=== PATIENT | male | born 1960 | race Caucasian/White ===

== ENCOUNTER 2019-03-27 15:56 | Inpatient (IN) | payer MEDICARE, MEDICAID ==
--- NOTE | 2019-03-27 16:15 | ER Document Report ---
ED NIH Stroke Scale - NIH Stroke Scale *: 1. NIH scale should be completed with appropriate accompanying assessment tools. *: 2. The NIH should reflect what the patient is capable of doing and should not be coached by the clinician. 1a. Level of Consciousness: 0=Alert;keenly responsive -: 1=Drowsy -: 2=Obtunded -: 3=Coma/unresponsive or reflex to noxious stimuli. 1a. Responses: 0 1b. Orientation Questions: a. What month is it? -: b. How old are you? -: 0=Answers both questions correctly. -: 1=Answers one question correctly or patient is intubated or has orotracheal trauma. -: 2=Answers neither question correctly. 1b. Responses: 1 - states does not know sinceprevious stroke 1c. Response to commands: a. Open and close eyes? -: b. Developmental Services Worker and release hand? -: Credit is given despite weakness. Demonstration of task is permitted. Substitute command if hands cannot be used. -: 0=Performs both tasks correctly -: 1=Performs one task correctly -: 2=Performs neither task correctly 1c. Responses: 0 2. Gaze: Establish eye contact and instruct patient to "Follow my finger" -: 0=Normal -: 1=Partial gaze palsy. Gaze is abnormal in one or both eyes, but where forced deviation or total gaze paresis is not present. -: 2=Forced deviation or total gaze paresis. 2. Responses: 0 3. Visual Hightower: Sees fingers in all four quadrants. -: 0=No visual loss. -: 1=Partial hemianopsia. -: 2=Complete hemianopsia. -: 3=Bilateral hemianopsia (including Cortical blindness) 3. Responses: 1 4. Facial Movement: Instruct patient to: -: a. Show me your teeth -: b. Raise your eyebrows -: c. Close your eyes -: d. Smile -: 0=Normal symmetrical movement -: 1=Minor paralysis (flattened nasolabial fold, asymmetry on smiling). -: 2=Partial paralysis (total or near total paralysis of lower face). -: 3=Complete paralysis of upper and lower face 4. Responses: 0 5. Motor functions (left arm): Alternate sides and extend each arm with palms down (90 degrees if sitting or 45 degrees for supine). -: 0=No drift;limb holds for full 10 seconds. -: 1=Drift; limb holds but drifts down before full 10 seconds, but does not hit bed. -: 2=Some effort against gravity; limb cannot get to or maintain position. -: 3=No effort against gravity; limb falls. -: 4=No movement. -: UN=Amputation, joint fusion, explain in comments. 5. Responses (left arm): 0 5. Motor Functions (right arm): Alternate sides and extend each arm with palms down (90 degrees if sitting or 45 degrees for supine). -: 0=No drift;limb holds for full 10 seconds. -: 1=Drift; limb holds but drifts down before full 10 seconds, but does not hit bed. -: 2=Some effort against gravity; limb cannot get to or maintain position. -: 3=No effort against gravity; limb falls. -: 4=No movement. -: UN=Amputation, joint fusion, explain in comments. 5. Responses (right arm): 0 6. Motor Functions (left leg): With patient lying supine, alternate sides and extend each leg (30 degrees always while supine). -: 0=No drift, leg holds position for full 5 seconds -: 1=Drift; leg falls before full 5 seconds but does not hit bed. -: 2=Some effort against gravity, leg falls to bed but some effort against gravity. -: 3=No effort against gravity, leg falls to bed immediately. -: 4=No movement. -: UN=Amputation, joint fusion; explain in comments. 6. Motor Functions (right leg): With patient lying supine, alternate sides and extend each leg (30 degrees always while supine). -: 0=No drift, leg holds position for full 5 seconds -: 1=Drift; leg falls before full 5 seconds but does not hit bed. -: 2=Some effort against gravity, leg falls to bed but some effort against gravity. -: 3=No effort against gravity, leg falls to bed immediately. -: 4=No movement. -: UN=Amputation, joint fusion; explain in comments. 7. Limb Ataxia: With eyes open instruct patient to: -: a. "Touch your finger to your nose". -: b. "Touch your heel to your lyons" -: 0=Absent -: 1=Present in one limb. -: 2=Present in two limbs. -: UN=Amputation or joint fusion; explain in comments. 7. Responses: 0 8. Sensory: Test sensation using pinprick or noxious stimuli. Test as many body parts as possible. -: 0=Normal;no sensory loss -: 1=Mile to moderate sensory loss (patient feels pin prick but is less sharp on affected side). -: 2=Severe or total sensory loss. 8. Responses: 0 9. Best Language: Instruct patient to: -: a. "Describe what you see in this picture." -: b. "Name the items in this picture." -: c. "Read these sentences." -: 0=No aphasia, normal -: 1=Mild to moderate aphasia. -: 2=Severe aphasia -: 3=Mute, global aphasia, no usable speech or auditory comprehension. 9. Responses: 1 10. Articulation, Dysarthia: Instruct patient to: -: "Read these words" or "Repeat these words" -: 0=Normal -: 1=Mild to moderate; patient may slur some words but can be understood without difficulty. -: 2=Severe; patients speech so slurred as to be unintelligible in the absence of dysphasia. -: UN=Intubated or other physical barrier, explain in comments. 10. Responses: 0 11. Extinction or inattention: 0=No abnormality -: 1= Visual, tactile, auditory, spatial, or personal inattention or extinction to bilateral simulation in one or the sensory modalities. -: 2=Profound leonard-inattention or leonard-inattention to more than one modality; does not recognize own hand. 11. Responses: 0 Total Score: 3
--- NOTE | 2019-03-27 16:20 | ER Document Report ---
ED Medical Screen (RME) - General Chief Complaint: S/S of Possible Stroke Stated Complaint: POSSIBLE STROKE Time Seen by Provider: 03/27/19 16:05 Primary Care Provider: MANISH POLLARD MD [Primary Care Provider] - Follow up as needed Mode of Arrival: Wheelchair Information source: Relative Notes: 58-year-old male presented in the for increased confusion more than normal. He had a stroke 6 years ago. states that when he came home with his friend he was slurring his speech and was not acting his normal self. She states that he always has tremors since his last stroke. She states the last time she saw him normal was at 815 this morning. When you asked the NIH questions he did did not know the month but answered all other questions appropriately with clear speech. states he does not know the month of the year since his last stroke. Patient does have tremors which states he has had since the last stroke but they are worse than normal. She states he looked very sick and like he was the past that when he came home she became very concerned and brought him to the emergency room. She states he does smoke 1/2 pack a day but does not drink or do any drugs. She states she he goes and helps a friend out sometimes and that is where he was when he came home. I have greeted and performed a rapid initial assessment of this patient. A comprehensive ED assessment and evaluation of the patient, analysis of test results and completion of medical decision making process will be conducted by an additional ED providers. TRAVEL OUTSIDE OF THE [place] IN LAST 30 DAYS: No - Related Data Allergies/Adverse Reactions: No Known Allergies Allergy (Unverified 01/06/13 11:46) Past Medical History - Past Medical History Cardiac Medical History: Reports: Hx Hypercholesterolemia, Hx Hypertension Denies: Hx Atrial Fibrillation, Hx Congestive Heart Failure, Hx Coronary Artery Disease, Hx Heart Attack, Hx Peripheral Vascular Disease, Hx Pulmonary Embolism, Hx Heart Murmur Pulmonary Medical History: Reports: Hx Pneumonia - as a child Denies: Hx Asthma, Hx Respiratory Failure, Hx Sleep Apnea, Hx Tuberculosis Neurological Medical History: Reports: Hx Cerebrovascular Accident - 08/30/2009. Denies: Hx Seizures Malignancy Medical History: Denies Hx Leukemia, Denies Hx Lung Cancer GI Medical History: Denies: Hx Hepatitis, Hx Hiatal Hernia, Hx Ulcer Musculoskeltal Medical History: Denies Hx Arthritis, Denies Hx Fibromyalgia, Denies Hx Multiple Sclerosis, Denies Hx Muscular Dystrophy Psychiatric Medical History: Denies: Hx Dementia Traumatic Medical History: Denies: Hx Fractures Infectious Medical History: Denies: Hx Hepatitis, Hx HIV Past Surgical History: Denies: Hx Open Heart Surgery, Hx Pacemaker Physical Exam - Vital signs Vitals: Temp Pulse Resp BP Pulse Ox 98.3 F 85 16 97/57 L 95 03/27/19 16:07 03/27/19 16:07 03/27/19 16:07 03/27/19 16:07 03/27/19 16:07 Course - Vital Signs Vital signs: Temp Pulse Resp BP Pulse Ox 98.3 F 85 16 97/57 L 95 03/27/19 16:07 03/27/19 16:07 03/27/19 16:07 03/27/19 16:07 03/27/19 16:07 Doctor's Discharge - Discharge Referrals: MANISH POLLARD MD [Primary Care Provider] - Follow up as needed
--- NOTE | 2019-03-27 16:32 | RADIOLOGY REPORT (SQ) ---
EXAM DESCRIPTION: CT HEAD WITHOUT COMPLETED DATE/TIME: 03/27/2019 4:22 pm REASON FOR STUDY: weakness previous stroke rule out stroke COMPARISON: CT brain dated 08/28/2009, MRI brain dated 08/29/2009 TECHNIQUE: Axial images acquired through the brain without intravenous contrast. Images reviewed wi th bone, brain and subdural windows. Additional sagittal and coronal reconstructions were generated. Images stored on PACS. All CT scanners at this facility use dose modulation, iterative reconstruction, and/or weight based d osing when appropriate to reduce radiation dose to as low as reasonably achievable (ALARA). [facility]: Dose Right [facility]: CareDose [facility]: Dose Right [facility]: Teradose 4D [facility]: Tugende RADIATION DOSE: CT Rad equipment meets quality standard of care and radiation dose reduction techniq ues were employed. CTDIvol: 48.6 mGy. DLP: 904 mGy-cm. mGy. LIMITATIONS: None. FINDINGS: VENTRICLES: Prominent. CEREBRUM: No masses. No hemorrhage. No midline shift. Areas of low density in the white matter mos t likely due to chronic micro-vascular ischemic change. No evidence for acute infarction. CEREBELLUM: No masses. No hemorrhage. No alteration of density. No evidence for acute infarction. There is an old infarct in the left aspect of the fer. EXTRAAXIAL SPACES: Mild age-related involutional change. No fluid collections. No masses. ORBITS AND GLOBE: No intra- or extraconal masses. Normal contour of globe without masses. CALVARIUM: No fracture. PARANASAL SINUSES: No fluid or mucosal thickening. SOFT TISSUES: No mass or hematoma. OTHER: No other significant finding. IMPRESSION: MILD CHRONIC CHANGES OF ATROPHY AND MICROVASCULAR ISCHEMIA. NO ACUTE PROCESS. EVIDENCE OF ACUTE STROKE: NO. COMMENT: Pertinent positive or negative findings of the imaging study reported as a CRITICAL EXAM karmen [employer] at16:25 on 03/27/2019. Category of Critical Exam: Code stroke. TECHNICAL DOCUMENTATION: JOB ID: [id number] Quality ID # [id number]: Final reports with documentation of one or more dose reduction techniques (e.g., Au tomated exposure control, adjustment of the mA and/or kV according to patient size, use of iterative reconstruction technique) 2010 [employer]- All Rights Reserved Reading location - IP/workstation name: [email or web address]
--- NOTE | 2019-03-27 16:54 | ER Document Report ---
ED General - General Chief Complaint: S/S of Possible Stroke Stated Complaint: POSSIBLE STROKE Time Seen by Provider: 03/27/19 16:05 Primary Care Provider: MANISH POLLARD MD [Primary Care Provider] - Follow up as needed Mode of Arrival: Wheelchair Information source: Patient Notes: HPI: 58-year-old male with past medical history as recorded including a stroke around 6 years ago with some baseline left lower extremity weakness affected more than the right leg who presents today with his sister. He lives with his sister. Supposedly the patient had an episode yesterday and today both witnessed by his friend. Patient states he was sitting and when he went to stand up he saw "different colored lights". He states he felt very lightheaded. He is not able to distinguish between presyncope and vertigo. He states he started to have some trembling in bilateral legs. No headache, neck pain, chest pain, abdominal pain, palpitations, fevers, vomiting, or diarrhea. He did have some slight confusion above baseline. This lasted around 10 minutes yesterday and again 10 minutes today. The sister states when she saw the patient he looked "very sick" when she got home. Patient's baseline mental status with some very mild confusion. He normally does not know the year but answers all questions appropriately. ROS: See HPI All other review of systems reviewed and otherwise negative Reviewed vital signs and nursing note as charted by RN. PHYSICAL EXAM: CONSTITUTIONAL: Alert and oriented and responds appropriately to questions. Well-appearing; well-nourished HEAD: Normocephalic; atraumatic EYES: PERRL; full extraocular range of motion; no nystagmus ENT: Normal nose; no rhinorrhea; moist mucous membranes; pharynx without lesions noted NECK: Supple without meningismus; non-tender; no carotid bruit; no cervical lymphadenopathy, no masses CARD: Regular rate and rhythm; no murmurs; symmetric distal pulses RESP: Normal chest excursion without splinting or tachypnea; breath sounds clear and equal bilaterally ABD/GI: Normal bowel sounds; non-distended; soft, non-tender; no palpable organomegaly or masses BACK: The back appears normal and is non-tender to palpation EXT: Normal ROM in all joints; non-tender to palpation; no edema SKIN: No acute lesions noted NEURO: CN 2-12 intact; 5/5 bilateral upper and lower extremity strength with sensation intact to light touch. NIH score is currently 0 PSYCH: The patient's mood and manner are appropriate. Grooming and personal hygiene are appropriate. TRAVEL OUTSIDE OF THE [place] IN LAST 30 DAYS: No - Related Data Allergies/Adverse Reactions: No Known Allergies Allergy (Unverified 01/06/13 11:46) Past Medical History - General Information source: Relative - Social History Smoking Status: Unknown if Ever Smoked Family History: Reviewed & Not Pertinent Patient has suicidal ideation: No Patient has homicidal ideation: No - Past Medical History Cardiac Medical History: Reports: Hx Hypercholesterolemia, Hx Hypertension Denies: Hx Atrial Fibrillation, Hx Congestive Heart Failure, Hx Coronary Artery Disease, Hx Heart Attack, Hx Peripheral Vascular Disease, Hx Pulmonary Embolism, Hx Heart Murmur Pulmonary Medical History: Reports: Hx Pneumonia - as a child Denies: Hx Asthma, Hx Respiratory Failure, Hx Sleep Apnea, Hx Tuberculosis Neurological Medical History: Reports: Hx Cerebrovascular Accident - 08/30/2009. Denies: Hx Seizures Renal/ Medical History: Denies: Hx Peritoneal Dialysis Malignancy Medical History: Denies Hx Leukemia, Denies Hx Lung Cancer GI Medical History: Denies: Hx Hepatitis, Hx Hiatal Hernia, Hx Ulcer Musculoskeletal Medical History: Denies Hx Arthritis, Denies Hx Fibromyalgia, Denies Hx Multiple Sclerosis, Denies Hx Muscular Dystrophy Psychiatric Medical History: Denies: Hx Dementia Traumatic Medical History: Denies: Hx Fractures Infectious Medical History: Denies: Hx Hepatitis, Hx HIV Past Surgical History: Denies: Hx Open Heart Surgery, Hx Pacemaker Physical Exam - Vital signs Vitals: Temp Pulse Resp BP Pulse Ox 98.3 F 85 16 97/57 L 95 03/27/19 16:07 03/27/19 16:07 03/27/19 16:07 03/27/19 16:07 03/27/19 16:07 Course - Re-evaluation Re-evalutation: Given the above history and physical, in triage the patient initially was taken back as a possible code stroke. Patient currently has no focal neurological deficits. Patient does not know the year which is baseline according to the sister at bedside since the stroke 6 years ago. Patient symptomatology appears to be bilateral to the lower extremities. I suppose this could be intracerebral, cardiac, dehydration, or electrolyte related. CT scan of the head, cardiac panel, EKG, and basic labs are pending. 08/23/19 16:51 EKG shows a HR of 67, normal axis, incomplete RBBB with inverted t waves in v2 and III. 03/27/19 17:21 CT imaging as recorded. Labs as recorded. Patient does appear to have acute renal failure. I have provided a liter of fluid. I believe patient will be admitted for gentle rehydration. Potassium as recorded. - Vital Signs Vital signs: Temp Pulse Resp BP Pulse Ox 98.3 F 85 16 97/57 L 95 03/27/19 16:07 03/27/19 16:07 03/27/19 16:07 03/27/19 16:07 03/27/19 16:07 - Laboratory Result Diagrams: 03/27/19 16:32 03/27/19 16:32 Laboratory results interpreted by me: 03/27/19 03/27/19 16:32 16:32 RBC 4.04 L Hgb 12.2 L Hct 35.6 L Potassium 3.5 L BUN 51 H Creatinine 3.61 H Est GFR ( Amer) 21 L Est GFR (MDRD) Non-Af 17 L Direct Bilirubin 0.5 H Creatine Kinase 54 L Total Protein 8.7 H Critical Care Note - Critical Care Note Total time excluding time spent on procedures (mins): 35 Discharge - Discharge Clinical Impression: Dehydration Acute renal failure Qualifiers: Acute renal failure type: unspecified Qualified Code(s): N17.9 - Acute kidney failure, unspecified Condition: Fair Disposition: ADMITTED INPATIENT Admitting Provider: Nikolas (Hospitalist) Referrals: MANISH POLLARD MD [Primary Care Provider] - Follow up as needed
[2019-03-27 16:55] LABS: ABSOLUTE BASOPHILS # (AUTO) 0.1 10^3/uL (0.0-0.2); ABSOLUTE EOSINOPHILS # (AUTO) 0.2 10^3/uL (0.0-0.6); ABSOLUTE LYMPHOCYTES (AUTO) 2.4 10^3/uL (0.5-4.7); ABSOLUTE MONOCYTES (AUTO) 0.9 10^3/uL (0.1-1.4); ABSOLUTE NEUT (AUTO) 5.7 10^3/uL (1.7-8.2); BASOPHILS % (AUTO) 0.8 % (0-2); EOSINOPHILS % (AUTO) 2.4 % (0-6); HEMATOCRIT 35.6 % (37.9-51.0); HEMOGLOBIN 12.2 g/dL (13.5-17.0); LYMPHOCYTES % (AUTO) 25.7 % (13-45); MEAN CORPUSCULAR HEMOGLOBIN 30.2 pg (27.0-33.4); MEAN CORPUSCULAR HGB CONC 34.3 g/dL (32.0-36.0); MEAN CORPUSCULAR VOLUME 88 fl (80-97); PLATELET COUNT 378 10^3/uL (150-450); RED BLOOD COUNT 4.04 10^6/uL (4.35-5.55); RED CELL DISTRIBUTION WIDTH 13.8 % (11.5-14.0); SEGMENTED NEUTROPHILS % (AUTO) 61.1 % (42-78); TOTAL CELLS COUNTED % (AUTO) 100 %; WHITE BLOOD COUNT 9.4 10^3/uL (4.0-10.5)
[2019-03-27 17:02] LABS: INTERNATIONAL RATION (INR) 1.18; PROTHROMBIN TIME 15.1 SEC (11.4-15.4)
[2019-03-27 17:03] LABS: PARTIAL THROMBOPLASTIN TIME 25.1 SEC (23.5-35.8)
[2019-03-27 17:12] LABS: ALBUMIN 4.6 g/dL (3.5-5.0); ALKALINE PHOSPHATASE 43 U/L (38-126); ANION GAP 10 (5-19); ASPARTATE AMINO TRANSFERASE 35 U/L (17-59); BILIRUBIN,DIRECT 0.5 mg/dL (0.0-0.4); BILIRUBIN,TOTAL 0.6 mg/dL (0.2-1.3); BLOOD UREA NITROGEN 51 mg/dL (7-20); CARBON DIOXIDE 25 mmol/L (22-30); CHLORIDE 106 mmol/L (98-107); CREATINE KINASE 54 U/L (55-170); GLUCOSE 93 mg/dL (75-110); POTASSIUM 3.5 mmol/L (3.6-5.0); TOTAL PROTEIN 8.7 g/dL (6.3-8.2)
[2019-03-27] MEDS ORDERED: NORMAL SALINE 1000 ML 1,000 ML IV ONE (17:20)
[2019-03-27 17:35] LABS: ALCOHOL < 10 mg/dL (NONE DETECTED)
[2019-03-27] MEDS ORDERED: MAGNESIUM HYDROXIDE SUSP 30 ML UDCUP PO PRN (18:20)
[2019-03-27] MEDS ORDERED: OXYCODONE-ACETAMINOPHEN 5-325 MG TABLET PO PRN (18:20)
[2019-03-27] MEDS ORDERED: ACETAMINOPHEN 325 MG TABLET PO PRN (18:20)
[2019-03-27] MEDS ORDERED: ONDANSETRON HCL INJ/PF 4 MG/2 ML SDV IV PRN (18:20)
[2019-03-27] MEDS ORDERED: ONDANSETRON 4 MG TAB.RAPDIS PO PRN (18:20)
[2019-03-27] MEDS ORDERED: ENOXAPARIN SODIUM INJ 40 MG/0.4 ML DISP.SYRIN SUBCUT SCH (18:45)
--- NOTE | 2019-03-27 18:48 | PDOC H&P ---
History of Present Illness Admission Date/PCP: 03/27/19 18:28 MANISH POLLARD MD 03/27/2019 admitted for confusion lightheaded ataxia and "shaky". Elevated creatinine History of Present Illness: DONALD GOMES is a 58 year old male who for the last week now has felt lightheaded and "off-balance". he has also been shaky and confused according to his sister. Patient is also felt weaker in the last week. Patient had a CVA about 6 years ago that left him with weakness in his left lower extremity. Patient is also had some dysarthria with his speech, but that seems to be worse in the last week as well according to his sister On his admission labs his BUN is elevated at 51 creatinine 3.61 Past Medical History Cardiac Medical History: Reports: Hyperlipidema, Hypertension Denies: Atrial Fibrillation, Congestive Heart Failure, Coronary Artery Di sease, Myocardial Infarction, Peripheral Vascular Disease, Pulmonary Embolism, Heart Murmur Pulmonary Medical History: Reports: Pneumonia - as a child Denies: Asthma, Respiratory Failure, Sleep Apnea, Tuberculosis Neurological Medical History: Reports: Ischemic CVA Denies: Seizures Malignancy Medical History: Denies: Leukemia, Lung Cancer GI Medical History: Denies: Hepatitis, Hiatal Hernia Musculoskeltal Medical History: Denies: Arthritis, Fibromyalgia Psychiatric Medical History: Denies: Dementia Hematology: Denies: Anemia, Hemophilia, Sickle Cell Disease Infectious Medical History: Denies: HIV Past Surgical History Past Surgical History: Denies: Pacemaker Social History Smoking Status: Unknown if Ever Smoked Hx Recreational Drug Use: Yes - Yrs ago Hx Prescription Drug Abuse: No - Advance Directive Resuscitation Status: Full Code Family History Family History: Reviewed & Not Pertinent Parental Family History Reviewed: No Children Family History Reviewed: No Sibling(s) Family History Reviewed.: No Medication/Allergy Home Medications: Aspirin [Aspirin EC] 81 mg PO DAILY 01/06/13 Dipyridamole [Persantine] 50 mg PO BID 01/06/13 Lisinopril [Prinivil 40 mg Tablet] 40 mg PO DAILY 01/06/13 Pravastatin Sodium [Pravachol] 80 mg PO QHS 01/06/13 Fenofibric Acid (Choline) [Trilipix] 135 mg PO DAILY 02/11/14 Allergies/Adverse Reactions: No Known Allergies Allergy (Unverified 01/06/13 11:46) Review of Systems Constitutional: PRESENT: weakness. ABSENT: chills, fever(s), headache(s), weight gain, weight loss Eyes: PRESENT: visual disturbances - Patient states that things have been blurred or hazy in the last week with his vision Cardiovascular: ABSENT: chest pain, dyspnea on exertion, edema, orthropnea, palpitations Respiratory: ABSENT: cough, hemoptysis Neurological: PRESENT: lack of coordination, tremor(s), weakness Psychiatric: ABSENT: anxiety, depression, homidical ideation, suicidal ideation Physical Exam Vital Signs: Temp Pulse Resp BP Pulse Ox 98.3 F 85 16 97/57 L 95 03/27/19 16:07 03/27/19 16:07 03/27/19 16:07 03/27/19 16:07 03/27/19 16:07 Intake & Output 03/26/19 03/27/19 03/28/19 06:59 06:59 06:59 Weight 71.668 kg General appearance: PRESENT: mild distress Head exam: PRESENT: atraumatic, normocephalic Eye exam: PRESENT: conjunctiva pink, EOMI, PERRLA. ABSENT: scleral icterus Neck exam: ABSENT: carotid bruit, JVD, lymphadenopathy, thyromegaly Respiratory exam: PRESENT: clear to auscultation jackie. ABSENT: rales, rhonchi, wheezes Cardiovascular exam: PRESENT: RRR. ABSENT: diastolic murmur, rubs, systolic murmur Neurological exam: PRESENT: alert, awake, oriented to person, oriented to place, oriented to time, oriented to situation, CN II-XII grossly intact - Workforce Specialist are strong bilaterally. Patient has a weakness in his left lower extremity that is old, other Results Laboratory Results: 03/27/19 16:32 03/27/19 16:32 03/27/19 03/27/19 16:32 16:32 WBC 9.4 RBC 4.04 L Hgb 12.2 L Hct 35.6 L MCV 88 MCH 30.2 MCHC 34.3 RDW 13.8 Plt Count 378 Seg Neutrophils % 61.1 Sodium 140.7 Potassium 3.5 L Chloride 106 Carbon Dioxide 25 Anion Gap 10 BUN 51 H Creatinine 3.61 H Est GFR ( Amer) 21 L Glucose 93 Calcium 10.0 Total Bilirubin 0.6 AST 35 Alkaline Phosphatase 43 Total Protein 8.7 H Albumin 4.6 03/27/19 03/27/19 16:32 16:32 Creatine Kinase 54 L CK-MB (CK-2) < 0.22 Impressions: Head CT 03/27/19 16:05 IMPRESSION: MILD CHRONIC CHANGES OF ATROPHY AND MICROVASCULAR ISCHEMIA. NO ACUTE PROCESS. EVIDENCE OF ACUTE STROKE: NO. Assessment and Plan - Diagnosis (1) CVA (cerebral vascular accident) Is this a current diagnosis for this admission?: Yes Plan: Patient has CVA 6 years ago and was actually admitted here at [place]. This left him with a residual left lower extremity weakness some speech dysarthria. According to the sister in the last day or 2 he is seemed weaker than normal and more confused. According to a coworker it is been going on about a week now She emphatically denies any drugs no marijuana no alcohol, no illegal substances. Patient does admit to smoking about 10 cigarettes/day. (2) Acute renal failure Qualifiers: Acute renal failure type: unspecified Qualified Code(s): N17.9 - Acute kidney failure, unspecified Is this a current diagnosis for this admission?: Yes Plan: Patient's BUN is 51 creatinine 3.61 GFR 17. CK is 5413 8.7 sodium 140 potassium 3.5 as far as by history I can find no previous functions although I will search the records. Patient and his sister do not admit to him having any kind of kidney disease (3) Dehydration Is this a current diagnosis for this admission?: Yes Plan: Patient electrolytes BUN and creatinine indicate dehydration acute renal injury - Time Time Spent with patient: 25-34 minutes
[2019-03-27] MEDS ORDERED: CLOPIDOGREL BISULFATE 75 MG TABLET PO SCH (19:00)
[2019-03-27] MEDS ORDERED: LISINOPRIL 10 MG TABLET PO SCH (19:15)
[2019-03-27 21:04] LABS: INTERNATIONAL RATION (INR) 1.24; PROTHROMBIN TIME 15.6 SEC (11.4-15.4)
[2019-03-27] MEDS: NORMAL SALINE 1000 ML 1,000 ML IV PRN (21:11)
[2019-03-27] MEDS: ENOXAPARIN SODIUM INJ 30 MG/0.3 ML DISP.SYRIN SUBCUT SCH (21:12)
[2019-03-27] MEDS: ASPIRIN 81 MG TABLET, ENT COATED PO SCH (22:58)
[2019-03-27] MEDS: FAMOTIDINE 20 MG TABLET PO SCH (22:59)
--- NOTE | 2019-03-27 23:56 | RADIOLOGY REPORT (SQ) ---
CLINICAL HISTORY: confusion, ataxia COMPARISON: None. TECHNIQUE: MR BRAIN WITHOUT IV CONTRAST on 03/27/2019 12:00 AM CDT FINDINGS: There are no areas of restricted diffusion. There is mild diffuse cerebral atrophy. There is no acute hemorrhage, midline shift, mass effect. There is mild diffuse cerebral atrophy. There is an old lacunar infarct in the left fer. Expected intracranial flow voids are present. The orbits, globes, paranasal sinuses and mastoid air cells are clear. IMPRESSION: No acute intracranial findings.
--- NOTE | 2019-03-28 00:05 | RADIOLOGY REPORT (SQ) ---
CLINICAL HISTORY: ataxia, confusion, previous cva COMPARISON: None. TECHNIQUE: MR BRAIN ANGIOGRAPHY WITHOUT IV CONTRAST on 03/27/2019 12:00 AM CDT This exam was performed according to our departmental dose-optimization program, which includes automated exposure control, adjustment of the mA and/or kV according to patient size and/or use of iterative reconstruction technique. MIP reconstructions were generated. Stenoses are calculated by NASCET criteria. FINDINGS: Bilateral anterior and middle cerebral arteries are diffusely patent. The vertebral basilar system is unremarkable other than diminutive in appearance of distal right vertebral artery. IMPRESSION: Diminutive appearance of right vertebral artery, incompletely assessed. Otherwise no significant vascular abnormalities CAROTID STENOSIS REFERENCE USING NASCET CRITERIA: % ICA stenosis = (1 - narrowest ICA diameter/diameter of distal cervical ICA) x 100. Mild - <50% stenosis. Moderate - 50-69% stenosis. Severe - 70-94% stenosis. Near occlusion - 95-99% stenosis. Occluded - 100% stenosis.
[2019-03-28 07:08] LABS: ABSOLUTE BASOPHILS # (AUTO) 0.1 10^3/uL (0.0-0.2); ABSOLUTE EOSINOPHILS # (AUTO) 0.3 10^3/uL (0.0-0.6); ABSOLUTE LYMPHOCYTES (AUTO) 2.4 10^3/uL (0.5-4.7); ABSOLUTE MONOCYTES (AUTO) 0.6 10^3/uL (0.1-1.4); ABSOLUTE NEUT (AUTO) 3.5 10^3/uL (1.7-8.2); BASOPHILS % (AUTO) 1.2 % (0-2); EOSINOPHILS % (AUTO) 3.8 % (0-6); HEMATOCRIT 32.9 % (37.9-51.0); HEMOGLOBIN 11.3 g/dL (13.5-17.0); LYMPHOCYTES % (AUTO) 34.7 % (13-45); MEAN CORPUSCULAR HEMOGLOBIN 30.7 pg (27.0-33.4); MEAN CORPUSCULAR HGB CONC 34.5 g/dL (32.0-36.0); MEAN CORPUSCULAR VOLUME 89 fl (80-97); MONOCYTES % (AUTO) 9.3 % (3-13); PLATELET COUNT 262 10^3/uL (150-450); RED CELL DISTRIBUTION WIDTH 13.6 % (11.5-14.0); TOTAL CELLS COUNTED % (AUTO) 100 %; WHITE BLOOD COUNT 6.8 10^3/uL (4.0-10.5)
[2019-03-28 07:36] LABS: ALKALINE PHOSPHATASE 37 U/L (38-126); ANION GAP 10 (5-19); ASPARTATE AMINO TRANSFERASE 24 U/L (17-59); BILIRUBIN,DIRECT 0.3 mg/dL (0.0-0.4); BILIRUBIN,TOTAL 0.5 mg/dL (0.2-1.3); BLOOD UREA NITROGEN 48 mg/dL (7-20); CALCIUM 9.1 mg/dL (8.4-10.2); CARBON DIOXIDE 23 mmol/L (22-30); CHLORIDE 109 mmol/L (98-107); CHOLESTEROL 118.82 mg/dL (0-200); GLUCOSE 82 mg/dL (75-110); PHOSPHORUS 4.1 mg/dL (2.5-4.5); POTASSIUM 4.3 mmol/L (3.6-5.0); TRIGLYCERIDES 118 mg/dL (<150)
[2019-03-28 07:48] LABS: DIRECT LDL 70 mg/dL (<100)
[2019-03-28] MEDS ORDERED: HYDROCHLOROTHIAZIDE 12.5 MG TABLET PO SCH (08:00)
[2019-03-28] MEDS ORDERED: AMLODIPINE BESYLATE 10 MG TABLET PO SCH (10:00)
[2019-03-28] MEDS: DOCUSATE SODIUM 100 MG CAPSULE PO SCH (10:25)
[2019-03-28] MEDS: FAMOTIDINE 20 MG TABLET PO SCH ×2 (10:25→21:00)
[2019-03-28] MEDS: ENOXAPARIN SODIUM INJ 30 MG/0.3 ML DISP.SYRIN SUBCUT SCH (10:26)
--- NOTE | 2019-03-28 11:56 | Progress Note Acknowledgement ---
Progress Note Acknowledgement Progess Note Acknowledgement: I, the undersigned member of the medical staff with appropriate privileges and with supervisory authority over [ PAC ], a dependent practice allied health professional, acknowledge that I have reviewed the progress notes entered on this patient, and in my professional judgment believe that the assessment made and/or any care evidenced was appropriate
--- NOTE | 2019-03-28 12:04 | PDOC PROGRESS REPORT ---
Subjective Progress Note for:: 03/28/19 Subjective:: 03/28/2019. He was admitted to hospital yesterday for confusion ataxia and lightheadedness. Patient's neurology work-up so far has been negative MRI of the brain negative MRI of the brain negative CT of the head scan only chronic ischemic changes no acute changes. Graph patient reports he is feeling stronger today also is alert and oriented. Possibly DC to home tomorrow if renal function continues to improve Reason For Visit: ALTERED MENTAL STATUS,ATAXIA, CVA HYPERTENSION Physical Exam Vital Signs: Temp Pulse Resp BP Pulse Ox 98.2 F 71 16 96/55 L 98 03/28/19 08:08 03/28/19 08:08 03/28/19 08:08 03/28/19 08:08 03/28/19 08:08 Intake & Output 03/27/19 03/28/19 03/29/19 06:59 06:59 06:59 Intake Total 1000 Output Total 0 Balance 1000 Weight 65.5 kg General appearance: PRESENT: no acute distress, well-developed, well-nourished Respiratory exam: PRESENT: clear to auscultation jackie. ABSENT: rales, rhonchi, wheezes Cardiovascular exam: PRESENT: RRR. ABSENT: diastolic murmur, rubs, systolic murmur Neurological exam: PRESENT: alert, awake, oriented to person, oriented to place, oriented to time, oriented to situation, CN II-XII grossly intact, other - Patient answers all questions appropriately, states he is feeling better, stronger, less confused. ABSENT: motor sensory deficit Psychiatric exam: PRESENT: appropriate affect, normal mood. ABSENT: homicidal ideation, suicidal ideation Results Laboratory Results: 03/28/19 06:30 03/28/19 06:30 03/27/19 03/27/19 03/27/19 16:32 16:32 16:32 WBC 9.4 RBC 4.04 L Hgb 12.2 L Hct 35.6 L MCV 88 MCH 30.2 MCHC 34.3 RDW 13.8 Plt Count 378 Seg Neutrophils % 61.1 Sodium 140.7 Potassium 3.5 L Chloride 106 Carbon Dioxide 25 Anion Gap 10 BUN 51 H Creatinine 3.61 H Est GFR ( Amer) 21 L Glucose 93 Calcium 10.0 Phosphorus Magnesium Total Bilirubin 0.6 AST 35 Alkaline Phosphatase 43 Ammonia Total Protein 8.7 H Albumin 4.6 Triglycerides Cholesterol LDL Cholesterol Direct VLDL Cholesterol HDL Cholesterol TSH 0.46 L 03/27/19 03/28/19 03/28/19 20:11 06:30 06:30 WBC 6.8 RBC 3.70 L Hgb 11.3 L Hct 32.9 L MCV 89 MCH 30.7 MCHC 34.5 RDW 13.6 Plt Count 262 Seg Neutrophils % 51.0 Sodium 141.5 Potassium 4.3 Chloride 109 H Carbon Dioxide 23 Anion Gap 10 BUN 48 H Creatinine 2.39 H Est GFR ( Amer) 34 L Glucose 82 Calcium 9.1 Phosphorus 4.1 Magnesium 2.0 Total Bilirubin 0.5 AST 24 Alkaline Phosphatase 37 L Ammonia < 8.7 L Total Protein 7.0 Albumin 4.0 Triglycerides 118 Cholesterol 118.82 LDL Cholesterol Direct 70 VLDL Cholesterol 24.0 HDL Cholesterol 31 L TSH 03/27/19 03/27/19 16:32 16:32 Creatine Kinase 54 L CK-MB (CK-2) < 0.22 Impressions: Brain MRI with MRA 03/27/19 00:00 IMPRESSION: Diminutive appearance of right vertebral artery, incompletely assessed. Otherwise no significant vascular abnormalities CAROTID STENOSIS REFERENCE USING NASCET CRITERIA: % ICA stenosis = (1 - narrowest ICA diameter/diameter of distal cervical ICA) x 100. Mild - <50% stenosis. Moderate - 50-69% stenosis. Severe - 70-94% stenosis. Near occlusion - 95-99% stenosis. Occluded - 100% stenosis. Head MRI 03/27/19 00:00 IMPRESSION: No acute intracranial findings. Head CT 03/27/19 16:05 IMPRESSION: MILD CHRONIC CHANGES OF ATROPHY AND MICROVASCULAR ISCHEMIA. NO ACUTE PROCESS. EVIDENCE OF ACUTE STROKE: NO. Assessment and Plan - Diagnosis (1) CVA (cerebral vascular accident) Is this a current diagnosis for this admission?: Yes Plan: Patient has CVA 6 years ago and was actually admitted here at [facility]. This left him with a residual left lower extremity weakness some speech dysarthria. According to the sister in the last day or 2 he is seemed weaker than normal and more confused. According to a coworker it is been going on about a week now She emphatically denies any drugs no marijuana no alcohol, no illegal substances. Patient does admit to smoking about 10 cigarettes/day. 03/28/2019 MRI, MRA, CT of the head show no acute findings. patient is neurologically stable today, patient states he feels less confused as well as stronger (2) Acute renal failure Qualifiers: Acute renal failure type: unspecified Qualified Code(s): N17.9 - Acute kidney failure, unspecified Is this a current diagnosis for this admission?: Yes Plan: Patient's BUN is 51 creatinine 3.61 GFR 17. CK is 5413 8.7 sodium 140 potassium 3.5 as far as by history I can find no previous functions although I will search the records. Patient and his sister do not admit to him having any kind of kidney disease. 03-28-19 BUN today is come down to 48 creatinine is come down to 2.39. We will continue IV fluids rehydrate. (3) Dehydration Is this a current diagnosis for this admission?: Yes Plan: Patient electrolytes BUN and creatinine indicate dehydration acute renal injury 03/28/2019 his renal functions have improved with IV fluids. He is currently getting normal saline at 150 an hour this was started last night - Time Time Spent with patient: 25-34 minutes - Patient's home medicines are now available to review. I will make adjustments as needed.
[2019-03-28] MEDS ORDERED: LISINOPRIL 10 MG TABLET PO SCH (13:00)
[2019-03-28] MEDS: AMLODIPINE BESYLATE 10 MG TABLET PO SCH (14:30)
[2019-03-28] MEDS: FLUOXETINE HCL 20 MG CAPSULE PO SCH (14:34)
[2019-03-28] MEDS: FENOFIBRATE NANOCRYSTALLIZED 145 MG TABLET PO SCH (14:34)
[2019-03-28] MEDS: HYDROCHLOROTHIAZIDE 12.5 MG TABLET PO SCH (14:34)
[2019-03-28] MEDS ORDERED: LORAZEPAM INJ 2 MG/1 ML VIAL ONE (17:31)
[2019-03-28] MEDS ORDERED: LORAZEPAM INJ 2 MG/1 ML VIAL IV PRN (17:53)
[2019-03-28] MEDS: NORMAL SALINE 1000 ML 1,000 ML IV PRN (18:50)
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
--- NOTE | 2019-03-28 19:08 | EKG REPORT ---
SEVERITY:- BORDERLINE ECG - SINUS RHYTHM PROBABLE LEFT ATRIAL ABNORMALITY : Confirmed by: Yvrose Stallworth MD 28-Mar-2019 19:07:34
[2019-03-28] MEDS: ASPIRIN 81 MG TABLET, ENT COATED PO SCH (21:00)
[2019-03-28 21:27] LABS: URINE AMPHETAMINES SCREEN NEGATIVE; URINE BARBITURATES SCREEN NEGATIVE; URINE BENZODIAZEPINES SCREEN NEGATIVE; URINE COCAINE SCREEN NEGATIVE; URINE MARIJUANA (THC) SCREEN NEGATIVE; URINE METHADONE SCREEN NEGATIVE; URINE PHENCYCLIDINE SCREEN NEGATIVE
[2019-03-29 01:34] LABS: APPEARANCE,URINE CLEAR; BILIRUBIN,URINE NEGATIVE (NEGATIVE); COLOR,URINE YELLOW; GLUCOSE, URINE NEGATIVE (NEGATIVE); KETONES,URINE NEGATIVE (NEGATIVE); LEUKOCYTE ESTERASE,URINE NEGATIVE (NEGATIVE); NITRITE,URINE NEGATIVE (NEGATIVE); PROTEIN,URINE NEGATIVE (NEGATIVE); URINE SPECIFIC GRAVITY 1.016; UROBILINOGEN,URINE NEGATIVE mg/dL (<2.0)
[2019-03-29 02:33] LABS: URINE CREATININE 127.6 mg/dL (22-328)
[2019-03-29 03:43] LABS: ABSOLUTE BASOPHILS # (AUTO) 0.1 10^3/uL (0.0-0.2); ABSOLUTE EOSINOPHILS # (AUTO) 0.3 10^3/uL (0.0-0.6); ABSOLUTE LYMPHOCYTES (AUTO) 2.6 10^3/uL (0.5-4.7); ABSOLUTE MONOCYTES (AUTO) 0.6 10^3/uL (0.1-1.4); ABSOLUTE NEUT (AUTO) 4.6 10^3/uL (1.7-8.2); BASOPHILS % (AUTO) 0.7 % (0-2); EOSINOPHILS % (AUTO) 3.1 % (0-6); HEMATOCRIT 30.7 % (37.9-51.0); HEMOGLOBIN 10.6 g/dL (13.5-17.0); MEAN CORPUSCULAR HEMOGLOBIN 30.5 pg (27.0-33.4); MEAN CORPUSCULAR HGB CONC 34.6 g/dL (32.0-36.0); MEAN CORPUSCULAR VOLUME 88 fl (80-97); MONOCYTES % (AUTO) 7.4 % (3-13); PLATELET COUNT 294 10^3/uL (150-450); RED BLOOD COUNT 3.48 10^6/uL (4.35-5.55); RED CELL DISTRIBUTION WIDTH 13.7 % (11.5-14.0); SEGMENTED NEUTROPHILS % (AUTO) 56.8 % (42-78); TOTAL CELLS COUNTED % (AUTO) 100 %; WHITE BLOOD COUNT 8.2 10^3/uL (4.0-10.5)
[2019-03-29] MEDS: LORAZEPAM INJ 2 MG/1 ML VIAL IV PRN ×3 (04:31→17:56)
[2019-03-29 05:24] LABS: ANION GAP 6 (5-19); BLOOD UREA NITROGEN 35 mg/dL (7-20); CARBON DIOXIDE 23 mmol/L (22-30); CHLORIDE 112 mmol/L (98-107); GLUCOSE 84 mg/dL (75-110); POTASSIUM 3.9 mmol/L (3.6-5.0)
[2019-03-29] MEDS: NORMAL SALINE 1000 ML 1,000 ML IV PRN ×3 (07:00→20:00)
[2019-03-29] MEDS: HYDROCHLOROTHIAZIDE 12.5 MG TABLET PO SCH (07:47)
[2019-03-29] MEDS ORDERED: HYDRALAZINE HCL INJ/PF 20 MG/1 ML SDV IV PRN (09:36)
--- NOTE | 2019-03-29 09:47 | Progress Note Acknowledgement ---
Progress Note Acknowledgement Progess Note Acknowledgement: I, the undersigned member of the medical staff with appropriate privileges and with supervisory authority over [Ramesh Bartholomew], a dependent practice allied health professional, acknowledge that I have reviewed the progress notes entered on this patient, and in my professional judgment believe that the assessment made and/or any care evidenced was appropriate
--- NOTE | 2019-03-29 09:47 | PDOC PROGRESS REPORT ---
Subjective Progress Note for:: 03/29/19 Subjective:: March 29, 2019-patient is confused will not answer questions at this time. Remains in four-point restraints Reason For Visit: ALTERED MENTAL STATUS,ATAXIA, CVA HYPERTENSION Physical Exam Vital Signs: Temp Pulse Resp BP Pulse Ox 97.5 F 65 14 110/72 99 03/29/19 08:01 03/29/19 08:00 03/29/19 08:01 03/29/19 08:01 03/29/19 08:01 Intake & Output 03/28/19 03/29/19 03/30/19 06:59 06:59 06:59 Intake Total 1000 1360 Output Total 0 515 60 Balance 1000 845 -60 Weight 65.5 kg 66.9 kg General appearance: PRESENT: no acute distress, well-developed, well-nourished Neck exam: ABSENT: carotid bruit, JVD, lymphadenopathy, thyromegaly Respiratory exam: PRESENT: clear to auscultation jackie. ABSENT: rales, rhonchi, wheezes Cardiovascular exam: PRESENT: RRR. ABSENT: diastolic murmur, rubs, systolic murmur Pulses: PRESENT: normal dorsalis pedis pul Vascular exam: PRESENT: normal capillary refill GI/Abdominal exam: PRESENT: normal bowel sounds, soft. ABSENT: distended, guarding, mass, organolmegaly, rebound, tenderness Extremities exam: PRESENT: full ROM. ABSENT: calf tenderness, clubbing, pedal edema Neurological exam: PRESENT: other - Unable to assess as patient is confused Psychiatric exam: PRESENT: other - Unable to assess as patient is confused Skin exam: PRESENT: dry, intact, warm. ABSENT: cyanosis, rash Results Laboratory Results: 03/29/19 03:23 03/29/19 03:23 03/28/19 03/29/19 03/29/19 20:55 03:23 03:23 WBC 8.2 RBC 3.48 L Hgb 10.6 L Hct 30.7 L MCV 88 MCH 30.5 MCHC 34.6 RDW 13.7 Plt Count 294 Seg Neutrophils % 56.8 Sodium 140.7 Potassium 3.9 Chloride 112 H Carbon Dioxide 23 Anion Gap 6 BUN 35 H Creatinine 1.64 H Est GFR ( Amer) 52 L Glucose 84 Calcium 9.0 Urine Color YELLOW Urine Appearance CLEAR Urine pH 5.0 Ur Specific [place] 1.016 Urine Protein NEGATIVE Urine Glucose (UA) NEGATIVE Urine Ketones NEGATIVE Urine Blood NEGATIVE Urine Nitrite NEGATIVE Ur Leukocyte Esterase NEGATIVE Urine WBC (Auto) 2 Urine RBC (Auto) 2 03/27/19 03/27/19 16:32 16:32 Creatine Kinase 54 L CK-MB (CK-2) < 0.22 Impressions: Brain MRI with MRA 03/27/19 00:00 IMPRESSION: Diminutive appearance of right vertebral artery, incompletely assessed. Otherwise no significant vascular abnormalities CAROTID STENOSIS REFERENCE USING NASCET CRITERIA: % ICA stenosis = (1 - narrowest ICA diameter/diameter of distal cervical ICA) x 100. Mild - <50% stenosis. Moderate - 50-69% stenosis. Severe - 70-94% stenosis. Near occlusion - 95-99% stenosis. Occluded - 100% stenosis. Head MRI 03/27/19 00:00 IMPRESSION: No acute intracranial findings. Head CT 03/27/19 16:05 IMPRESSION: MILD CHRONIC CHANGES OF ATROPHY AND MICROVASCULAR ISCHEMIA. NO ACUTE PROCESS. EVIDENCE OF ACUTE STROKE: NO. Assessment and Plan - Diagnosis (1) CVA (cerebral vascular accident) Is this a current diagnosis for this admission?: Yes Plan: Patient has CVA 6 years ago and was actually admitted here at [facility]. This left him with a residual left lower extremity weakness some speech dysarthria. According to the sister in the last day or 2 he is seemed weaker than normal and more confused. According to a coworker it is been going on about a week now She emphatically denies any drugs no marijuana no alcohol, no illegal substance s. Patient does admit to smoking about 10 cigarettes/day. 03/28/2019 MRI, MRA, CT of the head show no acute findings. patient is neurologically stable today, patient states he feels less confused as well as stronger 03/29/2019-MRI and CAT scan of the brain shows no acute findings. Patient remains confused after becoming extremely violent yesterday and had to be put in four-point restraints. Also getting 1 mg of Ativan every 4 hours. Stable from a CVA standpoint (2) Acute renal failure Qualifiers: Acute renal failure type: unspecified Qualified Code(s): N17.9 - Acute kidney failure, unspecified Is this a current diagnosis for this admission?: Yes Plan: Patient's BUN is 51 creatinine 3.61 GFR 17. CK is 5413 8.7 sodium 140 potassium 3.5 as far as by history I can find no previous functions although I will search the records. Patient and his sister do not admit to him having any kind of kidney disease. 03-28-19 BUN today is come down to 48 creatinine is come down to 2.39. We will continue IV fluids rehydrate. 03/29/2019-continues to improve creatinine today 1.64. We will continue hydration continue to follow with daily BMPs. (3) Dehydration Is this a current diagnosis for this admission?: Yes Plan: Patient electrolytes BUN and creatinine indicate dehydration acute renal injury 03/28/2019 his renal functions have improved with IV fluids. He is currently getting normal saline at 150 an hour this was started last night.. 03/29/2019-continues to show improvement continue IV fluids (4) Acute delirium Is this a current diagnosis for this admission?: Yes Plan: 03/29/2019-patient became acutely confused combative trying to hurt himself and others yesterday. He was placed in four-point restraints and was given IV Ativan and Geodon for agitation. At this time patient is laying in bed still in four-point restraints confused unable to answer questions. Patient was awoke around 4:00 and was thrashing and received more Ativan. I am unsure of the etiology of this event. Patient does have a decreased TSH I will obtain a T4 and add medications as appropriate, I will check for heavy metals, HIV, and as he has an elevated total protein we will check a serum protein electrophoresis for multiple myeloma. (5) Hyperthyroidism Is this a current diagnosis for this admission?: Yes Plan: 03/29/2019-patient does have a depressed TSH of 0.46 we will obtain a T4 and add appropriate medications. - Time Time Spent with patient: 25-34 minutes - Inpatient Certification Based on my medical assessment, after consideration of the patient's comorbidities, presenting symptoms, or acuity I expect that the services needed warrant INPATIENT care.: Yes I certify that my determination is in accordance with my understanding of Medicare's requirements for reasonable and necessary INPATIENT services [42 CFR 412.3e].: Yes Medical Necessity: Other - IV fluids, ICU four-point restraints
[2019-03-29] MEDS: DOCUSATE SODIUM 100 MG CAPSULE PO SCH (10:15)
[2019-03-29] MEDS: AMLODIPINE BESYLATE 10 MG TABLET PO SCH (10:17)
[2019-03-29] MEDS: FENOFIBRATE NANOCRYSTALLIZED 145 MG TABLET PO SCH (10:18)
[2019-03-29] MEDS: FLUOXETINE HCL 20 MG CAPSULE PO SCH (10:19)
[2019-03-29] MEDS: FAMOTIDINE 20 MG TABLET PO SCH ×2 (10:19→22:30)
[2019-03-29] MEDS: ENOXAPARIN SODIUM INJ 30 MG/0.3 ML DISP.SYRIN SUBCUT SCH (10:48)
[2019-03-29] MEDS: ASPIRIN 81 MG TABLET, ENT COATED PO SCH (22:30)
[2019-03-30] MEDS: ZIPRASIDONE MESYLATE INJ/PF 20 MG SDV IM PRN ×2 (00:05→18:21)
[2019-03-30] MEDS: LORAZEPAM INJ 2 MG/1 ML VIAL IV PRN ×3 (02:36→22:31)
[2019-03-30 04:20] LABS: ABSOLUTE BASOPHILS # (AUTO) 0.1 10^3/uL (0.0-0.2); ABSOLUTE EOSINOPHILS # (AUTO) 0.2 10^3/uL (0.0-0.6); ABSOLUTE LYMPHOCYTES (AUTO) 1.7 10^3/uL (0.5-4.7); ABSOLUTE MONOCYTES (AUTO) 0.5 10^3/uL (0.1-1.4); ABSOLUTE NEUT (AUTO) 5.9 10^3/uL (1.7-8.2); EOSINOPHILS % (AUTO) 1.9 % (0-6); HEMATOCRIT 33.3 % (37.9-51.0); HEMOGLOBIN 11.4 g/dL (13.5-17.0); LYMPHOCYTES % (AUTO) 20.3 % (13-45); MEAN CORPUSCULAR HEMOGLOBIN 30.1 pg (27.0-33.4); MEAN CORPUSCULAR HGB CONC 34.2 g/dL (32.0-36.0); MEAN CORPUSCULAR VOLUME 88 fl (80-97); MONOCYTES % (AUTO) 6.3 % (3-13); PLATELET COUNT 320 10^3/uL (150-450); RED BLOOD COUNT 3.77 10^6/uL (4.35-5.55); RED CELL DISTRIBUTION WIDTH 13.5 % (11.5-14.0); SEGMENTED NEUTROPHILS % (AUTO) 70.5 % (42-78); TOTAL CELLS COUNTED % (AUTO) 100 %; WHITE BLOOD COUNT 8.4 10^3/uL (4.0-10.5)
[2019-03-30 04:23] LABS: ALBUMIN 3.9 g/dL (3.5-5.0); ALKALINE PHOSPHATASE 40 U/L (38-126); ANION GAP 12 (5-19); ASPARTATE AMINO TRANSFERASE 30 U/L (17-59); BILIRUBIN,DIRECT 0.4 mg/dL (0.0-0.4); BILIRUBIN,TOTAL 0.7 mg/dL (0.2-1.3); BLOOD UREA NITROGEN 20 mg/dL (7-20); CALCIUM 9.4 mg/dL (8.4-10.2); CARBON DIOXIDE 16 mmol/L (22-30); CHLORIDE 114 mmol/L (98-107); GLUCOSE 72 mg/dL (75-110); POTASSIUM 3.5 mmol/L (3.6-5.0); TOTAL PROTEIN 7.2 g/dL (6.3-8.2)
[2019-03-30] MEDS: NORMAL SALINE 1000 ML 1,000 ML IV PRN ×3 (06:13→19:54)
--- NOTE | 2019-03-30 09:26 | PDOC PROGRESS REPORT ---
Subjective Progress Note for:: 03/30/19 Subjective:: March 29, 2019-patient is confused will not answer questions at this time. Remains in four-point restraints March 30, 2019-patient remains confused only oriented to self. Only in two- point restraints at this time Reason For Visit: ALTERED MENTAL STATUS,ATAXIA, CVA HYPERTENSION Physical Exam Vital Signs: Temp Pulse Resp BP Pulse Ox 98.2 F 101 H 19 139/80 H 99 03/30/19 08:01 03/30/19 08:00 03/30/19 08:01 03/30/19 08:01 03/30/19 08:01 Intake & Output 03/29/19 03/30/19 03/31/19 06:59 06:59 06:59 Intake Total 2360 3000 Output Total 515 1930 175 Balance 1845 1070 -175 Weight 66.9 kg 67.9 kg General appearance: PRESENT: no acute distress, well-developed, well-nourished Neck exam: ABSENT: carotid bruit, JVD, lymphadenopathy, thyromegaly Respiratory exam: PRESENT: clear to auscultation jackie. ABSENT: rales, rhonchi, wheezes Cardiovascular exam: PRESENT: RRR. ABSENT: diastolic murmur, rubs, systolic murmur Pulses: PRESENT: normal carotid pulses Vascular exam: PRESENT: normal capillary refill GI/Abdominal exam: PRESENT: normal bowel sounds, soft. ABSENT: distended, guarding, mass, organolmegaly, rebound, tenderness Extremities exam: PRESENT: full ROM. ABSENT: calf tenderness, clubbing, pedal edema Neurological exam: PRESENT: alert, awake, oriented to person Psychiatric exam: PRESENT: other - Unable to assess as patient is confused at this time Skin exam: PRESENT: dry, intact, warm. ABSENT: cyanosis, rash Results Laboratory Results: 03/30/19 03:30 03/30/19 03:30 03/29/19 03/29/19 03/30/19 03:23 03:23 03:30 WBC 8.4 RBC 3.77 L Hgb 11.4 L Hct 33.3 L MCV 88 MCH 30.1 MCHC 34.2 RDW 13.5 Plt Count 320 Seg Neutrophils % 70.5 Sodium Potassium Chloride Carbon Dioxide Anion Gap BUN Creatinine Est GFR ( Amer) Glucose Calcium Magnesium Total Bilirubin AST Alkaline Phosphatase Total Protein Albumin Vitamin B12 957.0 H Free T4 1.19 03/30/19 03:30 WBC RBC Hgb Hct MCV MCH MCHC RDW Plt Count Seg Neutrophils % Sodium 142.1 Potassium 3.5 L Chloride 114 H Carbon Dioxide 16 L Anion Gap 12 BUN 20 Creatinine 1.30 H Est GFR ( Amer) > 60 Glucose 72 L Calcium 9.4 Magnesium 1.6 Total Bilirubin 0.7 AST 30 Alkaline Phosphatase 40 Total Protein 7.2 Albumin 3.9 Vitamin B12 Free T4 03/27/19 03/27/19 16:32 16:32 Creatine Kinase 54 L CK-MB (CK-2) < 0.22 Impressions: Brain MRI with MRA 03/27/19 00:00 IMPRESSION: Diminutive appearance of right vertebral artery, incompletely assessed. Otherwise no significant vascular abnormalities CAROTID STENOSIS REFERENCE USING NASCET CRITERIA: % ICA stenosis = (1 - narrowest ICA diameter/diameter of distal cervical ICA) x 100. Mild - <50% stenosis. Moderate - 50-69% stenosis. Severe - 70-94% stenosis. Near occlusion - 95-99% stenosis. Occluded - 100% stenosis. Head MRI 03/27/19 00:00 IMPRESSION: No acute intracranial findings. Head CT 03/27/19 16:05 IMPRESSION: MILD CHRONIC CHANGES OF ATROPHY AND MICROVASCULAR ISCHEMIA. NO ACUTE PROCESS. EVIDENCE OF ACUTE STROKE: NO. Assessment and Plan - Diagnosis (1) CVA (cerebral vascular accident) Is this a current diagnosis for this admission?: Yes Plan: Patient has CVA 6 years ago and was actually admitted here at [facility]. This left him with a residual left lower extremity weakness some speech dysarthria. According to the sister in the last day or 2 he is seemed weaker than normal and more confused. According to a coworker it is been going on about a week now She emphatically denies any drugs no marijuana no alcohol, no illegal substances. Patient does admit to smoking about 10 cigarettes/day. 03/28/2019 MRI, MRA, CT of the head show no acute findings. patient is neurologically stable today, patient states he feels less confused as well as stronger 03/29/2019-MRI and CAT scan of the brain shows no acute findings. Patient remains confused after becoming extremely violent yesterday and had to be put in four-point restraints. Also getting 1 mg of Ativan every 4 hours. Stable from a CVA standpoint 03/30/2019-continue to follow patient. Patient less violent and able to answer his to his name at this time. He continues with two-point restraints and Ativan as needed. (2) Acute renal failure Qualifiers: Acute renal failure type: unspecified Qualified Code(s): N17.9 - Acute kidney failure, unspecified Is this a current diagnosis for this admission?: Yes Plan: Patient's BUN is 51 creatinine 3.61 GFR 17. CK is 5413 8.7 sodium 140 potassium 3.5 as far as by history I can find no previous functions although I will search the records. Patient and his sister do not admit to him having any kind of kidney disease. 03-28-19 BUN today is come down to 48 creatinine is come down to 2.39. We will continue IV fluids rehydrate. 03/29/2019-continues to improve creatinine today 1.64. We will continue hydration continue to follow with daily BMPs. 03/30/2019-creatinine down to 1.3 today. We will continue fluids until resolution of renal failure. (3) Dehydration Is this a current diagnosis for this admission?: Yes Plan: Patient electrolytes BUN and creatinine indicate dehydration acute renal injury 03/28/2019 his renal functions have improved with IV fluids. He is currently getting normal saline at 150 an hour this was started last night.. 03/29/2019-continues to show improvement continue IV fluids 03/30/2019-continues to improve. Continue IV fluids (4) Acute delirium Is this a current diagnosis for this admission?: Yes Plan: 03/29/2019-patient became acutely confused combative trying to hurt himself and others yesterday. He was placed in four-point restraints and was given IV Ativan and Geodon for agitation. At this time patient is laying in bed still in four-point restraints confused unable to answer questions. Patient was awoke around 4:00 and was thrashing and received more Ativan. I am unsure of the etiology of this event. Patient does have a decreased TSH I will obtain a T4 and add medications as appropriate, I will check for heavy metals, HIV, and as he has an elevated total protein we will check a serum protein electrophoresis for multiple myeloma. 03/30/2019-patient out of four-point with needs at this time he is in two-point. Still confused unknown etiology. Patient does have subclinical hyperthyroidism for which I am giving him methimazole 2.5 mg p.o. daily until patient has a new cirrhotic level. Patient continues with Ativan as needed we are awaiting heavy metals and other testing to determine etiology of confusion. (5) Hyperthyroidism Is this a current diagnosis for this admission?: Yes Plan: 03/29/2019-patient does have a depressed TSH of 0.46 we will obtain a T4 and add appropriate medications. 03/30/2019-T4 normal. Subclinical hyperthyroidism. I will treat him with methimazole 2.5 mill grams p.o. daily monitor for a normal TSH levels - Time Time Spent with patient: 15-24 minutes - Inpatient Certification Based on my medical assessment, after consideration of the patient's comorbidities, presenting symptoms, or acuity I expect that the services needed warrant INPATIENT care.: Yes I certify that my determination is in accordance with my understanding of Medicare's requirements for reasonable and necessary INPATIENT services [42 CFR 412.3e].: Yes Medical Necessity: Other - IV fluids, monitor for safety
[2019-03-30] MEDS ORDERED: POTASSIUM CHLORIDE 10 MEQ CAPSULE.ER PO ONE (09:30)
[2019-03-30] MEDS ORDERED: ONDANSETRON HCL INJ/PF 4 MG/2 ML SDV IV PRN (09:30)
[2019-03-30] MEDS: FAMOTIDINE 20 MG TABLET PO SCH ×2 (10:47→21:28)
[2019-03-30] MEDS: DOCUSATE SODIUM 100 MG CAPSULE PO SCH (10:47)
[2019-03-30] MEDS: FLUOXETINE HCL 20 MG CAPSULE PO SCH (10:48)
[2019-03-30] MEDS: FENOFIBRATE NANOCRYSTALLIZED 145 MG TABLET PO SCH (10:50)
[2019-03-30] MEDS: METHIMAZOLE 5 MG TABLET PO SCH (10:50)
[2019-03-30] MEDS: ENOXAPARIN SODIUM INJ 40 MG/0.4 ML DISP.SYRIN SUBCUT SCH (11:00)
[2019-03-30] MEDS: AMLODIPINE BESYLATE 10 MG TABLET PO SCH (11:00)
[2019-03-30] MEDS ORDERED: POTASSI CL 20 MEQ/50 ML RIDER 20 MEQ/50 ML RTUPB IV ONE (11:30)
--- NOTE | 2019-03-30 14:34 | RADIOLOGY REPORT (SQ) ---
EXAM DESCRIPTION: CAROTID DOPPLER COMPLETED DATE/TIME: 03/30/2019 2:11 pm REASON FOR STUDY: ataxia COMPARISON: CT brain 08/28/2009, 03/27/2019 MRI brain/MRA exam [place] 08/29/2009, 03/27/2019 MRA exam carotid bifurcations 08/29/2009 TECHNIQUE: Grayscale ultrasound, Doppler velocity and spectra, and color Doppler images acquired of the extra-cranial carotid and vertebral arteries. Images stored on PACS. LIMITATIONS: None. FINDINGS: RIGHT CAROTID CCA Velocities: Within normal limits. Right common carotid artery peak systolic velocity 1.3 m/sec ICA Velocities Peak systolic 1.3 m/s. End diastolic 0.3 m/s. Proximal ICA/CCA peak systolic ratio 1.7. Mixed calcific and noncalcific plaque at the right carotid bifurcation without flow significant steno sis by velocity criteria LEFT CAROTID CCA Velocities: Within normal limits. Left common carotid artery peak systolic velocity 0.84 m/sec ICA Velocities Peak systolic 0.74 m/s. End diastolic 0.20 m/s. Proximal ICA/CCA peak systolic ratio 1.0. Mixed calcific and noncalcific plaque at the left carotid bifurcation without flow significant stenos is by velocity criteria. VERTEBRAL ARTERIES: Antegrade flow. Normal waveforms. Left vertebral artery is dominant, an anatomi c variant SUBCLAVIAN ARTERIES: Not evaluated OTHER: No other significant finding. IMPRESSION: 50 to 69% diameter narrowing by velocity criteria right proximal ICA No flow significant stenosis left carotid bifurcation Antegrade pulsatile vertebral artery flow bilaterally, left vertebral artery is dominant COMMENT: Quality ID #[id number]: Velocity criteria are extrapolated from the diameter data as defined by t he Society of Radiologists in Ultrasound Consensus Conference. Radiology 2003: 229; 340-346. TECHNICAL DOCUMENTATION: JOB ID: [id number] [employer]- All Rights Reserved Reading location - IP/workstation name: [email or web address]
[2019-03-30] MEDS: ASPIRIN 81 MG TABLET, ENT COATED PO SCH (21:28)
[2019-03-31 04:04] LABS: HEMATOCRIT 33.7 % (37.9-51.0); HEMOGLOBIN 11.6 g/dL (13.5-17.0); MEAN CORPUSCULAR HEMOGLOBIN 30.3 pg (27.0-33.4); MEAN CORPUSCULAR HGB CONC 34.3 g/dL (32.0-36.0); MEAN CORPUSCULAR VOLUME 88 fl (80-97); PLATELET COUNT 305 10^3/uL (150-450); RED BLOOD COUNT 3.82 10^6/uL (4.35-5.55); RED CELL DISTRIBUTION WIDTH 13.7 % (11.5-14.0); WHITE BLOOD COUNT 9.7 10^3/uL (4.0-10.5)
[2019-03-31 04:23] LABS: ALBUMIN 3.8 g/dL (3.5-5.0); ALKALINE PHOSPHATASE 40 U/L (38-126); ANION GAP 11 (5-19); ASPARTATE AMINO TRANSFERASE 32 U/L (17-59); BILIRUBIN,DIRECT 0.5 mg/dL (0.0-0.4); BILIRUBIN,TOTAL 0.7 mg/dL (0.2-1.3); BLOOD UREA NITROGEN 13 mg/dL (7-20); CALCIUM 9.1 mg/dL (8.4-10.2); CARBON DIOXIDE 16 mmol/L (22-30); CHLORIDE 116 mmol/L (98-107); GLUCOSE 78 mg/dL (75-110); POTASSIUM 3.9 mmol/L (3.6-5.0); TOTAL PROTEIN 7.3 g/dL (6.3-8.2)
[2019-03-31] MEDS: DOCUSATE SODIUM 100 MG CAPSULE PO SCH (09:25)
[2019-03-31] MEDS: FENOFIBRATE NANOCRYSTALLIZED 145 MG TABLET PO SCH (09:25)
[2019-03-31] MEDS: AMLODIPINE BESYLATE 10 MG TABLET PO SCH (09:25)
[2019-03-31] MEDS: METHIMAZOLE 5 MG TABLET PO SCH (09:25)
[2019-03-31] MEDS: FAMOTIDINE 20 MG TABLET PO SCH ×2 (09:25→21:25)
[2019-03-31] MEDS: FLUOXETINE HCL 20 MG CAPSULE PO SCH (09:25)
[2019-03-31] MEDS: NORMAL SALINE 1000 ML 1,000 ML IV PRN ×3 (09:26→23:00)
[2019-03-31] MEDS: ENOXAPARIN SODIUM INJ 40 MG/0.4 ML DISP.SYRIN SUBCUT SCH (09:28)
--- NOTE | 2019-03-31 15:58 | PDOC PROGRESS REPORT ---
Subjective Progress Note for:: 03/31/19 Subjective:: This is a 58 yr old male with a PMH of CVA wiht leg leg residual weakness who presented with lightheadedness and confusion. He was noted to be in acute renal failure as well upon admission. He was also combative and required violent 4 point restraints and hence was admitted to the ICU. His mentation did improve. Reportedly, he has had episodes of violent outbursts at home before. No acute event overnight. Upon encounter, patient is not in distress and appears calm. He is just on soft restraints now. He does not appear to be agitated. He is oriented to person and says he is in [place] He denies any chest pain or shortness of breath but is not very conversant at this time. Reason For Visit: ALTERED MENTAL STATUS,ATAXIA, CVA HYPERTENSION Physical Exam Vital Signs: Temp Pulse Resp BP Pulse Ox 98.4 F 90 18 138/77 H 98 03/31/19 10:01 03/31/19 07:56 03/31/19 10:01 03/31/19 10:00 03/31/19 10:01 Intake & Output 03/30/19 03/31/19 04/01/19 06:59 06:59 06:59 Intake Total 3000 3000 Output Total 1930 1150 Balance 1070 1850 Weight 149 lb 11.102 oz 151 lb 3.794 oz General appearance: PRESENT: no acute distress, well-developed, well-nourished Head exam: PRESENT: atraumatic, normocephalic Eye exam: PRESENT: conjunctiva pink, EOMI, PERRLA. ABSENT: scleral icterus Ear exam: PRESENT: normal external ear exam Mouth exam: PRESENT: moist, tongue midline Neck exam: ABSENT: carotid bruit, JVD, lymphadenopathy, thyromegaly Respiratory exam: PRESENT: clear to auscultation jackie. ABSENT: rales, rhonchi, wheezes Cardiovascular exam: PRESENT: RRR. ABSENT: diastolic murmur, rubs, systolic murmur Pulses: PRESENT: normal dorsalis pedis pul GI/Abdominal exam: PRESENT: normal bowel sounds, soft. ABSENT: distended, guarding, mass, organolmegaly, rebound, tenderness Rectal exam: PRESENT: deferred Neurological exam: PRESENT: alert, awake, oriented to person, oriented to place, oriented to time, oriented to situation, CN II-XII grossly intact, motor sensory deficit - chronic [employer] Results Laboratory Results: 03/31/19 03:54 03/31/19 03:54 03/31/19 03/31/19 03:54 03:54 WBC 9.7 RBC 3.82 L Hgb 11.6 L Hct 33.7 L MCV 88 MCH 30.3 MCHC 34.3 RDW 13.7 Plt Count 305 Sodium 143.4 Potassium 3.9 Chloride 116 H Carbon Dioxide 16 L Anion Gap 11 BUN 13 Creatinine 1.13 Est GFR ( Amer) > 60 Glucose 78 Calcium 9.1 Total Bilirubin 0.7 AST 32 Alkaline Phosphatase 40 Total Protein 7.3 Albumin 3.8 03/27/19 03/27/19 16:32 16:32 Creatine Kinase 54 L CK-MB (CK-2) < 0.22 Impressions: Brain MRI with MRA 03/27/19 00:00 IMPRESSION: Diminutive appearance of right vertebral artery, incompletely assessed. Otherwise no significant vascular abnormalities CAROTID STENOSIS REFERENCE USING NASCET CRITERIA: % ICA stenosis = (1 - narrowest ICA diameter/diameter of distal cervical ICA) x 100. Mild - <50% stenosis. Moderate - 50-69% stenosis. Severe - 70-94% stenosis. Near occlusion - 95-99% stenosis. Occluded - 100% stenosis. Head MRI 03/27/19 00:00 IMPRESSION: No acute intracranial findings. Head CT 03/27/19 16:05 IMPRESSION: MILD CHRONIC CHANGES OF ATROPHY AND MICROVASCULAR ISCHEMIA. NO ACUTE PROCESS. EVIDENCE OF ACUTE STROKE: NO. Carotid Doppler Study 03/30/19 00:00 IMPRESSION: 50 to 69% diameter narrowing by velocity criteria right proximal ICA No flow significant stenosis left carotid bifurcation Antegrade pulsatile vertebral artery flow bilaterally, left vertebral artery is dominant Assessment and Plan - Diagnosis (1) Acute delirium Is this a current diagnosis for this admission?: Yes Plan: Patient initially became combative and required 4 point restraints. Appears this has improved and he has been more calm and cooperative. Acute renal failure may have contributed to the encephalopathy but reportedly patient had prior outbursts of agitation at home. Will consult psych for further recommendations. (2) Acute renal failure Qualifiers: Acute renal failure type: unspecified Qualified Code(s): N17.9 - Acute kidney failure, unspecified Is this a current diagnosis for this admission?: Yes Plan: Resolved with IV fluids. (3) Dehydration Is this a current diagnosis for this admission?: Yes Plan: Continue IV fluids. - Time Time Spent with patient: 25-34 minutes
--- NOTE | 2019-03-31 17:31 | PSYCHOLOGICAL NOTE ---
Psych Note - Psych Note Date seen by psych provider: 03/31/19 Time seen by psych provider: 15:29 - Chart review at 1529. Psych Note: Presenting Problem: Psychosis. Patient presented to the ED 03/27/19 after friend was concerned for episodes of sitting/stand up/saw different colored lights/felt lightheaded/last 10 minutes over last couple days. he has a stroke history (6 years ago, left lower extremity weakness). He was same day admit to hospitalist services for CVA, ARF and dehydration. Also noted were concerns for lightheadedness, ataxia, shaky and elevated creatinine. Head CT and MRI dated 03/27/19 had language consistent with neurodegenerative processes and old lacunar infarct left fer. He arrived able to answer questions but did not know year. On 03/29/19 documentation noted patient was confused , not answering questions and became combative evening time which required mediation and 4 point restraints for safety. 03/30/19 documentation not confusion, oriented to self only and in 2 point restraints. He had continued stay criteria on 03/30/19 for CVA, ARF, Dehydration, Acute Delirium and Hyperthyroidism. Home psychiatric medication was Prozac 40MG QD. Psychiatric related medications being administered in the hospital included Prozac 40MG QD, Ativan 1MG IV Q4H PRN (last administered 03/30/19 at 2231) and Geodon 20MG IM Q8H PRN (last administered 03/30/19 at 1821). Diagnosis: Psychosis Medication recommendations made by the psychiatric medical provider, Dr. Ariel MD., includes: Discontinue Geodon 20MG IM Q8H PRN Discontinue Ativan 1MG IV Q4H PRN Discontinue Prozac 40MG QD Add Depakote DR 250MG twice a day for mood stabilization Add Risperdal 0.25MG Q8Am and Q4PM Impression/Plan: Chart review only. Provided medication recommendation that would address mood and psychosis while also taking into consideration head MRI and CT language consistent with neurodegenerative processes (patient does have Hx of Stroke). Patient's issues do not seem to be psychiatric but rather medical in nature. Consulted with Dr. Christiansen regarding the management and care of patient. Attending Hospitalist made aware of chart review and recommendations.
[2019-03-31 17:36] LABS: A/G RATIO. 1.2 (0.7-1.7); ALBUMIN 3 3.4 g/dL (2.9-4.4); ALPHA-1-GLOBULIN 0.2 g/dL (0.0-0.4); BETA GLOBULIN 0.9 g/dL (0.7-1.3); GAMMA GLOBULINS 1.3 g/dL (0.4-1.8); IMMUNOGLOBULIN A 134 mg/dL (90-386); IMMUNOGLOBULIN G 1489 mg/dL (700-1600); IMMUNOGLOBULIN M 26 mg/dL (20-172); MONOCLONAL-SPIKE 1.1 g/dL (Not Observ); PROTEIN TOTAL SERUM 6.4 g/dL (6.0-8.5)
[2019-03-31] MEDS: RISPERIDONE 0.25 MG TABLET PO SCH (19:26)
[2019-03-31] MEDS: ASPIRIN 81 MG TABLET, ENT COATED PO SCH (21:25)
[2019-03-31] MEDS: DIVALPROEX SODIUM 250 MG TAB.SR.24H PO SCH (21:25)
[2019-04-01] MEDS: NORMAL SALINE 1000 ML 1,000 ML IV PRN ×2 (05:48→12:20)
[2019-04-01 07:44] LABS: LEAD None Detected ug/dL (0-4); MERCURY WHOLE BLD None Detected ug/L (0.0-14.9)
[2019-04-01] MEDS: DOCUSATE SODIUM 100 MG CAPSULE PO SCH (09:39)
[2019-04-01] MEDS: RISPERIDONE 0.25 MG TABLET PO SCH ×2 (09:39→18:00)
[2019-04-01] MEDS: FENOFIBRATE NANOCRYSTALLIZED 145 MG TABLET PO SCH (09:39)
[2019-04-01] MEDS: AMLODIPINE BESYLATE 10 MG TABLET PO SCH (09:39)
[2019-04-01] MEDS: FAMOTIDINE 20 MG TABLET PO SCH ×2 (09:41→21:23)
[2019-04-01] MEDS: DIVALPROEX SODIUM 250 MG TAB.SR.24H PO SCH ×2 (09:42→21:23)
[2019-04-01] MEDS: ENOXAPARIN SODIUM INJ 40 MG/0.4 ML DISP.SYRIN SUBCUT SCH (09:45)
--- NOTE | 2019-04-01 17:19 | PDOC PROGRESS REPORT ---
Subjective Progress Note for:: 04/01/19 Subjective:: This is a 58 yr old male with a PMH of CVA wiht leg leg residual weakness who presented with lightheadedness and confusion. He was noted to be in acute renal failure as well upon admission. He was also combative and required violent 4 point restraints and hence was admitted to the ICU. His mentation did improve. Reportedly, he has had episodes of violent outbursts at home before. 03/31: Upon encounter, patient is not in distress and appears calm. He is just on soft restraints now. He does not appear to be agitated. He is oriented to person and says he is in [place] He denies any chest pain or shortness of breath but is not very conversant at this time. 04/01: No acute event overnight. He appears more alert and responsive today. He is only oriented to person. Upon further problem pain and encouraging, he becomes more conversant. He denies suicidal or homicidal ideations. He does nod yes when asked if he is depressed. He denies hallucinations or delusions. On further encouragement, he eventually agreed to cooperate with speech therapist and passed his swallow evaluation. He has been calm and has not been agitated in the past 48 hours. He has been restrained free to whole day. Reason For Visit: ALTERED MENTAL STATUS,ATAXIA, CVA HYPERTENSION Physical Exam Vital Signs: Temp Pulse Resp BP Pulse Ox 100.7 F H 101 H 23 H 149/92 H 99 04/01/19 16:00 04/01/19 16:00 04/01/19 16:00 04/01/19 16:00 04/01/19 16:00 Intake & Output 03/31/19 04/01/19 04/02/19 06:59 06:59 06:59 Intake Total 3000 2975 980 Output Total 1150 925 850 Balance 1850 2050 130 Weight 151 lb 3.794 oz 152 lb 8.958 oz General appearance: PRESENT: no acute distress, well-developed, well-nourished Head exam: PRESENT: atraumatic, normocephalic Eye exam: PRESENT: conjunctiva pink, EOMI, PERRLA. ABSENT: scleral icterus Ear exam: PRESENT: normal external ear exam Mouth exam: PRESENT: moist, tongue midline Neck exam: ABSENT: carotid bruit, JVD, lymphadenopathy, thyromegaly Respiratory exam: PRESENT: clear to auscultation jackie. ABSENT: rales, rhonchi, wheezes Cardiovascular exam: PRESENT: RRR. ABSENT: diastolic murmur, rubs, systolic m urmur Pulses: PRESENT: normal dorsalis pedis pul GI/Abdominal exam: PRESENT: normal bowel sounds, soft. ABSENT: distended, guarding, mass, organolmegaly, rebound, tenderness Rectal exam: PRESENT: deferred Neurological exam: PRESENT: alert, awake, oriented to person Psychiatric exam: PRESENT: depressed. ABSENT: suicidal ideation Focused psych exam: ABSENT: delusional Results Laboratory Results: 03/31/19 03:54 03/31/19 03:54 03/29/19 03/31/19 03:23 18:07 Total Protein 6.4 Free T3 pg/mL 2.98 03/27/19 03/27/19 16:32 16:32 Creatine Kinase 54 L CK-MB (CK-2) < 0.22 Impressions: Brain MRI with MRA 03/27/19 00:00 IMPRESSION: Diminutive appearance of right vertebral artery, incompletely assessed. Otherwise no significant vascular abnormalities CAROTID STENOSIS REFERENCE USING NASCET CRITERIA: % ICA stenosis = (1 - narrowest ICA diameter/diameter of distal cervical ICA) x 100. Mild - <50% stenosis. Moderate - 50-69% stenosis. Severe - 70-94% stenosis. Near occlusion - 95-99% stenosis. Occluded - 100% stenosis. Head MRI 03/27/19 00:00 IMPRESSION: No acute intracranial findings. Head CT 03/27/19 16:05 IMPRESSION: MILD CHRONIC CHANGES OF ATROPHY AND MICROVASCULAR ISCHEMIA. NO ACUTE PROCESS. EVIDENCE OF ACUTE STROKE: NO. Carotid Doppler Study 03/30/19 00:00 IMPRESSION: 50 to 69% diameter narrowing by velocity criteria right proximal ICA No flow significant stenosis left carotid bifurcation Antegrade pulsatile vertebral artery flow bilaterally, left vertebral artery is dominant Assessment and Plan - Diagnosis (1) Acute delirium Is this a current diagnosis for this admission?: Yes Plan: Patient initially became combative and required 4 point restraints. Appears this has improved and he has been more calm and cooperative. Acute renal failure may have contributed to the encephalopathy but reportedly patient had prior outbursts of agitation at home. Will consult psych for further recommendations. 04/01: Appreciate psych recs. Medication recommendations reconciled. (2) Acute renal failure Qualifiers: Acute renal failure type: unspecified Qualified Code(s): N17.9 - Acute kidney failure, unspecified Is this a current diagnosis for this admission?: Yes Plan: Resolved with IV fluids. (3) Dehydration Is this a current diagnosis for this admission?: Yes Plan: He is now eating well. DC IV fluids. - Time Time Spent with patient: 25-34 minutes
[2019-04-01] MEDS: ASPIRIN 81 MG TABLET, ENT COATED PO SCH (21:23)
[2019-04-02] MEDS: ENOXAPARIN SODIUM INJ 40 MG/0.4 ML DISP.SYRIN SUBCUT SCH (09:19)
[2019-04-02] MEDS: FENOFIBRATE NANOCRYSTALLIZED 145 MG TABLET PO SCH (09:19)
[2019-04-02] MEDS: DOCUSATE SODIUM 100 MG CAPSULE PO SCH (09:19)
[2019-04-02] MEDS: FAMOTIDINE 20 MG TABLET PO SCH ×2 (09:19→21:32)
[2019-04-02] MEDS: AMLODIPINE BESYLATE 10 MG TABLET PO SCH (09:31)
[2019-04-02] MEDS: DIVALPROEX SODIUM 250 MG TAB.SR.24H PO SCH ×2 (09:31→21:32)
[2019-04-02] MEDS: RISPERIDONE 0.25 MG TABLET PO SCH ×2 (09:31→17:11)
[2019-04-02] MEDS ORDERED: POLYETHYLENE GLYCOL 3350 POWDER 17 GM/1 PACKET PO PRN (09:53)
--- NOTE | 2019-04-02 14:54 | PDOC PROGRESS REPORT ---
Subjective Progress Note for:: 04/02/19 Subjective:: This is a 58 yr old male with a PMH of CVA wiht leg leg residual weakness who presented with lightheadedness and confusion. He was noted to be in acute renal failure as well upon admission. He was also combative and required violent 4 point restraints and hence was admitted to the ICU. His mentation did improve. Reportedly, he has had episodes of violent outbursts at home before. 03/31: Upon encounter, patient is not in distress and appears calm. He is just on soft restraints now. He does not appear to be agitated. He is oriented to person and says he is in [place] He denies any chest pain or shortness of breath but is not very conversant at this time. 04/01: He appears more alert and responsive today. He is only oriented to person. Upon further problem pain and encouraging, he becomes more conversant. He denies suicidal or homicidal ideations. He does nod yes when asked if he is depressed. He denies hallucinations or delusions. On further encouragement, he eventually agreed to cooperate with speech therapist and passed his swallow evaluation. He has been calm and has not been agitated in the past 48 hours. He has been restraint-free to whole day. 04/02: No acute event overnight. No episode of agitation or combativeness. He continues to be more conversant today but he is not well-oriented yet. He denies acute complaints. Reason For Visit: ALTERED MENTAL STATUS,ATAXIA, CVA HYPERTENSION Physical Exam Vital Signs: Temp Pulse Resp BP Pulse Ox 98.2 F 88 16 129/73 H 99 04/02/19 11:21 04/02/19 11:21 04/02/19 08:00 04/02/19 11:21 04/02/19 11:21 Intake & Output 04/01/19 04/02/19 04/03/19 06:59 06:59 06:59 Intake Total 2975 1180 Output Total 925 850 Balance 2049 330 Weight 152 lb 8.958 oz 149 lb 0.52 oz General appearance: PRESENT: no acute distress, well-developed, well-nourished Head exam: PRESENT: atraumatic, normocephalic Eye exam: PRESENT: conjunctiva pink, EOMI, PERRLA. ABSENT: scleral icterus Ear exam: PRESENT: normal external ear exam Mouth exam: PRESENT: moist, tongue midline Neck exam: ABSENT: carotid bruit, JVD, lymphadenopathy, thyromegaly Respiratory exam: PRESENT: clear to auscultation jackie. ABSENT: rales, rhonchi, wheezes Cardiovascular exam: PRESENT: RRR. ABSENT: diastolic murmur, rubs, systolic murmur Pulses: PRESENT: normal dorsalis pedis pul GI/Abdominal exam: PRESENT: normal bowel sounds, soft. ABSENT: distended, guarding, mass, organolmegaly, rebound, tenderness Rectal exam: PRESENT: deferred Neurological exam: PRESENT: alert, awake, oriented to person, CN II-XII grossly intact. ABSENT: motor sensory deficit Results Laboratory Results: 03/31/19 03:54 03/31/19 03:54 03/27/19 03/27/19 16:32 16:32 Creatine Kinase 54 L CK-MB (CK-2) < 0.22 Impressions: Brain MRI with MRA 03/27/19 00:00 IMPRESSION: Diminutive appearance of right vertebral artery, incompletely assessed. Otherwise no significant vascular abnormalities CAROTID STENOSIS REFERENCE USING NASCET CRITERIA: % ICA stenosis = (1 - narrowest ICA diameter/diameter of distal cervical ICA) x 100. Mild - <50% stenosis. Moderate - 50-69% stenosis. Severe - 70-94% stenosis. Near occlusion - 95-99% stenosis. Occluded - 100% stenosis. Head MRI 03/27/19 00:00 IMPRESSION: No acute intracranial findings. Head CT 03/27/19 16:05 IMPRESSION: MILD CHRONIC CHANGES OF ATROPHY AND MICROVASCULAR ISCHEMIA. NO ACUTE PROCESS. EVIDENCE OF ACUTE STROKE: NO. Carotid Doppler Study 03/30/19 00:00 IMPRESSION: 50 to 69% diameter narrowing by velocity criteria right proximal ICA No flow significant stenosis left carotid bifurcation Antegrade pulsatile vertebral artery flow bilaterally, left vertebral artery is dominant Assessment and Plan - Diagnosis (1) Acute delirium Is this a current diagnosis for this admission?: Yes Plan: Patient initially became combative and required 4 point restraints. Appears this has improved and he has been more calm and cooperative. Acute renal failure may have contributed to the encephalopathy but reportedly patient had prior outbursts of agitation at home. Will consult psych for further recommendations. 04/01: Appreciate psych recs. Medication recommendations reconciled. 04/02: Resolving. (2) Acute renal failure Qualifiers: Acute renal failure type: unspecified Qualified Code(s): N17.9 - Acute kidney failure, unspecified Is this a current diagnosis for this admission?: Yes Plan: Resolved with IV fluids. (3) Dehydration Is this a current diagnosis for this admission?: Yes Plan: He is now eating well. DC IV fluids. - Time Time Spent with patient: 25-34 minutes
[2019-04-02] MEDS ORDERED: HALOPERIDOL LACTATE INJ 5 MG/1 ML VIAL ONE ×2 (18:50→20:26)
[2019-04-02] MEDS ORDERED: HALOPERIDOL LACTATE INJ 5 MG/1 ML VIAL IV ONE ×2 (19:15→21:00)
[2019-04-02] MEDS ORDERED: LORAZEPAM INJ 2 MG/1 ML VIAL ONE ×2 (20:54→20:55)
[2019-04-02] MEDS ORDERED: NICOTINE 21 MG/24 HR PATCH.TD24 TD SCH (21:00)
[2019-04-02] MEDS: ASPIRIN 81 MG TABLET, ENT COATED PO SCH (21:32)
[2019-04-02] MEDS ORDERED: LORAZEPAM INJ 2 MG/1 ML VIAL IM ONE (21:45)
--- NOTE | 2019-04-03 11:07 | PDOC PROGRESS REPORT ---
Subjective Progress Note for:: 04/03/19 Subjective:: This is a 58 yr old male with a PMH of CVA wiht leg leg residual weakness who presented with lightheadedness and confusion. He was noted to be in acute renal failure as well upon admission. He was also combative and required violent 4 point restraints and hence was admitted to the ICU. His mentation did improve. Reportedly, he has had episodes of violent outbursts at home before. 03/31: Upon encounter, patient is not in distress and appears calm. He is just on soft restraints now. He does not appear to be agitated. He is oriented to person and says he is in [place] He denies any chest pain or shortness of breath but is not very conversant at this time. 04/01: He appears more alert and responsive today. He is only oriented to person. Upon further problem pain and encouraging, he becomes more conversant. He denies suicidal or homicidal ideations. He does nod yes when asked if he is depressed. He denies hallucinations or delusions. On further encouragement, he eventually agreed to cooperate with speech therapist and passed his swallow evaluation. He has been calm and has not been agitated in the past 48 hours. He has been restraint-free to whole day. 04/02: No acute event overnight. No episode of agitation or combativeness. He continues to be more conversant today but he is not well-oriented yet. He denies acute complaints. 04/03: Patient was apparently fine but developed acute agitation and combativeness last night. He does have prior episodes of outbursts of anger and agitation at home and had a few initial episodes during this hospital course as well. 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 Awaiting placement. Reason For Visit: ALTERED MENTAL STATUS,ATAXIA, CVA HYPERTENSION Physical Exam Vital Signs: Temp Pulse Resp BP Pulse Ox 97.6 F 59 L 16 128/69 H 93 04/03/19 08:34 04/03/19 08:34 04/03/19 08:34 04/03/19 08:34 04/03/19 08:34 Intake & Output 04/02/19 04/03/19 04/04/19 06:59 06:59 06:59 Intake Total 1180 620 Output Total 850 900 Balance 330 -280 Weight 149 lb 0.52 oz 148 lb 5.938 oz General appearance: PRESENT: no acute distress, well-developed, well-nourished Head exam: PRESENT: atraumatic, normocephalic Eye exam: PRESENT: conjunctiva pink, EOMI, PERRLA. ABSENT: scleral icterus Ear exam: PRESENT: normal external ear exam Mouth exam: PRESENT: moist, tongue midline Neck exam: ABSENT: carotid bruit, JVD, lymphadenopathy, thyromegaly Respiratory exam: PRESENT: clear to auscultation jackie. ABSENT: rales, rhonchi, wheezes Cardiovascular exam: PRESENT: RRR. ABSENT: diastolic murmur, rubs, systolic murmur Pulses: PRESENT: normal dorsalis pedis pul GI/Abdominal exam: PRESENT: normal bowel sounds, soft. ABSENT: distended, guarding, mass, organolmegaly, rebound, tenderness Rectal exam: PRESENT: deferred Neurological exam: PRESENT: other - sedated at the moment Results Laboratory Results: 03/31/19 03:54 03/31/19 03:54 03/27/19 03/27/19 16:32 16:32 Creatine Kinase 54 L CK-MB (CK-2) < 0.22 Impressions: Brain MRI with MRA 03/27/19 00:00 IMPRESSION: Diminutive appearance of right vertebral artery, incompletely assessed. Otherwise no significant vascular abnormalities CAROTID STENOSIS REFERENCE USING NASCET CRITERIA: % ICA stenosis = (1 - narrowest ICA diameter/diameter of distal cervical ICA) x 100. Mild - <50% stenosis. Moderate - 50-69% stenosis. Severe - 70-94% stenosis. Near occlusion - 95-99% stenosis. Occluded - 100% stenosis. Head MRI 03/27/19 00:00 IMPRESSION: No acute intracranial findings. Head CT 03/27/19 16:05 IMPRESSION: MILD CHRONIC CHANGES OF ATROPHY AND MICROVASCULAR ISCHEMIA. NO ACUTE PROCESS. EVIDENCE OF ACUTE STROKE: NO. Carotid Doppler Study 03/30/19 00:00 IMPRESSION: 50 to 69% diameter narrowing by velocity criteria right proximal ICA No flow significant stenosis left carotid bifurcation Antegrade pulsatile vertebral artery flow bilaterally, left vertebral artery is dominant Assessment and Plan - Diagnosis (1) Acute delirium Is this a current diagnosis for this admission?: Yes Plan: Patient initially became combative and required 4 point restraints. Appears this has improved and he has been more calm and cooperative. Acute renal failure may have contributed to the encephalopathy but reportedly patient had prior outbursts of agitation at home. Will consult psych for further recommendations. 04/01: Appreciate psych recs. Medication recommendations reconciled. 04/02: Resolving. 04/03: Patient was apparently fine but developed acute agitation and combativeness last night. He does have prior episodes of outbursts of anger and agitation at home and had a few initial episodes during this hospital course as well. He has episodic outbursts and waxing and waning agitation with lucid intervals in between. 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 Awaiting placement. (2) Acute renal failure Qualifiers: Acute renal failure type: unspecified Qualified Code(s): N17.9 - Acute kidney failure, unspecified Is this a current diagnosis for this admission?: Yes Plan: Resolved with IV fluids. (3) Dehydration Is this a current diagnosis for this admission?: Yes Plan: He is now eating well. DCed IV fluids. - Time Time Spent with patient: 25-34 minutes
[2019-04-03] MEDS: DOCUSATE SODIUM 100 MG CAPSULE PO SCH ×2 (11:39→13:42)
[2019-04-03 11:52] LABS: ABSOLUTE EOSINOPHILS # (AUTO) 0.4 10^3/uL (0.0-0.6); ABSOLUTE LYMPHOCYTES (AUTO) 1.9 10^3/uL (0.5-4.7); ABSOLUTE MONOCYTES (AUTO) 0.7 10^3/uL (0.1-1.4); ABSOLUTE NEUT (AUTO) 5.3 10^3/uL (1.7-8.2); BASOPHILS % (AUTO) 0.5 % (0-2); EOSINOPHILS % (AUTO) 4.2 % (0-6); HEMATOCRIT 30.2 % (37.9-51.0); HEMOGLOBIN 10.5 g/dL (13.5-17.0); LYMPHOCYTES % (AUTO) 23.2 % (13-45); MEAN CORPUSCULAR HEMOGLOBIN 30.3 pg (27.0-33.4); MEAN CORPUSCULAR HGB CONC 34.8 g/dL (32.0-36.0); MEAN CORPUSCULAR VOLUME 87 fl (80-97); MONOCYTES % (AUTO) 8.4 % (3-13); PLATELET COUNT 312 10^3/uL (150-450); RED BLOOD COUNT 3.47 10^6/uL (4.35-5.55); RED CELL DISTRIBUTION WIDTH 14.1 % (11.5-14.0); SEGMENTED NEUTROPHILS % (AUTO) 63.7 % (42-78); TOTAL CELLS COUNTED % (AUTO) 100 %; WHITE BLOOD COUNT 8.3 10^3/uL (4.0-10.5)
[2019-04-03 12:19] LABS: BLOOD UREA NITROGEN 10 mg/dL (7-20); CALCIUM 9.2 mg/dL (8.4-10.2); CARBON DIOXIDE 22 mmol/L (22-30); GLUCOSE 81 mg/dL (75-110); POTASSIUM 3.3 mmol/L (3.6-5.0)
[2019-04-03 12:54] LABS: ANION GAP 9 (5-19); CHLORIDE 111 mmol/L (98-107)
[2019-04-03] MEDS: ENOXAPARIN SODIUM INJ 40 MG/0.4 ML DISP.SYRIN SUBCUT SCH (13:41)
[2019-04-03] MEDS: AMLODIPINE BESYLATE 10 MG TABLET PO SCH (13:42)
[2019-04-03] MEDS: DIVALPROEX SODIUM 250 MG TAB.SR.24H PO SCH ×2 (13:42→21:23)
[2019-04-03] MEDS: FAMOTIDINE 20 MG TABLET PO SCH ×2 (13:42→21:23)
[2019-04-03] MEDS: FENOFIBRATE NANOCRYSTALLIZED 145 MG TABLET PO SCH (13:43)
[2019-04-03] MEDS: RISPERIDONE 0.25 MG TABLET PO SCH ×2 (13:43→17:07)
[2019-04-03] MEDS ORDERED: LORAZEPAM INJ 2 MG/1 ML VIAL ONE (16:37)
[2019-04-03] MEDS: LORAZEPAM INJ 2 MG/1 ML VIAL IV PRN ×2 (16:57→20:57)
[2019-04-03] MEDS: ASPIRIN 81 MG TABLET, ENT COATED PO SCH (21:23)
[2019-04-04] MEDS: LORAZEPAM INJ 2 MG/1 ML VIAL IV PRN ×2 (01:07→19:34)
[2019-04-04] MEDS ORDERED: POTASSIUM CHLORIDE 10 MEQ CAPSULE.ER PO ONE (10:00)
[2019-04-04] MEDS: DOCUSATE SODIUM 100 MG CAPSULE PO SCH (11:13)
[2019-04-04] MEDS: FAMOTIDINE 20 MG TABLET PO SCH ×2 (11:13→21:58)
[2019-04-04] MEDS: DIVALPROEX SODIUM 250 MG TAB.SR.24H PO SCH ×2 (11:13→21:58)
[2019-04-04] MEDS: AMLODIPINE BESYLATE 10 MG TABLET PO SCH (11:13)
[2019-04-04] MEDS: FENOFIBRATE NANOCRYSTALLIZED 145 MG TABLET PO SCH (11:14)
[2019-04-04] MEDS: ENOXAPARIN SODIUM INJ 40 MG/0.4 ML DISP.SYRIN SUBCUT SCH (11:14)
[2019-04-04] MEDS: RISPERIDONE 0.25 MG TABLET PO SCH ×2 (11:15→18:13)
--- NOTE | 2019-04-04 12:02 | PDOC PROGRESS REPORT ---
Subjective Progress Note for:: 04/04/19 Subjective:: This is a 58 yr old male with a PMH of CVA wiht leg leg residual weakness who presented with lightheadedness and confusion. He was noted to be in acute renal failure as well upon admission. He was also combative and required violent 4 point restraints and hence was admitted to the ICU. His mentation did improve. Reportedly, he has had episodes of violent outbursts at home before. 03/31: Upon encounter, patient is not in distress and appears calm. He is just on soft restraints now. He does not appear to be agitated. He is oriented to person and says he is in [place] He denies any chest pain or shortness of breath but is not very conversant at this time. 04/01: He appears more alert and responsive today. He is only oriented to person. Upon further problem pain and encouraging, he becomes more conversant. He denies suicidal or homicidal ideations. He does nod yes when asked if he is depressed. He denies hallucinations or delusions. On further encouragement, he eventually agreed to cooperate with speech therapist and passed his swallow evaluation. He has been calm and has not been agitated in the past 48 hours. He has been restraint-free to whole day. 04/02: No acute event overnight. No episode of agitation or combativeness. He continues to be more conversant today but he is not well-oriented yet. He denies acute complaints. 04/03: Patient was apparently fine but developed acute agitation and combativeness last night. He does have prior episodes of outbursts of anger and agitation at home and had a few initial episodes during this hospital course as well. 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 Awaiting placement. 04/04: No acute event overnight. No severe agitation. This morning, he appears comfortable and calm and is oriented to person but not to time or place. He is able to recognize me and says that I have been his doctor in the past few days. He is medically cleared for transfer to facility. Discharge planning working on possible placement to [facility] vs [place]. Reason For Visit: ALTERED MENTAL STATUS,ATAXIA, CVA HYPERTENSION Physical Exam Vital Signs: Temp Pulse Resp BP Pulse Ox 97.7 F 79 18 148/74 H 96 04/04/19 07:37 04/04/19 07:37 04/04/19 07:37 04/04/19 07:37 04/04/19 07:37 Intake & Output 04/03/19 04/04/19 04/05/19 06:59 06:59 06:59 Intake Total 620 240 Output Total 900 Balance -280 240 Weight 148 lb 5.938 oz 148 lb 5.938 oz General appearance: PRESENT: no acute distress, well-developed, well-nourished Head exam: PRESENT: atraumatic, normocephalic Eye exam: PRESENT: conjunctiva pink, EOMI, PERRLA. ABSENT: scleral icterus Ear exam: PRESENT: normal external ear exam Mouth exam: PRESENT: moist, tongue midline Neck exam: ABSENT: carotid bruit, JVD, lymphadenopathy, thyromegaly Respiratory exam: PRESENT: clear to auscultation jackie. ABSENT: rales, rhonchi, wheezes Cardiovascular exam: PRESENT: RRR. ABSENT: diastolic murmur, rubs, systolic murmur Pulses: PRESENT: normal dorsalis pedis pul GI/Abdominal exam: PRESENT: normal bowel sounds, soft. ABSENT: distended, guarding, mass, organolmegaly, rebound, tenderness Rectal exam: PRESENT: deferred Neurological exam: PRESENT: alert, awake, oriented to person, CN II-XII grossly intact. ABSENT: motor sensory deficit Results Laboratory Results: 04/03/19 11:38 04/03/19 11:38 04/03/19 11:38 Sodium 142.0 Potassium 3.3 L Chloride 111 H Carbon Dioxide 22 Anion Gap 9 BUN 10 Creatinine 0.84 Est GFR ( Amer) > 60 Glucose 81 Calcium 9.2 Folate 6.10 03/27/19 03/27/19 16:32 16:32 Creatine Kinase 54 L CK-MB (CK-2) < 0.22 Impressions: Brain MRI with MRA 03/27/19 00:00 IMPRESSION: Diminutive appearance of right vertebral artery, incompletely assessed. Otherwise no significant vascular abnormalities CAROTID STENOSIS REFERENCE USING NASCET CRITERIA: % ICA stenosis = (1 - narrowest ICA diameter/diameter of distal cervical ICA) x 100. Mild - <50% stenosis. Moderate - 50-69% stenosis. Severe - 70-94% stenosis. Near occlusion - 95-99% stenosis. Occluded - 100% stenosis. Head MRI 03/27/19 00:00 IMPRESSION: No acute intracranial findings. Head CT 03/27/19 16:05 IMPRESSION: MILD CHRONIC CHANGES OF ATROPHY AND MICROVASCULAR ISCHEMIA. NO ACUTE PROCESS. EVIDENCE OF ACUTE STROKE: NO. Carotid Doppler Study 03/30/19 00:00 IMPRESSION: 50 to 69% diameter narrowing by velocity criteria right proximal ICA No flow significant stenosis left carotid bifurcation Antegrade pulsatile vertebral artery flow bilaterally, left vertebral artery is dominant Assessment and Plan - Diagnosis (1) Acute delirium Is this a current diagnosis for this admission?: Yes Plan: Patient initially became combative and required 4 point restraints. Appears this has improved and he has been more calm and cooperative. Acute renal failure may have contributed to the encephalopathy but reportedly patient had prior outbursts of agitation at home. Will consult psych for further recommendations. 04/01: Appreciate psych recs. Medication recommendations reconciled. 04/02: Resolving. 04/03: Patient was apparently fine but developed acute agitation and combativeness last night. He does have prior episodes of outbursts of anger and agitation at home and had a few initial episodes during this hospital course as well. He has episodic outbursts and waxing and waning agitation with lucid intervals in between. Suspect patient has some form of dementia from a combination of alcoholic and vascular dementia considering MRI results (old infa rcts and brain atrophy) and chronic alcoholism. 04/04: Awaiting placement. (2) Acute renal failure Qualifiers: Acute renal failure type: unspecified Qualified Code(s): N17.9 - Acute kidney failure, unspecified Is this a current diagnosis for this admission?: Yes Plan: Resolved with IV fluids. (3) Dehydration Is this a current diagnosis for this admission?: Yes Plan: Resolved. DCed IV fluids. (4) Hypokalemia Is this a current diagnosis for this admission?: Yes Plan: PO replacement.
[2019-04-04] MEDS: POTASSIUM CHLORIDE 10 MEQ CAPSULE.ER PO SCH ×2 (15:18→21:48)
--- NOTE | 2019-04-04 16:11 | PSYCHOLOGICAL NOTE ---
Psych Note - Psych Note Date seen by psych provider: 04/04/19 Time seen by psych provider: 12:00 Psych Note: Reason for Consult: Requested re-consult by attending physician because of increase aggression and psychosis Patient was unable to engage in evaluation. Upon making eye contact with clinician, the patient started crying and mumbling incoherently. Chart review conducted: Patient's sisters reported the patient had a stroke 6 years ago that left him with weakness in his left lower extremity and visible tremor. She reported the patient's baseline mental status with some very mild confusion. He normally does not know the year but answers all questions appropriately. Diagnosis: Unspecified neurocognitive disorder Medication recommendations made by the psychiatric medical provider, Dr. Ariel MD., includes: Discontinue Ativan Please do not use Haldol Please add Clonidine 0.1mg 24-hour transdermal patch Increase Depakote to 500MG twice a day for mood stabilization Continue Risperdal 0.25MG Q8Am and Q4PM Impression/Plan: Medication recommendations have been provided. It is noted the patient demonstrated difficulty in being redirected on the at which point the patient was provided Haldol and Ativan. After these medications the patient's aggression and confusion increased. Attending physicians are asked to consider to avoid prescribing benzodiazepines (e.g. Ativan, Xanax, Valium, Klonopin), antipsychotics (e.g. Haldol, Geodon, Zyprexa, Seroquel), some sleep aids (e.g. Ambien, Lunesta, Sonata), narcotic pain medications, and high-dose steroids (prednisone) have been known to cause and/or increased symptoms of aggression, psychosis and/or paranoia in patients with neurodegenerative processes such as dementia, Alzheimer's disease, traumatic brain injury, etc. Dr. Christiansen was consulted to care management of this patient; attending physicians in agreement with recommendations and disposition.
[2019-04-04] MEDS ORDERED: RISPERIDONE MICROSPHERES INJ 12.5 MG/2 ML KIT IM PRN (18:01)
[2019-04-04] MEDS: ASPIRIN 81 MG TABLET, ENT COATED PO SCH (21:48)
--- NOTE | 2019-04-05 11:21 | PDOC PROGRESS REPORT ---
Subjective Progress Note for:: 04/05/19 Subjective:: This is a 58 yr old male with a PMH of CVA wiht leg leg residual weakness who presented with lightheadedness and confusion. He was noted to be in acute renal failure as well upon admission. He was also combative and required violent 4 point restraints and hence was admitted to the ICU. His mentation did improve. Reportedly, he has had episodes of violent outbursts at home before. 03/31: Upon encounter, patient is not in distress and appears calm. He is just on soft restraints now. He does not appear to be agitated. He is oriented to person and says he is in [place] He denies any chest pain or shortness of breath but is not very conversant at this time. 04/01: He appears more alert and responsive today. He is only oriented to person. Upon further problem pain and encouraging, he becomes more conversant. He denies suicidal or homicidal ideations. He does nod yes when asked if he is depressed. He denies hallucinations or delusions. On further encouragement, he eventually agreed to cooperate with speech therapist and passed his swallow evaluation. He has been calm and has not been agitated in the past 48 hours. He has been restraint-free to whole day. 04/02: No acute event overnight. No episode of agitation or combativeness. He continues to be more conversant today but he is not well-oriented yet. He denies acute complaints. 04/03: Patient was apparently fine but developed acute agitation and combativeness last night. He does have prior episodes of outbursts of anger and agitation at home and had a few initial episodes during this hospital course as well. 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 Awaiting placement. 04/04: No severe agitation. This morning, he appears comfortable and calm and is oriented to person but not to time or place. He is able to recognize me and says that I have been his doctor in the past few days. He is medically cleared for transfer to facility. Discharge planning working on possible placement to [facility] vs [place]. 04/05: No acute event overnight. He did not require any Ativan or prn Haldol overnight. Denies acute complaint. Awaiting on placement. Reason For Visit: ALTERED MENTAL STATUS,ATAXIA, CVA HYPERTENSION Physical Exam Vital Signs: Temp Pulse Resp BP Pulse Ox 97.8 F 82 12 157/81 H 97 04/05/19 07:40 04/05/19 07:40 04/05/19 07:40 04/05/19 07:40 04/05/19 07:40 Intake & Output 04/04/19 04/05/19 04/06/19 06:59 06:59 06:59 Intake Total 240 165 Balance 240 165 Weight 148 lb 5.938 oz 145 lb 8.081 oz General appearance: PRESENT: no acute distress, well-developed, well-nourished Head exam: PRESENT: atraumatic, normocephalic Eye exam: PRESENT: conjunctiva pink, EOMI, PERRLA. ABSENT: scleral icterus Ear exam: PRESENT: normal external ear exam Mouth exam: PRESENT: moist, tongue midline Neck exam: ABSENT: carotid bruit, JVD, lymphadenopathy, thyromegaly Respiratory exam: PRESENT: clear to auscultation jackie. ABSENT: rales, rhonchi, wheezes Cardiovascular exam: PRESENT: RRR. ABSENT: diastolic murmur, rubs, systolic murmur Pulses: PRESENT: normal dorsalis pedis pul GI/Abdominal exam: PRESENT: normal bowel sounds, soft. ABSENT: distended, guarding, mass, organolmegaly, rebound, tenderness Rectal exam: PRESENT: deferred Neurological exam: PRESENT: alert, awake, oriented to person, CN II-XII grossly intact. ABSENT: motor sensory deficit Results Laboratory Results: 04/03/19 11:38 04/04/19 15:35 04/04/19 15:35 Potassium 3.5 L 03/27/19 03/27/19 16:32 16:32 Creatine Kinase 54 L CK-MB (CK-2) < 0.22 Impressions: Brain MRI with MRA 03/27/19 00:00 IMPRESSION: Diminutive appearance of right vertebral artery, incompletely assessed. Otherwise no significant vascular abnormalities CAROTID STENOSIS REFERENCE USING NASCET CRITERIA: % ICA stenosis = (1 - narrowest ICA diameter/diameter of distal cervical ICA) x 100. Mild - <50% stenosis. Moderate - 50-69% stenosis. Severe - 70-94% stenosis. Near occlusion - 95-99% stenosis. Occluded - 100% stenosis. Head MRI 03/27/19 00:00 IMPRESSION: No acute intracranial findings. Head CT 03/27/19 16:05 IMPRESSION: MILD CHRONIC CHANGES OF ATROPHY AND MICROVASCULAR ISCHEMIA. NO ACUTE PROCESS. EVIDENCE OF ACUTE STROKE: NO. Carotid Doppler Study 03/30/19 00:00 IMPRESSION: 50 to 69% diameter narrowing by velocity criteria right proximal ICA No flow significant stenosis left carotid bifurcation Antegrade pulsatile vertebral artery flow bilaterally, left vertebral artery is dominant Assessment and Plan - Diagnosis (1) Acute delirium Is this a current diagnosis for this admission?: Yes Plan: Patient initially became combative and required 4 point restraints. Appears this has improved and he has been more calm and cooperative. Acute renal failure may have contributed to the encephalopathy but reportedly patient had prior outbursts of agitation at home. Will consult psych for further recommendations. 04/01: Appreciate psych recs. Medication recommendations reconciled. 04/02: Resolving. 04/03: Patient was apparently fine but developed acute agitation and combativeness last night. He does have prior episodes of outbursts of anger and agitation at home and had a few initial episodes during this hospital course as well. He has episodic outbursts and waxing and waning agitation with lucid intervals in between. 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 04/05: Awaiting placement. (2) Acute renal failure Qualifiers: Acute renal failure type: unspecified Qualified Code(s): N17.9 - Acute kidney failure, unspecified Is this a current diagnosis for this admission?: Yes Plan: Resolved with IV fluids. (3) Dehydration Is this a current diagnosis for this admission?: Yes Plan: Resolved. DCed IV fluids. (4) Hypokalemia Is this a current diagnosis for this admission?: Yes Plan: Continue PO replacement. - Time Time Spent with patient: 15-24 minutes
[2019-04-05] MEDS: POTASSIUM CHLORIDE 10 MEQ CAPSULE.ER PO SCH ×2 (11:28→23:32)
[2019-04-05] MEDS: ENOXAPARIN SODIUM INJ 40 MG/0.4 ML DISP.SYRIN SUBCUT SCH (11:29)
[2019-04-05] MEDS: FENOFIBRATE NANOCRYSTALLIZED 145 MG TABLET PO SCH (11:29)
[2019-04-05] MEDS: RISPERIDONE 0.25 MG TABLET PO SCH ×4 (11:29→17:32)
[2019-04-05] MEDS: AMLODIPINE BESYLATE 10 MG TABLET PO SCH (11:29)
[2019-04-05] MEDS: FAMOTIDINE 20 MG TABLET PO SCH ×2 (11:29→23:32)
[2019-04-05] MEDS: DOCUSATE SODIUM 100 MG CAPSULE PO SCH (11:29)
[2019-04-05] MEDS: DIVALPROEX SODIUM 250 MG TAB.SR.24H PO SCH ×2 (11:29→23:32)
[2019-04-05] MEDS: LORAZEPAM INJ 2 MG/1 ML VIAL IV PRN (19:01)
[2019-04-05] MEDS: ASPIRIN 81 MG TABLET, ENT COATED PO SCH (23:32)
[2019-04-06] MEDS: DOCUSATE SODIUM 100 MG CAPSULE PO SCH (11:51)
[2019-04-06] MEDS: FAMOTIDINE 20 MG TABLET PO SCH ×2 (11:53→21:33)
[2019-04-06] MEDS: FENOFIBRATE NANOCRYSTALLIZED 145 MG TABLET PO SCH (11:54)
[2019-04-06] MEDS: POTASSIUM CHLORIDE 10 MEQ CAPSULE.ER PO SCH ×2 (11:59→21:33)
[2019-04-06] MEDS: ENOXAPARIN SODIUM INJ 40 MG/0.4 ML DISP.SYRIN SUBCUT SCH (11:59)
[2019-04-06] MEDS: AMLODIPINE BESYLATE 10 MG TABLET PO SCH ×2 (11:59→12:34)
[2019-04-06] MEDS: DIVALPROEX SODIUM 250 MG TAB.SR.24H PO SCH ×2 (11:59→21:32)
[2019-04-06] MEDS: RISPERIDONE 0.25 MG TABLET PO SCH ×3 (12:00→18:02)
--- NOTE | 2019-04-06 15:15 | PDOC PROGRESS REPORT ---
Subjective Progress Note for:: 04/06/19 Subjective:: This is a 58 yr old male with a PMH of CVA wiht leg leg residual weakness who presented with lightheadedness and confusion. He was noted to be in acute renal failure as well upon admission. He was also combative and required violent 4 point restraints and hence was admitted to the ICU. His mentation did improve. Reportedly, he has had episodes of violent outbursts at home before. 03/31: Upon encounter, patient is not in distress and appears calm. He is just on soft restraints now. He does not appear to be agitated. He is oriented to person and says he is in [place] He denies any chest pain or shortness of breath but is not very conversant at this time. 04/01: He appears more alert and responsive today. He is only oriented to person. Upon further problem pain and encouraging, he becomes more conversant. He denies suicidal or homicidal ideations. He does nod yes when asked if he is depressed. He denies hallucinations or delusions. On further encouragement, he eventually agreed to cooperate with speech therapist and passed his swallow evaluation. He has been calm and has not been agitated in the past 48 hours. He has been restraint-free to whole day. 04/02: No acute event overnight. No episode of agitation or combativeness. He continues to be more conversant today but he is not well-oriented yet. He denies acute complaints. 04/03: Patient was apparently fine but developed acute agitation and combativeness last night. He does have prior episodes of outbursts of anger and agitation at home and had a few initial episodes during this hospital course as well. 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 Awaiting placement. 04/04: No severe agitation. This morning, he appears comfortable and calm and is oriented to person but not to time or place. He is able to recognize me and says that I have been his doctor in the past few days. He is medically cleared for transfer to facility. Discharge planning working on possible placement to [facility] vs [place]. 04/05: He did not require any Ativan or prn Haldol overnight. Denies acute complaint. 04/06: No acute event overnight. Denies acute complaint. Patient is just awaiting for placement. Discharge planning working on placing him to [place]. Reason For Visit: ALTERED MENTAL STATUS,ATAXIA, CVA HYPERTENSION Physical Exam Vital Signs: Temp Pulse Resp BP Pulse Ox 98.4 F 90 16 152/85 H 98 04/06/19 08:33 04/06/19 08:33 04/06/19 08:33 04/06/19 08:33 04/06/19 08:33 Intake & Output 04/05/19 04/06/19 04/07/19 06:59 06:59 06:59 Intake Total 165 387 120 Balance 165 387 120 Weight 145 lb 8.081 oz 141 lb 1.533 oz General appearance: PRESENT: no acute distress, well-developed, well-nourished Head exam: PRESENT: atraumatic, normocephalic Eye exam: PRESENT: conjunctiva pink, EOMI, PERRLA. ABSENT: scleral icterus Ear exam: PRESENT: normal external ear exam Mouth exam: PRESENT: moist, tongue midline Neck exam: ABSENT: carotid bruit, JVD, lymphadenopathy, thyromegaly Respiratory exam: PRESENT: clear to auscultation jackie. ABSENT: rales, rhonchi, wheezes Cardiovascular exam: PRESENT: RRR. ABSENT: diastolic murmur, rubs, systolic murmur Pulses: PRESENT: normal dorsalis pedis pul GI/Abdominal exam: PRESENT: normal bowel sounds, soft. ABSENT: distended, guarding, mass, organolmegaly, rebound, tenderness Rectal exam: PRESENT: deferred Neurological exam: PRESENT: alert, awake, oriented to person. ABSENT: oriented to place, oriented to time, oriented to situation Results Laboratory Results: 04/03/19 11:38 04/04/19 15:35 03/27/19 03/27/19 16:32 16:32 Creatine Kinase 54 L CK-MB (CK-2) < 0.22 Impressions: Brain MRI with MRA 03/27/19 00:00 IMPRESSION: Diminutive appearance of right vertebral artery, incompletely assessed. Otherwise no significant vascular abnormalities CAROTID STENOSIS REFERENCE USING NASCET CRITERIA: % ICA stenosis = (1 - narrowest ICA diameter/diameter of distal cervical ICA) x 100. Mild - <50% stenosis. Moderate - 50-69% stenosis. Severe - 70-94% stenosis. Near occlusion - 95-99% stenosis. Occluded - 100% stenosis. Head MRI 03/27/19 00:00 IMPRESSION: No acute intracranial findings. Head CT 03/27/19 16:05 IMPRESSION: MILD CHRONIC CHANGES OF ATROPHY AND MICROVASCULAR ISCHEMIA. NO ACUTE PROCESS. EVIDENCE OF ACUTE STROKE: NO. Carotid Doppler Study 03/30/19 00:00 IMPRESSION: 50 to 69% diameter narrowing by velocity criteria right proximal ICA No flow significant stenosis left carotid bifurcation Antegrade pulsatile vertebral artery flow bilaterally, left vertebral artery is dominant Assessment and Plan - Diagnosis (1) Acute delirium Is this a current diagnosis for this admission?: Yes Plan: Patient initially became combative and required 4 point restraints. Appears this has improved and he has been more calm and cooperative. Acute renal failure may have contributed to the encephalopathy but reportedly patient had prior outbursts of agitation at home. Will consult psych for further recommendations. 04/01: Appreciate psych recs. Medication recommendations reconciled. 04/02: Resolving. 04/03: Patient was apparently fine but developed acute agitation and combativeness last night. He does have prior episodes of outbursts of anger and agitation at home and had a few initial episodes during this hospital course as well. He has episodic outbursts and waxing and waning agitation with lucid intervals in between. 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 Discussed with sister over the phone who confirmed he does have prior history of chronic heavy alcohol drinking in the past. She does also report that patient's waxing and waning behavioral issues happened after he had a stroke. 04/06: Awaiting placement. (2) Acute renal failure Qualifiers: Acute renal failure type: unspecified Qualified Code(s): N17.9 - Acute kidney failure, unspecified Is this a current diagnosis for this admission?: Yes Plan: Resolved with IV fluids. (3) Dehydration Is this a current diagnosis for this admission?: Yes Plan: Resolved. DCed IV fluids. (4) Hypokalemia Is this a current diagnosis for this admission?: Yes Plan: Continue PO replacement. (5) History of CVA (cerebrovascular accident) Is this a current diagnosis for this admission?: Yes Plan: Continue aspirin. Also added statin.
[2019-04-06 16:00] LABS: POTASSIUM 4.1 mmol/L (3.6-5.0)
[2019-04-06] MEDS: LORAZEPAM INJ 2 MG/1 ML VIAL IV PRN ×2 (17:58→23:58)
[2019-04-06] MEDS: ASPIRIN 81 MG TABLET, ENT COATED PO SCH (21:32)
[2019-04-06] MEDS: ATORVASTATIN CALCIUM 40 MG TABLET PO SCH (21:33)
[2019-04-07] MEDS: AMLODIPINE BESYLATE 10 MG TABLET PO SCH (09:27)
[2019-04-07] MEDS: FENOFIBRATE NANOCRYSTALLIZED 145 MG TABLET PO SCH (09:27)
[2019-04-07] MEDS: RISPERIDONE 0.25 MG TABLET PO SCH ×2 (09:30→18:24)
[2019-04-07] MEDS: DOCUSATE SODIUM 100 MG CAPSULE PO SCH (09:30)
[2019-04-07] MEDS: FAMOTIDINE 20 MG TABLET PO SCH ×2 (09:30→21:38)
[2019-04-07] MEDS: DIVALPROEX SODIUM 250 MG TAB.SR.24H PO SCH ×2 (09:31→21:37)
--- NOTE | 2019-04-07 09:36 | PDOC PROGRESS REPORT ---
Subjective Progress Note for:: 04/07/19 Subjective:: 03/28/2019. He was admitted to hospital yesterday for confusion ataxia and lightheadedness. Patient's neurology work-up so far has been negative MRI of the brain negative MRI of the brain negative CT of the head scan only chronic ischemic changes no acute changes. Graph patient reports he is feeling stronger today also is alert and oriented. Possibly DC to home tomorrow if renal function continues to improve 04/07/2019 waiting for placement patient waiting for [facility]. Patient remains confused. Patient has been denied at [facility] as of yesterday, 219 Reason For Visit: ALTERED MENTAL STATUS,ATAXIA, CVA HYPERTENSION Physical Exam Vital Signs: Temp Pulse Resp BP Pulse Ox 97.6 F 89 18 150/87 H 99 04/07/19 08:01 04/07/19 08:01 04/07/19 08:01 04/07/19 08:01 04/07/19 08:01 Intake & Output 04/06/19 04/07/19 04/08/19 06:59 06:59 06:59 Intake Total 387 360 Balance 387 360 Weight 64 kg 61.5 kg General appearance: PRESENT: no acute distress, disheveled, other - Lying in bed with no complaints Respiratory exam: PRESENT: clear to auscultation jackie. ABSENT: rales, rhonchi, wheezes Cardiovascular exam: PRESENT: RRR. ABSENT: diastolic murmur, rubs, systolic murmur Neurological exam: PRESENT: alert, altered, other - Patient is disoriented to time, place and person. Psychiatric exam: PRESENT: flat affect Results Laboratory Results: 04/03/19 11:38 04/06/19 15:20 04/06/19 15:20 Potassium 4.1 Magnesium 1.6 03/27/19 03/27/19 16:32 16:32 Creatine Kinase 54 L CK-MB (CK-2) < 0.22 Impressions: Brain MRI with MRA 03/27/19 00:00 IMPRESSION: Diminutive appearance of right vertebral artery, incompletely assessed. Otherwise no significant vascular abnormalities CAROTID STENOSIS REFERENCE USING NASCET CRITERIA: % ICA stenosis = (1 - narrowest ICA diameter/diameter of distal cervical ICA) x 100. Mild - <50% stenosis. Moderate - 50-69% stenosis. Severe - 70-94% stenosis. Near occlusion - 95-99% stenosis. Occluded - 100% stenosis. Head MRI 03/27/19 00:00 IMPRESSION: No acute intracranial findings. Head CT 03/27/19 16:05 IMPRESSION: MILD CHRONIC CHANGES OF ATROPHY AND MICROVASCULAR ISCHEMIA. NO ACUTE PROCESS. EVIDENCE OF ACUTE STROKE: NO. Carotid Doppler Study 03/30/19 00:00 IMPRESSION: 50 to 69% diameter narrowing by velocity criteria right proximal ICA No flow significant stenosis left carotid bifurcation Antegrade pulsatile vertebral artery flow bilaterally, left vertebral artery is dominant Assessment and Plan - Diagnosis (1) CVA (cerebral vascular accident) Is this a current diagnosis for this admission?: Yes Plan: Patient has CVA 6 years ago and was actually admitted here at [facility]. This left him with a residual left lower extremity weakness some speech dysarthria. According to the sister in the last day or 2 he is seemed weaker than normal and more confused. According to a coworker it is been going on about a week now She emphatically denies any drugs no marijuana no alcohol, no illegal substances. Patient does admit to smoking about 10 cigarettes/day. 03/28/2019 MRI, MRA, CT of the head show no acute findings. patient is neuro logically stable today, patient states he feels less confused as well as stronger 03/29/2019-MRI and CAT scan of the brain shows no acute findings. Patient remains confused after becoming extremely violent yesterday and had to be put in four-point restraints. Also getting 1 mg of Ativan every 4 hours. Stable from a CVA standpoint 03/30/2019-continue to follow patient. Patient less violent and able to answer his to his name at this time. He continues with two-point restraints and Ativan as needed. 04/07/2019 patient remains confused probably based on dementia secondary to alcohol and vascular changes. No focal deficits. (2) Acute renal failure Qualifiers: Acute renal failure type: unspecified Qualified Code(s): N17.9 - Acute kidney failure, unspecified Is this a current diagnosis for this admission?: Yes Plan: Resolved with IV fluids. 04/07/2019 patient's renal functions are stable yesterday potassium 4.1, BUN of 10 creatinine 0.84. Repeat electrolytes today. (3) Dehydration Is this a current diagnosis for this admission?: Yes - Time Time Spent with patient: 25-34 minutes
[2019-04-07] MEDS: POTASSIUM CHLORIDE 10 MEQ CAPSULE.ER PO SCH ×2 (09:37→21:37)
[2019-04-07] MEDS: ENOXAPARIN SODIUM INJ 40 MG/0.4 ML DISP.SYRIN SUBCUT SCH (09:38)
[2019-04-07] MEDS: LORAZEPAM INJ 2 MG/1 ML VIAL IV PRN ×2 (09:43→15:11)
[2019-04-07 11:10] LABS: ANION GAP 8 (5-19); BLOOD UREA NITROGEN 26 mg/dL (7-20); CALCIUM 9.6 mg/dL (8.4-10.2); CARBON DIOXIDE 23 mmol/L (22-30); CHLORIDE 111 mmol/L (98-107); GLUCOSE 145 mg/dL (75-110); POTASSIUM 3.5 mmol/L (3.6-5.0)
[2019-04-07] MEDS: ASPIRIN 81 MG TABLET, ENT COATED PO SCH (21:37)
[2019-04-07] MEDS: ATORVASTATIN CALCIUM 40 MG TABLET PO SCH (21:38)
[2019-04-08] MEDS: LORAZEPAM INJ 2 MG/1 ML VIAL IV PRN (06:52)
--- NOTE | 2019-04-08 09:35 | PDOC PROGRESS REPORT ---
Subjective Progress Note for:: 04/08/19 Subjective:: 03/28/2019. He was admitted to hospital yesterday for confusion ataxia and lightheadedness. Patient's neurology work-up so far has been negative MRI of the brain negative MRI of the brain negative CT of the head scan only chronic ischemic changes no acute changes. Graph patient reports he is feeling stronger today also is alert and oriented. Possibly DC to home tomorrow if renal function continues to improve 04/07/2019 waiting for placement patient waiting for [facility]. Patient remains confused. Patient has been denied at [facility] as of yesterday, 04/06/19. 04/08/2019 discharge planning is working on the placement locations. At the present time it will take several more days secure long-term placement. Patient is medically stable Reason For Visit: ALTERED MENTAL STATUS,ATAXIA, CVA HYPERTENSION Physical Exam Vital Signs: Temp Pulse Resp BP Pulse Ox 97.6 F 83 18 131/77 H 96 04/08/19 08:18 04/08/19 08:18 04/08/19 08:18 04/08/19 08:18 04/08/19 08:18 Intake & Output 04/07/19 04/08/19 04/09/19 06:59 06:59 06:59 Intake Total 360 720 Balance 360 720 Weight 61.5 kg 62.5 kg General appearance: PRESENT: no acute distress Respiratory exam: PRESENT: clear to auscultation jackie. ABSENT: rales, rhonchi, wheezes Cardiovascular exam: PRESENT: RRR. ABSENT: diastolic murmur, rubs, systolic murmur Neurological exam: PRESENT: alert, altered, awake, other - Patient is alert however he is disoriented to person place and time. Patient axes though he has a dementia which is a possibility either from alcohol or from his previous CVA Psychiatric exam: PRESENT: flat affect Results Laboratory Results: 04/03/19 11:38 04/07/19 10:30 04/07/19 10:30 Sodium 142.2 Potassium 3.5 L Chloride 111 H Carbon Dioxide 23 Anion Gap 8 BUN 26 H Creatinine 1.02 Est GFR ( Amer) > 60 Glucose 145 H Calcium 9.6 03/27/19 03/27/19 16:32 16:32 Creatine Kinase 54 L CK-MB (CK-2) < 0.22 Impressions: Brain MRI with MRA 03/27/19 00:00 IMPRESSION: Diminutive appearance of right vertebral artery, incompletely assessed. Otherwise no significant vascular abnormalities CAROTID STENOSIS REFERENCE USING NASCET CRITERIA: % ICA stenosis = (1 - narrowest ICA diameter/diameter of distal cervical ICA) x 100. Mild - <50% stenosis. Moderate - 50-69% stenosis. Severe - 70-94% stenosis. Near occlusion - 95-99% stenosis. Occluded - 100% stenosis. Head MRI 03/27/19 00:00 IMPRESSION: No acute intracranial findings. Head CT 03/27/19 16:05 IMPRESSION: MILD CHRONIC CHANGES OF ATROPHY AND MICROVASCULAR ISCHEMIA. NO ACUTE PROCESS. EVIDENCE OF ACUTE STROKE: NO. Carotid Doppler Study 03/30/19 00:00 IMPRESSION: 50 to 69% diameter narrowing by velocity criteria right proximal ICA No flow significant stenosis left carotid bifurcation Antegrade pulsatile vertebral artery flow bilaterally, left vertebral artery is dominant Assessment and Plan - Diagnosis (1) CVA (cerebral vascular accident) Is this a current diagnosis for this admission?: Yes Plan: Patient has CVA 6 years ago and was actually admitted here at [place] [place]. This left him with a residual left lower extremity weakness some speech dysarthria. According to the sister in the last day or 2 he is seemed weaker than normal and more confused. According to a coworker it is been going on about a week now She emphatically denies any drugs no marijuana no alcohol, no illegal substances. Patient does admit to smoking about 10 cigarettes/day. 03/28/2019 MRI, MRA, CT of the head show no acute findings. patient is neurologically stable today, patient states he feels less confused as well as stronger 03/29/2019-MRI and CAT scan of the brain shows no acute findings. Patient remains confused after becoming extremely violent yesterday and had to be put in four-point restraints. Also getting 1 mg of Ativan every 4 hours. Stable from a CVA standpoint 03/30/2019-continue to follow patient. Patient less violent and able to answer his to his name at this time. He continues with two-point restraints and Ativan as needed. 04/07/2019 patient remains confused probably based on dementia secondary to alcoho l and vascular changes. No focal deficits.. 04/08/2019 she is neurologically stable, and basically unchanged patient is not violent or hostile or aggressive. Patient does not need restraints (2) Acute renal failure Qualifiers: Acute renal failure type: unspecified Qualified Code(s): N17.9 - Acute kidney failure, unspecified Is this a current diagnosis for this admission?: Yes Plan: Resolved with IV fluids. 04/07/2019 patient's renal functions are stable yesterday potassium 4.1, BUN of 10 creatinine 0.84. Repeat electrolytes today. 04/08/2019 patient's sodium is 142 potassium 3.5 BUN of 26 creatinine 1.02. Glucose 145. Patient is stable (3) Dehydration Is this a current diagnosis for this admission?: Yes Plan: Resolved. DCed IV fluids. 04/08/2019 patient only appears to be taking in around 350 mL's per day, will ask nursing consult dietary for long-term management - Time Time Spent with patient: 25-34 minutes
[2019-04-08] MEDS: ENOXAPARIN SODIUM INJ 40 MG/0.4 ML DISP.SYRIN SUBCUT SCH (10:34)
[2019-04-08] MEDS: POTASSIUM CHLORIDE 10 MEQ CAPSULE.ER PO SCH ×2 (10:34→21:01)
[2019-04-08] MEDS: DOCUSATE SODIUM 100 MG CAPSULE PO SCH (10:35)
[2019-04-08] MEDS: DIVALPROEX SODIUM 250 MG TAB.SR.24H PO SCH ×2 (10:35→21:00)
[2019-04-08] MEDS: FAMOTIDINE 20 MG TABLET PO SCH ×2 (10:35→21:01)
[2019-04-08] MEDS: FENOFIBRATE NANOCRYSTALLIZED 145 MG TABLET PO SCH (10:35)
[2019-04-08] MEDS: AMLODIPINE BESYLATE 10 MG TABLET PO SCH (10:35)
[2019-04-08] MEDS: RISPERIDONE 0.25 MG TABLET PO SCH ×2 (10:36→18:28)
[2019-04-08] MEDS: ATORVASTATIN CALCIUM 40 MG TABLET PO SCH (21:01)
[2019-04-08] MEDS: ASPIRIN 81 MG TABLET, ENT COATED PO SCH (21:01)
[2019-04-09] MEDS: ENOXAPARIN SODIUM INJ 40 MG/0.4 ML DISP.SYRIN SUBCUT SCH (10:00)
--- NOTE | 2019-04-09 11:19 | PDOC PROGRESS REPORT ---
Subjective Progress Note for:: 04/09/19 Subjective:: Patient sedated but arousable, confused denies complaints. Nurse reveals recurrent delirium requiring sedation and restraints overnight. Reason For Visit: ALTERED MENTAL STATUS,ATAXIA, CVA HYPERTENSION Physical Exam Vital Signs: Temp Pulse Resp BP Pulse Ox 98.0 F 92 16 126/73 H 99 04/09/19 03:12 04/09/19 03:12 04/09/19 03:12 04/09/19 03:12 04/09/19 03:12 Intake & Output 04/07/19 04/08/19 04/09/19 11:59 11:59 11:59 Intake Total 360 720 600 Balance 360 720 600 Weight 61.5 kg 62.5 kg 62.9 kg Results Laboratory Results: 04/03/19 11:38 04/07/19 10:30 03/27/19 03/27/19 16:32 16:32 Creatine Kinase 54 L CK-MB (CK-2) < 0.22 Impressions: Brain MRI with MRA 03/27/19 00:00 IMPRESSION: Diminutive appearance of right vertebral artery, incompletely assessed. Otherwise no significant vascular abnormalities CAROTID STENOSIS REFERENCE USING NASCET CRITERIA: % ICA stenosis = (1 - narrowest ICA diameter/diameter of distal cervical ICA) x 100. Mild - <50% stenosis. Moderate - 50-69% stenosis. Severe - 70-94% stenosis. Near occlusion - 95-99% stenosis. Occluded - 100% stenosis. Head MRI 03/27/19 00:00 IMPRESSION: No acute intracranial findings. Head CT 03/27/19 16:05 IMPRESSION: MILD CHRONIC CHANGES OF ATROPHY AND MICROVASCULAR ISCHEMIA. NO ACUTE PROCESS. EVIDENCE OF ACUTE STROKE: NO. Carotid Doppler Study 03/30/19 00:00 IMPRESSION: 50 to 69% diameter narrowing by velocity criteria right proximal ICA No flow significant stenosis left carotid bifurcation Antegrade pulsatile vertebral artery flow bilaterally, left vertebral artery is dominant Assessment and Plan - Diagnosis (1) Encephalopathy Is this a current diagnosis for this admission?: Yes Plan: Most likely vascular dementia with delirium. Patient's sister reports baseline confusion. Exacerbated by hospitalization and acute illness. Continue Risperdal and as needed benzodiazepine. (2) Vascular dementia Is this a current diagnosis for this admission?: Yes Plan: Supportive care - Time Time Spent with patient: 25-34 minutes
[2019-04-09] MEDS: POTASSIUM CHLORIDE 10 MEQ CAPSULE.ER PO SCH ×2 (11:24→21:56)
[2019-04-09] MEDS: FAMOTIDINE 20 MG TABLET PO SCH ×2 (11:24→21:56)
[2019-04-09] MEDS: DIVALPROEX SODIUM 250 MG TAB.SR.24H PO SCH ×2 (11:24→21:56)
[2019-04-09] MEDS: AMLODIPINE BESYLATE 10 MG TABLET PO SCH (11:24)
[2019-04-09] MEDS: FENOFIBRATE NANOCRYSTALLIZED 145 MG TABLET PO SCH (11:25)
[2019-04-09] MEDS: DOCUSATE SODIUM 100 MG CAPSULE PO SCH (11:25)
[2019-04-09] MEDS: RISPERIDONE 0.25 MG TABLET PO SCH ×2 (11:26→17:35)
[2019-04-09] MEDS: ASPIRIN 81 MG TABLET, ENT COATED PO SCH (21:55)
[2019-04-09] MEDS: ATORVASTATIN CALCIUM 40 MG TABLET PO SCH (21:56)
[2019-04-10] MEDS: LORAZEPAM INJ 2 MG/1 ML VIAL IV PRN ×3 (00:56→21:24)
--- NOTE | 2019-04-10 09:42 | PDOC PROGRESS REPORT ---
Subjective Progress Note for:: 04/10/19 Subjective:: Patient sedated but arousable, confused denies complaints. Nurse reveals recurrent delirium requiring sedation and restraints overnight. Reason For Visit: ALTERED MENTAL STATUS,ATAXIA, CVA HYPERTENSION Physical Exam Vital Signs: Temp Pulse Resp BP Pulse Ox 97.4 F 92 18 119/70 96 04/10/19 07:38 04/10/19 07:38 04/10/19 07:38 04/10/19 07:38 04/10/19 07:38 Intake & Output 04/08/19 04/09/19 04/10/19 11:59 11:59 11:59 Intake Total 720 600 Balance 720 600 Weight 62.5 kg 62.9 kg 62.6 kg General appearance: PRESENT: no acute distress, well-developed, well-nourished Head exam: PRESENT: atraumatic, normocephalic Eye exam: PRESENT: conjunctiva pink, EOMI, PERRLA. ABSENT: scleral icterus Ear exam: PRESENT: normal external ear exam Mouth exam: PRESENT: moist, tongue midline Neck exam: ABSENT: carotid bruit, JVD, lymphadenopathy, thyromegaly Respiratory exam: PRESENT: clear to auscultation jackie. ABSENT: rales, rhonchi, wheezes Cardiovascular exam: PRESENT: RRR. ABSENT: diastolic murmur, rubs, systolic murmur Pulses: PRESENT: normal dorsalis pedis pul Vascular exam: PRESENT: normal capillary refill GI/Abdominal exam: PRESENT: normal bowel sounds, soft. ABSENT: distended, guarding, mass, organolmegaly, rebound, tenderness Rectal exam: PRESENT: deferred Extremities exam: PRESENT: full ROM. ABSENT: calf tenderness, clubbing, pedal edema Neurological exam: PRESENT: alert, awake, oriented to person, oriented to place, oriented to time, oriented to situation, CN II-XII grossly intact. ABSENT: motor sensory deficit Psychiatric exam: PRESENT: appropriate affect, normal mood. ABSENT: homicidal ideation, suicidal ideation Skin exam: PRESENT: dry, intact, warm. ABSENT: cyanosis, rash Results Laboratory Results: 04/03/19 11:38 04/07/19 10:30 03/27/19 03/27/19 16:32 16:32 Creatine Kinase 54 L CK-MB (CK-2) < 0.22 Impressions: Brain MRI with MRA 03/27/19 00:00 IMPRESSION: Diminutive appearance of right vertebral artery, incompletely assessed. Otherwise no significant vascular abnormalities CAROTID STENOSIS REFERENCE USING NASCET CRITERIA: % ICA stenosis = (1 - narrowest ICA diameter/diameter of distal cervical ICA) x 100. Mild - <50% stenosis. Moderate - 50-69% stenosis. Severe - 70-94% stenosis. Near occlusion - 95-99% stenosis. Occluded - 100% stenosis. Head MRI 03/27/19 00:00 IMPRESSION: No acute intracranial findings. Head CT 03/27/19 16:05 IMPRESSION: MILD CHRONIC CHANGES OF ATROPHY AND MICROVASCULAR ISCHEMIA. NO ACUTE PROCESS. EVIDENCE OF ACUTE STROKE: NO. Carotid Doppler Study 03/30/19 00:00 IMPRESSION: 50 to 69% diameter narrowing by velocity criteria right proximal ICA No flow significant stenosis left carotid bifurcation Antegrade pulsatile vertebral artery flow bilaterally, left vertebral artery is dominant Assessment and Plan - Diagnosis (1) Encephalopathy Is this a current diagnosis for this admission?: Yes Plan: Most likely vascular dementia with delirium. Patient's sister reports baseline confusion. Exacerbated by hospitalization and acute illness. Continue Risperdal and as needed benzodiazepine. Nurse reports overnight episode of delirium requiring IV Ativan. Valium 5 mg p.o. nightly ordered (2) Vascular dementia Is this a current diagnosis for this admission?: Yes Plan: Supportive care - Time Time Spent with patient: 25-34 minutes - Inpatient Certification Medical Necessity: Need Close Monitoring Due to Risk of Patient Decompensation
[2019-04-10] MEDS: DIVALPROEX SODIUM 250 MG TAB.SR.24H PO SCH ×2 (10:16→21:16)
[2019-04-10] MEDS: AMLODIPINE BESYLATE 10 MG TABLET PO SCH (10:16)
[2019-04-10] MEDS: POTASSIUM CHLORIDE 10 MEQ CAPSULE.ER PO SCH ×2 (10:16→21:16)
[2019-04-10] MEDS: FENOFIBRATE NANOCRYSTALLIZED 145 MG TABLET PO SCH (10:17)
[2019-04-10] MEDS: ENOXAPARIN SODIUM INJ 40 MG/0.4 ML DISP.SYRIN SUBCUT SCH (10:17)
[2019-04-10] MEDS: FAMOTIDINE 20 MG TABLET PO SCH ×2 (10:17→21:16)
[2019-04-10] MEDS: RISPERIDONE 0.25 MG TABLET PO SCH ×2 (10:17→17:11)
[2019-04-10] MEDS: DOCUSATE SODIUM 100 MG CAPSULE PO SCH (10:17)
[2019-04-10] MEDS: ATORVASTATIN CALCIUM 40 MG TABLET PO SCH (21:16)
[2019-04-10] MEDS: DIAZEPAM 5 MG TABLET PO SCH (21:16)
[2019-04-10] MEDS: ASPIRIN 81 MG TABLET, ENT COATED PO SCH (21:16)
--- NOTE | 2019-04-11 09:19 | PDOC PROGRESS REPORT ---
Subjective Progress Note for:: 04/11/19 Subjective:: 03/28/2019. He was admitted to hospital yesterday for confusion ataxia and lightheadedness. Patient's neurology work-up so far has been negative MRI of the brain negative MRI of the brain negative CT of the head scan only chronic ischemic changes no acute changes. Graph patient reports he is feeling stronger today also is alert and oriented. Possibly DC to home tomorrow if renal function continues to improve 04/07/2019 waiting for placement patient waiting for [facility]. Patient remains confused. Patient has been denied at [facility] as of yesterday, 04/06/19. 04/08/2019 discharge planning is working on the placement locations. At the present time it will take several more days secure long-term placement. Patient is medically stable 04/11/2019 patient's discharge paperwork has been completed, now waiting for results. Patient's IVs have been exhausted we will switch to either IM or p.o.'s Reason For Visit: ALTERED MENTAL STATUS,ATAXIA, CVA HYPERTENSION Physical Exam Vital Signs: Temp Pulse Resp BP Pulse Ox 97.6 F 88 12 142/69 H 100 04/11/19 03:55 04/11/19 03:55 04/11/19 03:55 04/11/19 03:55 04/11/19 03:55 Intake & Output 04/10/19 04/11/19 04/12/19 06:59 06:59 06:59 Intake Total 960 Balance 960 Weight 62.6 kg 61.7 kg General appearance: PRESENT: no acute distress, disheveled - Patient in a diaper, other - Patient mumbles incoherently and stares in no particular direction, does not track with his eyes voice Respiratory exam: PRESENT: clear to auscultation jackie. ABSENT: rales, rhonchi, wheezes Cardiovascular exam: PRESENT: RRR. ABSENT: diastolic murmur, rubs, systolic murmur Neurological exam: PRESENT: alert, altered, other - he does not know who he is or where he is at least does not answer questions Results Laboratory Results: 04/03/19 11:38 04/07/19 10:30 03/27/19 03/27/19 16:32 16:32 Creatine Kinase 54 L CK-MB (CK-2) < 0.22 Impressions: Brain MRI with MRA 03/27/19 00:00 IMPRESSION: Diminutive appearance of right vertebral artery, incompletely assessed. Otherwise no significant vascular abnormalities CAROTID STENOSIS REFERENCE USING NASCET CRITERIA: % ICA stenosis = (1 - narrowest ICA diameter/diameter of distal cervical ICA) x 100. Mild - <50% stenosis. Moderate - 50-69% stenosis. Severe - 70-94% stenosis. Near occlusion - 95-99% stenosis. Occluded - 100% stenosis. Head MRI 03/27/19 00:00 IMPRESSION: No acute intracranial findings. Head CT 03/27/19 16:05 IMPRESSION: MILD CHRONIC CHANGES OF ATROPHY AND MICROVASCULAR ISCHEMIA. NO AC GEORGE PROCESS. EVIDENCE OF ACUTE STROKE: NO. Carotid Doppler Study 03/30/19 00:00 IMPRESSION: 50 to 69% diameter narrowing by velocity criteria right proximal ICA No flow significant stenosis left carotid bifurcation Antegrade pulsatile vertebral artery flow bilaterally, left vertebral artery is dominant Assessment and Plan - Diagnosis (1) CVA (cerebral vascular accident) Is this a current diagnosis for this admission?: Yes Plan: Patient has CVA 6 years ago and was actually admitted here at [facility]. This left him with a residual left lower extremity weakness some speech dysarthria. According to the sister in the last day or 2 he is seemed weaker than normal and more confused. According to a coworker it is been going on about a week now She emphatically denies any drugs no marijuana no alcohol, no illegal substances. Patient does admit to smoking about 10 cigarettes/day. 03/28/2019 MRI, MRA, CT of the head show no acute findings. patient is neurologically stable today, patient states he feels less confused as well as stronger 03/29/2019-MRI and CAT scan of the brain shows no acute findings. Patient remains confused after becoming extremely violent yesterday and had to be put in four-point restraints. Also getting 1 mg of Ativan every 4 hours. Stable from a CVA standpoint 03/30/2019-continue to follow patient. Patient less violent and able to answer his to his name at this time. He continues with two-point restraints and Ativan as needed. 04/07/2019 patient remains confused probably based on dementia secondary to alcohol and vascular changes. No focal deficits.. 04/08/2019 he is neurologically stable, and basically unchanged patient is not violent or hostile or aggressive. Patient does not need restraints 04/11/2019 no focal deficits but clearly demented. This is probably acute on chronic, no acute pathophysiology to explain (2) Acute renal failure Qualifiers: Acute renal failure type: unspecified Qualified Code(s): N17.9 - Acute kidney failure, unspecified Is this a current diagnosis for this admission?: Yes Plan: Resolved with IV fluids. 04/07/2019 patient's renal functions are stable yesterday potassium 4.1, BUN of 10 creatinine 0.84. Repeat electrolytes today. 04/08/2019 patient's sodium is 142 potassium 3.5 BUN of 26 creatinine 1.02. Glucose 145. Patient is stable 04/11/2019 patient's previous labs are stable we will check another set today reparation for discharge next week hopefully. No IV site now (3) Dehydration Is this a current diagnosis for this admission?: Yes Plan: Resolved. DCed IV fluids. 04/08/2019 patient only appears to be taking in around 350 mL's per day, will ask nursing consult dietary for long-term management. 04/11/2019 patient will only eat or drink when tested or encouraged. Skin does not appear to be dehydrated - Time Time Spent with patient: 25-34 minutes
[2019-04-11] MEDS ORDERED: ZIPRASIDONE MESYLATE INJ/PF 20 MG SDV IM PRN (09:20)
[2019-04-11] MEDS ORDERED: LORAZEPAM 1 MG TABLET PO PRN (09:22)
[2019-04-11] MEDS: DOCUSATE SODIUM 100 MG CAPSULE PO SCH (09:50)
[2019-04-11] MEDS: POTASSIUM CHLORIDE 10 MEQ CAPSULE.ER PO SCH ×2 (09:50→21:26)
[2019-04-11] MEDS: AMLODIPINE BESYLATE 10 MG TABLET PO SCH (09:50)
[2019-04-11] MEDS: FENOFIBRATE NANOCRYSTALLIZED 145 MG TABLET PO SCH (09:50)
[2019-04-11] MEDS: ENOXAPARIN SODIUM INJ 40 MG/0.4 ML DISP.SYRIN SUBCUT SCH (09:50)
[2019-04-11] MEDS: FAMOTIDINE 20 MG TABLET PO SCH ×2 (09:50→21:26)
[2019-04-11] MEDS: DIVALPROEX SODIUM 250 MG TAB.SR.24H PO SCH ×2 (09:50→21:24)
[2019-04-11] MEDS: DIAZEPAM 5 MG TABLET PO SCH (21:26)
[2019-04-11] MEDS: ATORVASTATIN CALCIUM 40 MG TABLET PO SCH (21:26)
[2019-04-11] MEDS: ASPIRIN 81 MG TABLET, ENT COATED PO SCH (21:26)
[2019-04-11] MEDS: LORAZEPAM INJ 2 MG/1 ML VIAL IV PRN (23:47)
[2019-04-12] MEDS: LORAZEPAM INJ 2 MG/1 ML VIAL IV PRN ×2 (05:03→20:56)
[2019-04-12 09:11] LABS: ABSOLUTE BASOPHILS # (AUTO) 0.1 10^3/uL (0.0-0.2); ABSOLUTE EOSINOPHILS # (AUTO) 0.2 10^3/uL (0.0-0.6); ABSOLUTE LYMPHOCYTES (AUTO) 1.6 10^3/uL (0.5-4.7); ABSOLUTE MONOCYTES (AUTO) 0.7 10^3/uL (0.1-1.4); ABSOLUTE NEUT (AUTO) 5.9 10^3/uL (1.7-8.2); BASOPHILS % (AUTO) 0.7 % (0-2); EOSINOPHILS % (AUTO) 2.4 % (0-6); HEMATOCRIT 37.4 % (37.9-51.0); HEMOGLOBIN 12.5 g/dL (13.5-17.0); LYMPHOCYTES % (AUTO) 19.3 % (13-45); MEAN CORPUSCULAR HEMOGLOBIN 30.1 pg (27.0-33.4); MEAN CORPUSCULAR HGB CONC 33.5 g/dL (32.0-36.0); MEAN CORPUSCULAR VOLUME 90 fl (80-97); MONOCYTES % (AUTO) 8.3 % (3-13); PLATELET COUNT 443 10^3/uL (150-450); RED BLOOD COUNT 4.16 10^6/uL (4.35-5.55); RED CELL DISTRIBUTION WIDTH 15.5 % (11.5-14.0); SEGMENTED NEUTROPHILS % (AUTO) 69.3 % (42-78); TOTAL CELLS COUNTED % (AUTO) 100 %; WHITE BLOOD COUNT 8.5 10^3/uL (4.0-10.5)
[2019-04-12 09:27] LABS: ANION GAP 12 (5-19); BLOOD UREA NITROGEN 39 mg/dL (7-20); CALCIUM 10.2 mg/dL (8.4-10.2); CARBON DIOXIDE 20 mmol/L (22-30); CHLORIDE 113 mmol/L (98-107); GLUCOSE 91 mg/dL (75-110); POTASSIUM 5.2 mmol/L (3.6-5.0)
[2019-04-12] MEDS: DIVALPROEX SODIUM 250 MG TAB.SR.24H PO SCH ×2 (09:42→23:23)
[2019-04-12] MEDS: DOCUSATE SODIUM 100 MG CAPSULE PO SCH (09:42)
[2019-04-12] MEDS: AMLODIPINE BESYLATE 10 MG TABLET PO SCH (09:43)
[2019-04-12] MEDS: POTASSIUM CHLORIDE 10 MEQ CAPSULE.ER PO SCH ×2 (09:43→23:23)
[2019-04-12] MEDS: FAMOTIDINE 20 MG TABLET PO SCH ×2 (09:43→23:23)
[2019-04-12] MEDS: FENOFIBRATE NANOCRYSTALLIZED 145 MG TABLET PO SCH (09:44)
[2019-04-12] MEDS ORDERED: NORMAL SALINE 1000 ML 1,000 ML IV PRN (11:10)
--- NOTE | 2019-04-12 11:14 | PDOC PROGRESS REPORT ---
Subjective Progress Note for:: 04/12/19 Subjective:: 03/28/2019. He was admitted to hospital yesterday for confusion ataxia and lightheadedness. Patient's neurology work-up so far has been negative MRI of the brain negative MRI of the brain negative CT of the head scan only chronic ischemic changes no acute changes. Graph patient reports he is feeling stronger today also is alert and oriented. Possibly DC to home tomorrow if renal function continues to improve 04/07/2019 waiting for placement patient waiting for [facility]. Patient remains confused. Patient has been denied at [place] as of yesterday, 04/06/19. 04/08/2019 discharge planning is working on the placement locations. At the present time it will take several more days secure long-term placement. Patient is medically stable 04/11/2019 patient's paperwork for discharge has been completed, now waiting for results. Patient's IVs have been exhausted we will switch to either IM or p.o.'s 04/12/2019 patient had an IV started last night for IV meds again I will try to stress to nursing to give patient IM's for p.o.'s. However as long as we have the IV now I rechecked his electrolytes his potassium slightly elevated 5.2 BUN is slightly up at 39 and creatinine slightly elevated 1.31, I will give patient a liter fluids today since he is not taking p.o.'s well Reason For Visit: ALTERED MENTAL STATUS,ATAXIA, CVA HYPERTENSION Physical Exam Vital Signs: Temp Pulse Resp BP Pulse Ox 97.5 F 93 20 131/81 H 98 04/12/19 08:04 04/12/19 08:04 04/12/19 08:04 04/12/19 08:04 04/12/19 08:04 Intake & Output 04/11/19 04/12/19 04/13/19 06:59 06:59 06:59 Intake Total 960 1320 Output Total 3 Balance 960 1317 Weight 61.7 kg 61.7 kg General appearance: PRESENT: no acute distress, other - Stares off into space however will sometimes make eye contact, but does not communicate except for mumbling Respiratory exam: PRESENT: clear to auscultation jackie. ABSENT: rales, rhonchi, wheezes Cardiovascular exam: PRESENT: RRR. ABSENT: diastolic murmur, rubs, systolic murmur Neurological exam: PRESENT: altered Results Laboratory Results: 04/12/19 09:02 04/12/19 09:02 04/12/19 04/12/19 09:02 09:02 WBC 8.5 RBC 4.16 L Hgb 12.5 L Hct 37.4 L MCV 90 MCH 30.1 MCHC 33.5 RDW 15.5 H Plt Count 443 Seg Neutrophils % 69.3 Sodium 144.6 Potassium 5.2 H Chloride 113 H Carbon Dioxide 20 L Anion Gap 12 BUN 39 H Creatinine 1.31 H Est GFR ( Amer) > 60 Glucose 91 Calcium 10.2 03/27/19 03/27/19 16:32 16:32 Creatine Kinase 54 L CK-MB (CK-2) < 0.22 Impressions: Brain MRI with MRA 03/27/19 00:00 IMPRESSION: Diminutive appearance of right vertebral artery, incompletely assessed. Otherwise no significant vascular abnormalities CAROTID STENOSIS REFERENCE USING NASCET CRITERIA: % ICA stenosis = (1 - narrowest ICA diameter/diameter of distal cervical ICA) x 100. Mild - <50% stenosis. Moderate - 50-69% stenosis. Severe - 70-94% stenosis. Near occlusion - 95-99% stenosis. Occluded - 100% stenosis. Head MRI 03/27/19 00:00 IMPRESSION: No acute intracranial findings. Head CT 03/27/19 16:05 IMPRESSION: MILD CHRONIC CHANGES OF ATROPHY AND MICROVASCULAR ISCHEMIA. NO AC GEORGE PROCESS. EVIDENCE OF ACUTE STROKE: NO. Carotid Doppler Study 03/30/19 00:00 IMPRESSION: 50 to 69% diameter narrowing by velocity criteria right proximal ICA No flow significant stenosis left carotid bifurcation Antegrade pulsatile vertebral artery flow bilaterally, left vertebral artery is dominant Assessment and Plan - Diagnosis (1) CVA (cerebral vascular accident) Is this a current diagnosis for this admission?: Yes Plan: Patient has CVA 6 years ago and was actually admitted here at [facility]. This left him with a residual left lower extremity weakness some speech dysarthria. According to the sister in the last day or 2 he is seemed weaker than normal and more confused. According to a coworker it is been going on about a week now She emphatically denies any drugs no marijuana no alcohol, no illegal substances. Patient does admit to smoking about 10 cigarettes/day. 03/28/2019 MRI, MRA, CT of the head show no acute findings. patient is neurologically stable today, patient states he feels less confused as well as stronger 03/29/2019-MRI and CAT scan of the brain shows no acute findings. Patient remains confused after becoming extremely violent yesterday and had to be put in four-point restraints. Also getting 1 mg of Ativan every 4 hours. Stable from a CVA standpoint 03/30/2019-continue to follow patient. Patient less violent and able to answer his to his name at this time. He continues with two-point restraints and Ativan as needed. 04/07/2019 patient remains confused probably based on dementia secondary to alcohol and vascular changes. No focal deficits.. 04/08/2019 he is neurologically stable, and basically unchanged patient is not violent or hostile or aggressive. Patient does not need restraints 04/11/2019 no focal deficits but clearly demented. This is probably acute on chronic, no acute pathophysiology to explain. 04/12/2019 patient appears to be in a "locked-in syndrome "we will rescan head today. No focal deficits (2) Acute renal failure Qualifiers: Acute renal failure type: unspecified Qualified Code(s): N17.9 - Acute kidney failure, unspecified Is this a current diagnosis for this admission?: Yes Plan: Resolved with IV fluids. 04/07/2019 patient's renal functions are stable yesterday potassium 4.1, BUN of 10 creatinine 0.84. Repeat electrolytes today. 04/08/2019 patient's sodium is 142 potassium 3.5 BUN of 26 creatinine 1.02. Glucose 145. Patient is stable 04/11/2019 patient's previous labs are stable we will check another set today reparation for discharge next week hopefully. No IV site now 04/12/2019 his BUN and creatinine and potassium are slightly elevated we will give 1 L of fluid today (3) Dehydration Is this a current diagnosis for this admission?: Yes Plan: Resolved. DCed IV fluids. 04/08/2019 patient only appears to be taking in around 350 mL's per day, will ask nursing consult dietary for long-term management. 04/11/2019 patient will only eat or drink when tested or encouraged. Skin does not appear to be dehydrated 04/12/2019 BUN/creatinine and potassium are slightly elevated we will give 1 L of IV fluids today. Patient not taking p.o.'s well - Time Time Spent with patient: 25-34 minutes
[2019-04-12] MEDS: ENOXAPARIN SODIUM INJ 40 MG/0.4 ML DISP.SYRIN SUBCUT SCH (13:29)
--- NOTE | 2019-04-12 13:44 | RADIOLOGY REPORT (SQ) ---
EXAM DESCRIPTION: CT HEAD WITHOUT COMPLETED DATE/TIME: 04/12/2019 1:09 pm REASON FOR STUDY: syncope COMPARISON: None. TECHNIQUE: Axial images acquired through the brain without intravenous contrast. Images reviewed wi th bone, brain and subdural windows. Images stored on PACS. All CT scanners at this facility use dose modulation, iterative reconstruction, and/or weight based d osing when appropriate to reduce radiation dose to as low as reasonably achievable (ALARA). [facility]: Dose Right [facility]: CareDose [facility]: Dose Right [facility]: Teradose 4D [facility]: Smart Vamo RADIATION DOSE: CT Rad equipment meets quality standard of care and radiation dose reduction techniq ues were employed. CTDIvol: 53.2 mGy. DLP: 991 mGy-cm. mGy. LIMITATIONS: None. FINDINGS: VENTRICLES: Prominent. CEREBRUM: No masses. No hemorrhage. No midline shift. Areas of low density in the white matter mos t likely due to chronic micro-vascular ischemic change. No evidence for acute infarction. CEREBELLUM: No masses. No hemorrhage. Old lacunar infarct left fer. No evidence for acute infarct ion. EXTRAAXIAL SPACES: Mild age-related involutional change. No fluid collections. No masses. ORBITS AND GLOBE: No intra- or extraconal masses. Normal contour of globe without masses. CALVARIUM: No fracture. PARANASAL SINUSES: No fluid or mucosal thickening. SOFT TISSUES: No mass or hematoma. OTHER: No other significant finding. IMPRESSION: Chronic ischemic changes. EVIDENCE OF ACUTE STROKE: NO. TECHNICAL DOCUMENTATION: JOB ID: [id number] Quality ID # [id number]: Final reports with documentation of one or more dose reduction techniques (e.g., Au tomated exposure control, adjustment of the mA and/or kV according to patient size, use of iterative reconstruction technique) 2010 [employer]- All Rights Reserved Reading location - IP/workstation name: [email or web address]
[2019-04-12] MEDS: DIAZEPAM 5 MG TABLET PO SCH (23:23)
[2019-04-12] MEDS: ATORVASTATIN CALCIUM 40 MG TABLET PO SCH (23:23)
[2019-04-12] MEDS: ASPIRIN 81 MG TABLET, ENT COATED PO SCH (23:23)
[2019-04-13] MEDS: LORAZEPAM INJ 2 MG/1 ML VIAL IV PRN ×2 (01:45→03:50)
[2019-04-13] MEDS: POTASSIUM CHLORIDE 10 MEQ CAPSULE.ER PO SCH ×2 (08:59→22:33)
[2019-04-13] MEDS: DOCUSATE SODIUM 100 MG CAPSULE PO SCH (08:59)
[2019-04-13] MEDS: FAMOTIDINE 20 MG TABLET PO SCH ×2 (09:00→22:34)
[2019-04-13] MEDS: FENOFIBRATE NANOCRYSTALLIZED 145 MG TABLET PO SCH (09:00)
[2019-04-13] MEDS: ENOXAPARIN SODIUM INJ 40 MG/0.4 ML DISP.SYRIN SUBCUT SCH (09:00)
[2019-04-13] MEDS: AMLODIPINE BESYLATE 10 MG TABLET PO SCH (09:00)
[2019-04-13] MEDS: DIVALPROEX SODIUM 250 MG TAB.SR.24H PO SCH ×2 (09:12→22:33)
--- NOTE | 2019-04-13 14:26 | PDOC PROGRESS REPORT ---
Subjective Progress Note for:: 04/13/19 Subjective:: 03/28/2019. He was admitted to hospital yesterday for confusion ataxia and lightheadedness. Patient's neurology work-up so far has been negative MRI of the brain negative MRI of the brain negative CT of the head scan only chronic ischemic changes no acute changes. Graph patient reports he is feeling stronger today also is alert and oriented. Possibly DC to home tomorrow if renal function continues to improve 04/07/2019 waiting for placement patient waiting for [facility]. Patient remains confused. Patient has been denied at [place] as of yesterday, 04/06/19. 04/08/2019 discharge planning is working on the placement locations. At the present time it will take several more days secure long-term placement. Patient is medically stable 04/11/2019 patient's paperwork for discharge has been completed, now waiting for results. Patient's IVs have been exhausted we will switch to either IM or p.o.'s 04/12/2019 patient had an IV started last night for IV meds again I will try to stress to nursing to give patient IM's for p.o.'s. However as long as we have the IV now I rechecked his electrolytes his potassium slightly elevated 5.2 BUN is slightly up at 39 and creatinine slightly elevated 1.31, I will give patient a liter fluids today since he is not taking p.o.'s well 04/13/2019 CT head scan done yesterday shows chronic ischemic changes. Patient appears to have a "locked-in syndrome "we are awaiting placement Reason For Visit: ALTERED MENTAL STATUS,ATAXIA, CVA HYPERTENSION Physical Exam Vital Signs: Temp Pulse Resp BP Pulse Ox 97.5 F 83 16 118/81 99 04/13/19 07:57 04/13/19 07:57 04/13/19 07:57 04/13/19 07:57 04/13/19 07:57 Intake & Output 04/12/19 04/13/19 04/14/19 06:59 06:59 06:59 Intake Total 1320 1240 720 Output Total 3 Balance 1317 1240 720 Weight 61.7 kg 64 kg General appearance: PRESENT: no acute distress, other - Patient is lying in bed staring off in space, although he does state that he recognizes me Respiratory exam: PRESENT: clear to auscultation jackie. ABSENT: rales, rhonchi, wheezes Cardiovascular exam: PRESENT: RRR. ABSENT: diastolic murmur, rubs, systolic murmur Neurological exam: PRESENT: altered, awake Psychiatric exam: PRESENT: appropriate affect, normal mood, other - No sign of agitation during the daytime although sometimes at night he becomes agitated. ABSENT: homicidal ideation, suicidal ideation Results Laboratory Results: 04/12/19 09:02 04/12/19 09:02 03/27/19 03/27/19 16:32 16:32 Creatine Kinase 54 L CK-MB (CK-2) < 0.22 Impressions: Brain MRI with MRA 03/27/19 00:00 IMPRESSION: Diminutive appearance of right vertebral artery, incompletely assessed. Otherwise no significant vascular abnormalities CAROTID STENOSIS REFERENCE USING NASCET CRITERIA: % ICA stenosis = (1 - narrowest ICA diameter/diameter of distal cervical ICA) x 100. Mild - <50% stenosis. Moderate - 50-69% stenosis. Severe - 70-94% stenosis. Near occlusion - 95-99% stenosis. Occluded - 100% stenosis. Head MRI 03/27/19 00:00 IMPRESSION: No acute intracranial findings. Carotid Doppler Study 03/30/19 00:00 IMPRESSION: 50 to 69% diameter narrowing by velocity criteria right proximal ICA No flow significant stenosis left carotid bifurcation Antegrade pulsatile vertebral artery flow bilaterally, left vertebral artery is dominant Head CT 04/12/19 11:13 IMPRESSION: Chronic ischemic changes. EVIDENCE OF ACUTE STROKE: NO. Assessment and Plan - Diagnosis (1) CVA (cerebral vascular accident) Is this a current diagnosis for this admission?: Yes Plan: Patient has CVA 6 years ago and was actually admitted here at [place]. This left him with a residual left lower extremity weakness some speech dysarthria. According to the sister in the last day or 2 he is seemed weaker than normal and more confused. According to a coworker it is been going on about a week now She emphatically denies any drugs no marijuana no alcohol, no illegal substances. Patient does admit to smoking about 10 cigarettes/day. 03/28/2019 MRI, MRA, CT of the head show no acute findings. patient is ne urologically stable today, patient states he feels less confused as well as stronger 03/29/2019-MRI and CAT scan of the brain shows no acute findings. Patient remains confused after becoming extremely violent yesterday and had to be put in four-point restraints. Also getting 1 mg of Ativan every 4 hours. Stable from a CVA standpoint 03/30/2019-continue to follow patient. Patient less violent and able to answer his to his name at this time. He continues with two-point restraints and Ativan as needed. 04/07/2019 patient remains confused probably based on dementia secondary to alcohol and vascular changes. No focal deficits.. 04/08/2019 he is neurologically stable, and basically unchanged patient is not violent or hostile or aggressive. Patient does not need restraints 04/11/2019 no focal deficits but clearly demented. This is probably acute on chronic, no acute pathophysiology to explain. 04/12/2019 patient appears to be in a "locked-in syndrome "we will rescan head today. No focal deficits 04/13/2019 he has scan shows no acute findings only chronic ischemic changes (2) Acute renal failure Qualifiers: Acute renal failure type: unspecified Qualified Code(s): N17.9 - Acute kidney failure, unspecified Is this a current diagnosis for this admission?: Yes Plan: Resolved with IV fluids. 04/07/2019 patient's renal functions are stable yesterday potassium 4.1, BUN of 10 creatinine 0.84. Repeat electrolytes today. 04/08/2019 patient's sodium is 142 potassium 3.5 BUN of 26 creatinine 1.02. Glucose 145. Patient is stable 04/11/2019 patient's previous labs are stable we will check another set today reparation for discharge next week hopefully. No IV site now 04/12/2019 his BUN and creatinine and potassium are slightly elevated we will give 1 L of fluid today 04/13/2019 we will recheck electrolytes tomorrow morning patient had 1 L IV of fluid yesterday (3) Dehydration Is this a current diagnosis for this admission?: Yes Plan: Resolved. DCed IV fluids. 04/08/2019 patient only appears to be taking in around 350 mL's per day, will ask nursing consult dietary for long-term management. 04/11/2019 patient will only eat or drink when tested or encouraged. Skin does not appear to be dehydrated 04/12/2019 BUN/creatinine and potassium are slightly elevated we will give 1 L of IV fluids today. Patient not taking p.o.'s well 04/13/2019 we will recheck electrolytes tomorrow. Due to patient's neurologic status he is not drinking or eating well - Time Time Spent with patient: 25-34 minutes
[2019-04-13] MEDS: ASPIRIN 81 MG TABLET, ENT COATED PO SCH (22:33)
[2019-04-13] MEDS: ATORVASTATIN CALCIUM 40 MG TABLET PO SCH (22:33)
[2019-04-13] MEDS: DIAZEPAM 5 MG TABLET PO SCH (22:33)
[2019-04-14 06:27] LABS: ANION GAP 11 (5-19); BLOOD UREA NITROGEN 39 mg/dL (7-20); CALCIUM 9.9 mg/dL (8.4-10.2); CARBON DIOXIDE 24 mmol/L (22-30); CHLORIDE 109 mmol/L (98-107); GLUCOSE 92 mg/dL (75-110); POTASSIUM 4.4 mmol/L (3.6-5.0)
[2019-04-14] MEDS ORDERED: NORMAL SALINE 1000 ML 1,000 ML IV PRN (08:46)
[2019-04-14] MEDS: DIVALPROEX SODIUM 250 MG TAB.SR.24H PO SCH ×2 (10:03→21:42)
[2019-04-14] MEDS: ENOXAPARIN SODIUM INJ 40 MG/0.4 ML DISP.SYRIN SUBCUT SCH (10:03)
[2019-04-14] MEDS: POTASSIUM CHLORIDE 10 MEQ CAPSULE.ER PO SCH ×2 (10:03→21:42)
[2019-04-14] MEDS: CLONIDINE 0.1 MG/24 HR PATCH.TDWK TD SCH (10:10)
[2019-04-14] MEDS: FENOFIBRATE NANOCRYSTALLIZED 145 MG TABLET PO SCH (10:13)
[2019-04-14] MEDS: AMLODIPINE BESYLATE 10 MG TABLET PO SCH (10:13)
[2019-04-14] MEDS: FAMOTIDINE 20 MG TABLET PO SCH ×2 (10:13→21:43)
[2019-04-14] MEDS: DOCUSATE SODIUM 100 MG CAPSULE PO SCH (10:13)
[2019-04-14] MEDS: RISPERIDONE 0.25 MG TABLET PO SCH (17:04)
--- NOTE | 2019-04-14 19:07 | PDOC PROGRESS REPORT ---
Subjective Progress Note for:: 04/14/19 Subjective:: Patient is a 58-year-old male with a past medical history significant for prior CVA, vascular dementia, Hypertension, hyperlipidemia, who was admitted 03/27/2019 for WAQAS. The patient was seen on afternoon rounds. He was found sitting up to the recliner, comfortably on room air. He makes eye contact and asks me if I can help him find his receipt. He does not answer any other questions. He no longer makes eye contact or follows commands. Per nursing he intermittently follows directions, but is unable to answer questions enough to assess for orientation. ROS is limited secondary to mental status changes. He does appear to be comfortable and not in any acute distress. Unfortunately, no family members are present at this time. No concerns per nursing. Reason For Visit: ALTERED MENTAL STATUS,ATAXIA, CVA HYPERTENSION Physical Exam Vital Signs: Temp Pulse Resp BP Pulse Ox 97.6 F 76 17 132/89 H 100 04/14/19 08:13 04/14/19 08:13 04/14/19 08:13 04/14/19 08:13 04/14/19 08:13 Intake & Output 04/13/19 04/14/19 04/15/19 06:59 06:59 06:59 Intake Total 1240 1200 840 Balance 1240 1200 840 Weight 64 kg 64 kg General appearance: PRESENT: no acute distress, thin, well-developed Head exam: PRESENT: atraumatic, normocephalic Eye exam: PRESENT: conjunctiva pink, EOMI, PERRLA. ABSENT: scleral icterus Ear exam: PRESENT: normal external ear exam Mouth exam: PRESENT: moist, tongue midline Teeth exam: PRESENT: poor dentation Neck exam: ABSENT: carotid bruit, JVD, lymphadenopathy, thyromegaly Respiratory exam: PRESENT: clear to auscultation jackie, symmetrical, unlabored. ABSENT: rales, rhonchi, wheezes Cardiovascular exam: PRESENT: RRR, +S2. ABSENT: diastolic murmur, rubs, systolic murmur Pulses: PRESENT: normal dorsalis pedis pul Vascular exam: PRESENT: normal capillary refill GI/Abdominal exam: PRESENT: normal bowel sounds, soft. ABSENT: distended, guarding, mass, organolmegaly, rebound, tenderness Rectal exam: PRESENT: deferred Extremities exam: PRESENT: full ROM. ABSENT: calf tenderness, clubbing, pedal edema Musculoskeletal exam: PRESENT: ambulatory Neurological exam: PRESENT: alert, awake, CN II-XII grossly intact, other - Confused statements; intermittently responsive to voice, does not follow directions.. ABSENT: motor sensory deficit Psychiatric exam: PRESENT: flat affect, normal mood. ABSENT: homicidal ideation, suicidal ideation Skin exam: PRESENT: dry, intact, warm. ABSENT: cyanosis, rash Results Laboratory Results: 04/12/19 09:02 04/14/19 05:30 04/14/19 05:30 Sodium 144.4 Potassium 4.4 Chloride 109 H Carbon Dioxide 24 Anion Gap 11 BUN 39 H Creatinine 1.30 H Est GFR ( Amer) > 60 Glucose 92 Calcium 9.9 03/27/19 03/27/19 16:32 16:32 Creatine Kinase 54 L CK-MB (CK-2) < 0.22 Impressions: Brain MRI with MRA 03/27/19 00:00 IMPRESSION: Diminutive appearance of right vertebral artery, incompletely assessed. Otherwise no significant vascular abnormalities CAROTID STENOSIS REFERENCE USING NASCET CRITERIA: % ICA stenosis = (1 - narrowest ICA diameter/diameter of distal cervical ICA) x 100. Mild - <50% stenosis. Moderate - 50-69% stenosis. Severe - 70-94% stenosis. Near occlusion - 95-99% stenosis. Occluded - 100% stenosis. Head MRI 03/27/19 00:00 IMPRESSION: No acute intracranial findings. Carotid Doppler Study 03/30/19 00:00 IMPRESSION: 50 to 69% diameter narrowing by velocity criteria right proximal ICA No flow significant stenosis left carotid bifurcation Antegrade pulsatile vertebral artery flow bilaterally, left vertebral artery is dominant Head CT 04/12/19 11:13 IMPRESSION: Chronic ischemic changes. EVIDENCE OF ACUTE STROKE: NO. Assessment and Plan - Diagnosis (1) Encephalopathy Is this a current diagnosis for this admission?: Yes Plan: Most likely vascular dementia with delirium; likely at new baseline. Patient's sister reported baseline confusion to previous provider. Exacerbated by hospitalization and acute illness. Mental health consultation reviewed; medication recommendations implemented. Depakote has been increased to 500 mg p.o. every 12. Have added Risperdal 0.25 mg twice daily. Start clonidine 0.1 mg transdermal patch. We will avoid benzodiazepines as able; will decrease nightly Valium. (2) Vascular dementia Is this a current diagnosis for this admission?: Yes Plan: Supportive care; remaining management as above. (3) Hypertension Is this a current diagnosis for this admission?: Yes Plan: Normotensive blood pressures today. Continue amlodipine 10 mg daily. Have added clonidine patch for behavioral disturbance; monitor for effect on blood pressure. Currently on a regular diet. (4) History of CVA (cerebrovascular accident) Is this a current diagnosis for this admission?: Yes Plan: Continue aspirin and statin therapy. Managed blood pressures with home medication regiment. (5) Acute renal failure Qualifiers: Acute renal failure type: unspecified Qualified Code(s): N17.9 - Acute kidney failure, unspecified Is this a current diagnosis for this admission?: Yes Plan: Resolved. Patient was admitted with a creatinine of 3.61, now 1.30. Close to baseline. Patient does have adequate p.o. intake. We will avoid nephrotoxic medications as able. Continue gentle IV fluids. We will monitor with intermittent chemistries. - Time Time Spent with patient: 15-24 minutes Medications reviewed and adjusted accordingly: Yes Anticipated discharge: SNF - [facility]: when bed available
--- NOTE | 2019-04-14 19:08 | Progress Note Acknowledgement ---
Progress Note Acknowledgement Progess Note Acknowledgement: I, the undersigned member of the medical staff with appropriate privileges and with supervisory authority over Anali Gould, a [facility] allied health professional, acknowledge that I have reviewed the progress notes entered on this patient, and in my professional judgment believe that the assessment made and/or any care evidenced was appropriate
[2019-04-14] MEDS: LORAZEPAM INJ 2 MG/1 ML VIAL IV PRN (19:25)
[2019-04-14] MEDS: ATORVASTATIN CALCIUM 40 MG TABLET PO SCH (21:43)
[2019-04-14] MEDS: ASPIRIN 81 MG TABLET, ENT COATED PO SCH (21:43)
[2019-04-14] MEDS ORDERED: DIAZEPAM 5 MG TABLET PO SCH (22:00)
[2019-04-15] MEDS: RISPERIDONE 0.25 MG TABLET PO SCH ×2 (08:49→18:52)
[2019-04-15] MEDS: DIVALPROEX SODIUM 250 MG TAB.SR.24H PO SCH ×2 (11:06→21:54)
[2019-04-15] MEDS: FENOFIBRATE NANOCRYSTALLIZED 145 MG TABLET PO SCH (11:23)
[2019-04-15] MEDS: FAMOTIDINE 20 MG TABLET PO SCH ×2 (11:25→21:55)
[2019-04-15] MEDS: POTASSIUM CHLORIDE 10 MEQ CAPSULE.ER PO SCH ×2 (11:26→21:16)
[2019-04-15] MEDS: ENOXAPARIN SODIUM INJ 40 MG/0.4 ML DISP.SYRIN SUBCUT SCH (11:33)
[2019-04-15] MEDS: AMLODIPINE BESYLATE 10 MG TABLET PO SCH (11:36)
[2019-04-15] MEDS: DOCUSATE SODIUM 100 MG CAPSULE PO SCH (11:36)
[2019-04-15] MEDS: LORAZEPAM INJ 2 MG/1 ML VIAL IV PRN (13:02)
--- NOTE | 2019-04-15 14:29 | PDOC PROGRESS REPORT ---
Subjective Progress Note for:: 04/15/19 Subjective:: Patient is a 58-year-old male with a past medical history significant for prior CVA, vascular dementia, Hypertension, hyperlipidemia, who was admitted 03/27/2019 for WAQAS. The patient was seen on morning rounds with his sister present. He was found resting in bed, comfortably, on room air. He was socially appropriate and conversational today, but clearly confused. He is asking me to assist him with building a wood project today. He does appear to be comfortable and not in any acute distress. ROS is limited secondary to mental status. Patient has no concerns. Sister has no questions or concerns today. No concerns per nursing. Reason For Visit: ALTERED MENTAL STATUS,ATAXIA, CVA HYPERTENSION Physical Exam Vital Signs: Temp Pulse Resp BP Pulse Ox 97.5 F 70 20 99/61 L 96 04/15/19 03:32 04/15/19 03:32 04/15/19 03:32 04/15/19 03:32 04/15/19 03:32 Intake & Output 04/14/19 04/15/19 04/16/19 06:59 06:59 06:59 Intake Total 1200 840 Balance 1200 840 Weight 64 kg 62.3 kg General appearance: PRESENT: no acute distress, cooperative, thin, well- developed, well-nourished Head exam: PRESENT: atraumatic, normocephalic Eye exam: PRESENT: conjunctiva pink, EOMI, PERRLA. ABSENT: scleral icterus Ear exam: PRESENT: normal external ear exam Mouth exam: PRESENT: moist, tongue midline Neck exam: ABSENT: carotid bruit, JVD, lymphadenopathy, thyromegaly Respiratory exam: PRESENT: clear to auscultation jackie, symmetrical, unlabored. ABSENT: rales, rhonchi, wheezes Cardiovascular exam: PRESENT: RRR, +S1, +S2. ABSENT: diastolic murmur, rubs, systolic murmur Pulses: PRESENT: normal dorsalis pedis pul Vascular exam: PRESENT: normal capillary refill GI/Abdominal exam: PRESENT: normal bowel sounds, soft. ABSENT: distended, guarding, mass, organolmegaly, rebound, tenderness Rectal exam: PRESENT: deferred Extremities exam: PRESENT: full ROM. ABSENT: calf tenderness, clubbing, pedal edema Musculoskeletal exam: PRESENT: ambulatory Neurological exam: PRESENT: alert, awake, oriented to person, CN II-XII grossly intact, other - Conversational, socially appropriate. Confused. ABSENT: oriented to place, oriented to time, oriented to situation, motor sensory deficit Psychiatric exam: PRESENT: appropriate affect, normal mood. ABSENT: homicidal ideation, suicidal ideation Skin exam: PRESENT: dry, intact, warm. ABSENT: cyanosis, rash Results Laboratory Results: 04/12/19 09:02 04/14/19 05:30 03/27/19 03/27/19 16:32 16:32 Creatine Kinase 54 L CK-MB (CK-2) < 0.22 Impressions: Brain MRI with MRA 03/27/19 00:00 IMPRESSION: Diminutive appearance of right vertebral artery, incompletely assessed. Otherwise no significant vascular abnormalities CAROTID STENOSIS REFERENCE USING NASCET CRITERIA: % ICA stenosis = (1 - narrowest ICA diameter/diameter of distal cervical ICA) x 100. Mild - <50% stenosis. Moderate - 50-69% stenosis. Severe - 70-94% stenosis. Near occlusion - 95-99% stenosis. Occluded - 100% stenosis. Head MRI 03/27/19 00:00 IMPRESSION: No acute intracranial findings. Carotid Doppler Study 03/30/19 00:00 IMPRESSION: 50 to 69% diameter narrowing by velocity criteria right proximal ICA No flow significant stenosis left carotid bifurcation Antegrade pulsatile vertebral artery flow bilaterally, left vertebral artery is dominant Head CT 04/12/19 11:13 IMPRESSION: Chronic ischemic changes. EVIDENCE OF ACUTE STROKE: NO. Assessment and Plan - Diagnosis (1) Encephalopathy Is this a current diagnosis for this admission?: Yes Plan: Likely at new baseline; most likely vascular dementia with delirium. Patient's sister reported baseline confusion to previous provider. Exacerbated by hospitalization and acute illness. Mental health consultation reviewed; medication recommendations implemented. Depakote has been increased to 500 mg p.o. every 12. Continue Risperdal 0.25 mg twice daily and clonidine 0.1 mg transdermal patch per mental health recommendations. We will avoid benzodiazepines as able; will discontinue scheduled nightly Valium. (2) Vascular dementia Is this a current diagnosis for this admission?: Yes Plan: Supportive care; remaining management as above. (3) Hypertension Is this a current diagnosis for this admission?: Yes Plan: Normotensive blood pressures today. Continue amlodipine 5 mg daily; decreased from 10 mg daily related to start of clonidine patch yesterday and resultant soft pressures. Have added clonidine patch for behavioral disturbance; monitor for effect on blood pressure. Currently on a regular diet. (4) History of CVA (cerebrovascular accident) Is this a current diagnosis for this admission?: Yes Plan: Continue aspirin and statin therapy. Managed blood pressures with home medication regiment. (5) Acute renal failure Qualifiers: Acute renal failure type: unspecified Qualified Code(s): N17.9 - Acute kidney failure, unspecified Is this a current diagnosis for this admission?: Yes Plan: Resolved. Patient was admitted with a creatinine of 3.61, now 1.30. Close to baseline. Patient does have adequate p.o. intake. Encourage p.o. fluids. We will avoid nephrotoxic medications as able. Continue gentle IV fluids. We will monitor with intermittent chemistries. - Time Time Spent with patient: 15-24 minutes Medications reviewed and adjusted accordingly: Yes Anticipated discharge: SNF - LTC/Memory Care Within: when bed available
[2019-04-15] MEDS: ASPIRIN 81 MG TABLET, ENT COATED PO SCH (21:55)
[2019-04-15] MEDS: ATORVASTATIN CALCIUM 40 MG TABLET PO SCH (21:55)
[2019-04-16] MEDS: LORAZEPAM INJ 2 MG/1 ML VIAL IV PRN (01:03)
[2019-04-16] MEDS ORDERED: LORAZEPAM INJ 2 MG/1 ML VIAL IM PRN (05:53)
[2019-04-16] MEDS: RISPERIDONE 0.25 MG TABLET PO SCH ×2 (09:05→18:52)
[2019-04-16] MEDS: FAMOTIDINE 20 MG TABLET PO SCH ×2 (10:41→21:41)
[2019-04-16] MEDS: AMLODIPINE BESYLATE 10 MG TABLET PO SCH (10:41)
[2019-04-16] MEDS: DOCUSATE SODIUM 100 MG CAPSULE PO SCH (10:42)
[2019-04-16] MEDS: DIVALPROEX SODIUM 250 MG TAB.SR.24H PO SCH ×2 (10:42→21:41)
[2019-04-16] MEDS: POTASSIUM CHLORIDE 10 MEQ CAPSULE.ER PO SCH ×2 (10:43→21:41)
[2019-04-16] MEDS: FENOFIBRATE NANOCRYSTALLIZED 145 MG TABLET PO SCH (10:44)
[2019-04-16] MEDS: ENOXAPARIN SODIUM INJ 40 MG/0.4 ML DISP.SYRIN SUBCUT SCH (10:52)
--- NOTE | 2019-04-16 15:11 | PDOC PROGRESS REPORT ---
Subjective Progress Note for:: 04/16/19 Subjective:: Patient is a 58-year-old male with a past medical history significant for prior CVA, vascular dementia, Hypertension, hyperlipidemia, who was admitted 03/27/2019 for WAQAS. The patient was seen on morning rounds. He was found resting in bed, comfortably, on room air. He was socially appropriate and conversational today, but clearly confused. He does appear to be comfortable and not in any acute distress. ROS is limited secondary to mental status. Patient has no concerns. No concerns per nursing. Reason For Visit: ALTERED MENTAL STATUS,ATAXIA, CVA HYPERTENSION Physical Exam Vital Signs: Temp Pulse Resp BP Pulse Ox 97.5 F 72 17 116/73 99 04/16/19 10:32 04/16/19 10:32 04/16/19 10:32 04/16/19 10:32 04/16/19 10:32 Intake & Output 04/15/19 04/16/19 04/17/19 06:59 06:59 06:59 Intake Total 840 840 120 Balance 840 840 120 Weight 62.3 kg 63.9 kg General appearance: PRESENT: no acute distress, cooperative, thin, well- developed, well-nourished Head exam: PRESENT: atraumatic, normocephalic Eye exam: PRESENT: conjunctiva pink, EOMI, PERRLA. ABSENT: scleral icterus Ear exam: PRESENT: normal external ear exam Mouth exam: PRESENT: moist, tongue midline Neck exam: ABSENT: carotid bruit, JVD, lymphadenopathy, thyromegaly Respiratory exam: PRESENT: clear to auscultation jackie, symmetrical, unlabored. ABSENT: rales, rhonchi, wheezes Cardiovascular exam: PRESENT: RRR, +S1, +S2. ABSENT: diastolic murmur, rubs, systolic murmur Pulses: PRESENT: normal dorsalis pedis pul Vascular exam: PRESENT: normal capillary refill GI/Abdominal exam: PRESENT: normal bowel sounds, soft. ABSENT: distended, guarding, mass, organolmegaly, rebound, tenderness Rectal exam: PRESENT: deferred Extremities exam: PRESENT: full ROM. ABSENT: calf tenderness, clubbing, pedal edema Neurological exam: PRESENT: alert, awake, oriented to person, CN II-XII grossly intact, other - Impulsive, poor safety awareness. Does intermittently follow directions.. ABSENT: oriented to place, oriented to time, oriented to situation, motor sensory deficit Psychiatric exam: PRESENT: appropriate affect, normal mood. ABSENT: homicidal ideation, suicidal ideation Skin exam: PRESENT: dry, intact, warm. ABSENT: cyanosis, rash Results Laboratory Results: 04/12/19 09:02 04/14/19 05:30 03/27/19 03/27/19 16:32 16:32 Creatine Kinase 54 L CK-MB (CK-2) < 0.22 Impressions: Brain MRI with MRA 03/27/19 00:00 IMPRESSION: Diminutive appearance of right vertebral artery, incompletely assessed. Otherwise no significant vascular abnormalities CAROTID STENOSIS REFERENCE USING NASCET CRITERIA: % ICA stenosis = (1 - narrowest ICA diameter/diameter of distal cervical ICA) x 100. Mild - <50% stenosis. Moderate - 50-69% stenosis. Severe - 70-94% stenosis. Near occlusion - 95-99% stenosis. Occluded - 100% stenosis. Head MRI 03/27/19 00:00 IMPRESSION: No acute intracranial findings. Carotid Doppler Study 03/30/19 00:00 IMPRESSION: 50 to 69% diameter narrowing by velocity criteria right proximal ICA No flow significant stenosis left carotid bifurcation Antegrade pulsatile vertebral artery flow bilaterally, left vertebral artery is dominant Head CT 04/12/19 11:13 IMPRESSION: Chronic ischemic changes. EVIDENCE OF ACUTE STROKE: NO. Assessment and Plan - Diagnosis (1) Encephalopathy Is this a current diagnosis for this admission?: Yes Plan: Likely at new baseline; most likely vascular dementia with delirium. Patient's sister reported baseline confusion to previous provider. Exacerbated by hospitalization and acute illness. Mental health consultation reviewed; medication recommendations implemented. Depakote has been increased to 500 mg p.o. every 12. Continue Risperdal 0.25 mg twice daily and clonidine 0.1 mg transdermal patch per mental health recommendations. We will avoid benzodiazepines as able; will discontinue scheduled nightly Valium. (2) Vascular dementia Is this a current diagnosis for this admission?: Yes Plan: Supportive care; remaining management as above. (3) Hypertension Is this a current diagnosis for this admission?: Yes Plan: Normotensive blood pressures today. Continue amlodipine 5 mg daily Have added clonidine patch for behavioral disturbance; monitor for effect on blood pressure. Currently on a regular diet. (4) History of CVA (cerebrovascular accident) Is this a current diagnosis for this admission?: Yes Plan: Continue aspirin and statin therapy. Managed blood pressures with home medication regiment. (5) Acute renal failure Qualifiers: Acute renal failure type: unspecified Qualified Code(s): N17.9 - Acute kidney failure, unspecified Is this a current diagnosis for this admission?: Yes Plan: Resolved. Patient was admitted with a creatinine of 3.61, now 1.30. Close to baseline. Patient does have adequate p.o. intake. Encourage p.o. fluids. We will avoid nephrotoxic medications as able. We will monitor with intermittent chemistries. - Time Time Spent with patient: Less than 15 minutes Medications reviewed and adjusted accordingly: Yes Anticipated discharge: SNF - LTC/Memory Care Within: when bed available
[2019-04-16] MEDS: ATORVASTATIN CALCIUM 40 MG TABLET PO SCH (21:41)
[2019-04-16] MEDS: ASPIRIN 81 MG TABLET, ENT COATED PO SCH (21:41)
[2019-04-17] MEDS: RISPERIDONE 0.25 MG TABLET PO SCH ×2 (08:08→15:46)
[2019-04-17] MEDS: AMLODIPINE BESYLATE 10 MG TABLET PO SCH (09:48)
[2019-04-17] MEDS: DOCUSATE SODIUM 100 MG CAPSULE PO SCH (09:48)
[2019-04-17] MEDS: ENOXAPARIN SODIUM INJ 40 MG/0.4 ML DISP.SYRIN SUBCUT SCH (09:51)
[2019-04-17] MEDS: DIVALPROEX SODIUM 250 MG TAB.SR.24H PO SCH ×2 (09:51→21:28)
[2019-04-17] MEDS: FAMOTIDINE 20 MG TABLET PO SCH ×2 (09:51→21:23)
[2019-04-17] MEDS: FENOFIBRATE NANOCRYSTALLIZED 145 MG TABLET PO SCH (10:36)
--- NOTE | 2019-04-17 12:34 | PDOC TRANSFER SUMMARY ---
General - Admit/Disc Date/PCP Admission Date/Primary Care Provider: 03/27/19 18:28 MANISH POLLARD MD Discharge Date: 04/17/19 - Discharge Diagnosis (1) Encephalopathy Is this a current diagnosis for this admission?: Yes Summary: New baseline; most likely vascular dementia with delirium. Patient's sister reported baseline confusion. Exacerbated by hospitalization and acute illness. Mental health consultation reviewed; medication recommendations implemented. Depakote has been increased to 500 mg p.o. every 12. Continue Risperdal 0.25 mg twice daily and clonidine 0.1 mg transdermal patch per mental health recommendations. (2) Vascular dementia Is this a current diagnosis for this admission?: Yes Summary: Brain MRI/MRA demonstrated diminutive appearance of the right vertebral artery, but otherwise no significant vascular abnormalities. Head MRI was negative for acute intracranial findings. Head CT revealed Mild chronic changes of atrophy with microvascular ischemia and no acute processes. Carotid Doppler showed a 50 to 69% diameter narrowing of the right proximal ICA but no significant stenosis to the left carotid. the patient sister did confirm baseline confusion, although now increased. Metabolic and infectious processes ruled out as potential cause of his increased confusion. Supportive care; remaining management as above. (3) Hypertension Is this a current diagnosis for this admission?: Yes Summary: Normotensive blood pressure. Continue amlodipine 5 mg daily Have added clonidine patch for behavioral disturbance; beneficial effect on blood pressure. Currently on a regular diet. (4) History of CVA (cerebrovascular accident) Is this a current diagnosis for this admission?: Yes Summary: Continue aspirin and statin therapy. Managed blood pressures with home medication regiment. (5) Acute renal failure Is this a current diagnosis for this admission?: Yes Summary: Resolved. Patient was admitted with a creatinine of 3.61, now 1.30. At baseline. Patient does have adequate p.o. intake, though does require prompting/encouragement. Continue to avoid nephrotoxic medication medications and renally dose when appropriate. Recommend routine monitoring with periodic chemistries. - Additional Information Resuscitation Status: Full Code Discharge Diet: Regular Discharge Activity: Activity As Tolerated, Balance Activity w/Rest Prescriptions: Clonidine [Catapres-Tts 1 (0.1 mg/24 Hr) Transderm Patch] 1 each TD Tu@10 #4 patch.tdwk Divalproex Sodium [Depakote ER 250 mg Tablet] 500 mg PO Q12 #60 tab.sr.24h Atorvastatin Calcium [Lipitor 40 mg Tablet] 40 mg PO QHS #30 tablet Amlodipine Besylate [Norvasc 10 mg Tablet] 5 mg PO DAILY #30 tablet Famotidine [Pepcid 20 mg Tablet] 20 mg PO Q12 #60 tablet Risperidone [Risperdal 0.25 mg Tablet] 0.25 mg PO BID@0800,1600 #60 tablet Fenofibrate Nanocrystallized [Tricor 145 mg Tablet] 145 mg PO DAILY #30 tablet Home Medications: Aspirin [Ecotrin 81 mg EC Tablet] 81 mg PO DAILY 03/27/19 Cyanocobalamin (Vitamin B-12) [Vitamin B-12 1000 mcg Tablet] 1,000 mcg PO DAILY 03/27/19 Acetaminophen [Tylenol 325 mg Tablet] 650 mg PO Q4HP PRN tablet 04/17/19 Amlodipine Besylate [Norvasc 10 mg Tablet] 5 mg PO DAILY #30 tablet 04/17/19 Aspirin [Ecotrin 81 mg EC Tablet] 81 mg PO QHS tabec 04/17/19 Atorvastatin Calcium [Lipitor 40 mg Tablet] 40 mg PO QHS #30 tablet 04/17/19 Clonidine [Catapres-Tts 1 (0.1 mg/24 Hr) Transderm Patch] 1 each TD Tu@10 #4 patch.tdwk 04/17/19 Divalproex Sodium [Depakote ER 250 mg Tablet] 500 mg PO Q12 #60 tab.sr.24h 04/17/19 Docusate Sodium [Colace 100 mg Capsule] 100 mg PO DAILY capsule 04/17/19 Famotidine [Pepcid 20 mg Tablet] 20 mg PO Q12 #60 tablet 04/17/19 Fenofibrate Nanocrystallized [Tricor 145 mg Tablet] 145 mg PO DAILY #30 tablet 04/17/19 Risperidone [Risperdal 0.25 mg Tablet] 0.25 mg PO BID@0800,1600 #60 tablet 04/17/19 History of Present Illness Admission Date/PCP: 03/27/19 18:28 MANISH POLLARD MD History of Present Illness: Per H&P by TANIKA Turk: DONALD GOMES is a 58 year old male who for the last week now has felt lightheaded and "off-balance". he has also been shaky and confused according to his sister. Patient is also felt weaker in the last week. Patient had a CVA about 6 years ago that left him with weakness in his left lower extremity. Patient is also had some dysarthria with his speech, but that seems to be worse in the last week as well according to his sister On his admission labs his BUN is elevated at 51 creatinine 3.61 Physical Exam Vital Signs: Temp Pulse Resp BP Pulse Ox 98.3 F 75 17 106/63 94 04/17/19 02:00 04/17/19 02:00 04/17/19 02:00 04/17/19 02:00 04/17/19 02:00 Intake & Output 04/16/19 04/17/19 04/18/19 06:59 06:59 06:59 Intake Total 840 360 Output Total 0 Balance 840 360 Weight 63.9 kg 62.8 kg General appearance: PRESENT: no acute distress, cooperative, thin, well- developed, well-nourished Head exam: PRESENT: atraumatic, normocephalic Eye exam: PRESENT: conjunctiva pink, EOMI, PERRLA. ABSENT: scleral icterus Ear exam: PRESENT: normal external ear exam Mouth exam: PRESENT: moist, tongue midline Neck exam: ABSENT: carotid bruit, JVD, lymphadenopathy, thyromegaly Respiratory exam: PRESENT: clear to auscultation jackie, symmetrical, unlabored. ABSENT: rales, rhonchi, wheezes Cardiovascular exam: PRESENT: RRR, +S1, +S2. ABSENT: diastolic murmur, rubs, systolic murmur Pulses: PRESENT: normal dorsalis pedis pul Vascular exam: PRESENT: normal capillary refill GI/Abdominal exam: PRESENT: normal bowel sounds, soft. ABSENT: distended, guarding, mass, organolmegaly, rebound, tenderness Rectal exam: PRESENT: deferred Extremities exam: PRESENT: full ROM. ABSENT: calf tenderness, clubbing, pedal edema Musculoskeletal exam: PRESENT: ambulatory - Though impulsive and with poor safety awareness Neurological exam: PRESENT: alert, awake, oriented to person, CN II-XII grossly intact, other - Pleasantly confused, does follow directions with repeated prompting. Requires assistance with meal set up.. ABSENT: oriented to place, oriented to time, oriented to situation, motor sensory deficit Psychiatric exam: PRESENT: appropriate affect, normal mood. ABSENT: homicidal ideation, suicidal ideation Skin exam: PRESENT: dry, intact, warm. ABSENT: cyanosis, rash Results Laboratory Results: 04/12/19 09:02 04/14/19 05:30 03/27/19 03/27/19 16:32 16:32 Creatine Kinase 54 L CK-MB (CK-2) < 0.22 Impressions: Brain MRI with MRA 03/27/19 00:00 IMPRESSION: Diminutive appearance of right vertebral artery, incompletely assessed. Otherwise no significant vascular abnormalities CAROTID STENOSIS REFERENCE USING NASCET CRITERIA: % ICA stenosis = (1 - narrowest ICA diameter/diameter of distal cervical ICA) x 100. Mild - <50% stenosis. Moderate - 50-69% stenosis. Severe - 70-94% stenosis. Near occlusion - 95-99% stenosis. Occluded - 100% stenosis. Head MRI 03/27/19 00:00 IMPRESSION: No acute intracranial findings. Carotid Doppler Study 03/30/19 00:00 IMPRESSION: 50 to 69% diameter narrowing by velocity criteria right proximal ICA No flow significant stenosis left carotid bifurcation Antegrade pulsatile vertebral artery flow bilaterally, left vertebral artery is dominant Head CT 04/12/19 11:13 IMPRESSION: Chronic ischemic changes. EVIDENCE OF ACUTE STROKE: NO. Transfer Plan - Disposition Transfer Plan: Discharge to SNF for short-term rehab with likely transition to long-term care. - Time Spent with Patient Time spent with patient: Less than 30 Minutes Qualifiers - * PATIENT BEING DISCHARGED WITH ANY OF THE FOLLOWING DIAGNOSIS: No Acute Heart Failure - Is this a Heart Failure Patient?: No Plan Discharge Plan: Discharge to SNF for short-term rehab with likely transition to long-term care. Time Spent: Greater than 30 Minutes
[2019-04-17] MEDS: ERYTHROMYCIN 0.5% OPH OINTMENT 3.5 GM TUBE OD SCH (17:49)
[2019-04-17] MEDS ORDERED: LORAZEPAM INJ 2 MG/1 ML VIAL IM ONE (20:30)
[2019-04-17] MEDS: ASPIRIN 81 MG TABLET, ENT COATED PO SCH (21:23)
[2019-04-17] MEDS: ATORVASTATIN CALCIUM 40 MG TABLET PO SCH (21:23)
[2019-04-18] MEDS: ERYTHROMYCIN 0.5% OPH OINTMENT 3.5 GM TUBE OD SCH ×4 (00:52→17:32)
[2019-04-18] MEDS: RISPERIDONE 0.25 MG TABLET PO SCH ×2 (08:42→17:31)
[2019-04-18] MEDS: AMLODIPINE BESYLATE 10 MG TABLET PO SCH (10:23)
[2019-04-18] MEDS: DOCUSATE SODIUM 100 MG CAPSULE PO SCH (10:23)
[2019-04-18] MEDS: DIVALPROEX SODIUM 250 MG TAB.SR.24H PO SCH ×2 (10:23→22:26)
[2019-04-18] MEDS: FAMOTIDINE 20 MG TABLET PO SCH ×2 (10:24→22:26)
[2019-04-18] MEDS: FENOFIBRATE NANOCRYSTALLIZED 145 MG TABLET PO SCH (10:24)
[2019-04-18] MEDS: ENOXAPARIN SODIUM INJ 40 MG/0.4 ML DISP.SYRIN SUBCUT SCH (10:24)
--- NOTE | 2019-04-18 17:18 | PDOC PROGRESS REPORT ---
Subjective Progress Note for:: 04/18/19 Subjective:: Patient is a 58-year-old male with a past medical history significant for prior CVA, vascular dementia, Hypertension, hyperlipidemia, who was admitted 03/27/2019 for WAQAS. The patient was seen on afternoon rounds. He was found resting in bed, comfortably, on room air. He was socially appropriate; smiled and nodded his head while I spoke, but would not talk with me, answer questions or follow directions today. He does appear to be comfortable and not in any acute distress. ROS is limited secondary to mental status. No concerns per nursing. Reason For Visit: ALTERED MENTAL STATUS,ATAXIA, CVA HYPERTENSION Physical Exam Vital Signs: Temp Pulse Resp BP Pulse Ox 97.6 F 59 L 16 106/73 90 L 04/18/19 12:16 04/18/19 12:16 04/18/19 12:16 04/18/19 12:16 04/18/19 12:16 Intake & Output 04/17/19 04/18/19 04/19/19 06:59 06:59 06:59 Intake Total 360 440 Output Total 0 Balance 360 440 Weight 62.8 kg 61.7 kg General appearance: PRESENT: no acute distress, thin, well-developed, well- nourished Head exam: PRESENT: atraumatic, normocephalic Eye exam: PRESENT: conjunctiva pink, EOMI, PERRLA. ABSENT: scleral icterus Ear exam: PRESENT: normal external ear exam Mouth exam: PRESENT: moist, tongue midline Teeth exam: PRESENT: poor dentation Neck exam: ABSENT: carotid bruit, JVD, lymphadenopathy, thyromegaly Respiratory exam: PRESENT: clear to auscultation jackie, symmetrical, unlabored. ABSENT: rales, rhonchi, wheezes Cardiovascular exam: PRESENT: RRR, +S1, +S2. ABSENT: diastolic murmur, rubs, systolic murmur Pulses: PRESENT: normal dorsalis pedis pul Vascular exam: PRESENT: normal capillary refill GI/Abdominal exam: PRESENT: normal bowel sounds, soft. ABSENT: distended, guarding, mass, organolmegaly, rebound, tenderness Rectal exam: PRESENT: deferred Extremities exam: PRESENT: full ROM. ABSENT: calf tenderness, clubbing, pedal edema Neurological exam: PRESENT: alert, awake, oriented to person, CN II-XII grossly intact. ABSENT: oriented to place, oriented to time, oriented to situation, motor sensory deficit Psychiatric exam: PRESENT: appropriate affect, normal mood. ABSENT: homicidal ideation, suicidal ideation Skin exam: PRESENT: dry, intact, warm. ABSENT: cyanosis, rash Results Laboratory Results: 04/12/19 09:02 04/14/19 05:30 03/27/19 03/27/19 16:32 16:32 Creatine Kinase 54 L CK-MB (CK-2) < 0.22 Impressions: Brain MRI with MRA 03/27/19 00:00 IMPRESSION: Diminutive appearance of right vertebral artery, incompletely assessed. Otherwise no significant vascular abnormalities CAROTID STENOSIS REFERENCE USING NASCET CRITERIA: % ICA stenosis = (1 - narrowest ICA diameter/diameter of distal cervical ICA) x 100. Mild - <50% stenosis. Moderate - 50-69% stenosis. Severe - 70-94% stenosis. Near occlusion - 95-99% stenosis. Occluded - 100% stenosis. Head MRI 03/27/19 00:00 IMPRESSION: No acute intracranial findings. Carotid Doppler Study 03/30/19 00:00 IMPRESSION: 50 to 69% diameter narrowing by velocity criteria right proximal ICA No flow significant stenosis left carotid bifurcation Antegrade pulsatile vertebral artery flow bilaterally, left vertebral artery is dominant Head CT 04/12/19 11:13 IMPRESSION: Chronic ischemic changes. EVIDENCE OF ACUTE STROKE: NO. Assessment and Plan - Diagnosis (1) Encephalopathy Is this a current diagnosis for this admission?: Yes Plan: Likely at new baseline; most likely vascular dementia with delirium. Patient's sister reported baseline confusion to previous provider. Exacerbated by hospitalization and acute illness. Mental health consultation reviewed; medication recommendations implemented. Depakote has been increased to 500 mg p.o. every 12. Continue Risperdal 0.25 mg twice daily and clonidine 0.1 mg transdermal patch per mental health recommendations. We will avoid benzodiazepines as able; will discontinue scheduled nightly Valium. (2) Vascular dementia Is this a current diagnosis for this admission?: Yes Plan: Supportive care; remaining management as above. (3) Hypertension Is this a current diagnosis for this admission?: Yes Plan: Normotensive blood pressures today. Continue amlodipine 5 mg daily Have added clonidine patch for behavioral disturbance; monitor for effect on blood pressure. Currently on a regular diet. (4) History of CVA (cerebrovascular accident) Is this a current diagnosis for this admission?: Yes Plan: Continue aspirin and statin therapy. Managed blood pressures with home medication regiment. (5) Acute renal failure Qualifiers: Acute renal failure type: unspecified Qualified Code(s): N17.9 - Acute kidney failure, unspecified Is this a current diagnosis for this admission?: Yes Plan: Resolved. Patient was admitted with a creatinine of 3.61, now 1.30. Close to baseline. Patient does have adequate p.o. intake. Encourage p.o. fluids. We will avoid nephrotoxic medications as able. We will monitor with intermittent chemistries. - Time Time Spent with patient: Less than 15 minutes Medications reviewed and adjusted accordingly: Yes Anticipated discharge: Home with Homehealth Within: within 24 hours - Plan Summary Plan Summary: The patient was given a bed offer at long-term care facility, however, when they ran his insurance they found that his Medicaid had and unfortunately rescinded the offer. Discharge planning has discussed with the patient's sister option for discharge to home with home health services. Will need to follow-up with family and discharge planning tomorrow to determine the best way to support family in this. Unfortunately, the patient is not rehab eligible but no longer meets for acute care services. Family will need to take the patient home while pursuing long- term Medicaid and placement.
[2019-04-18] MEDS: ASPIRIN 81 MG TABLET, ENT COATED PO SCH (22:26)
[2019-04-18] MEDS: ATORVASTATIN CALCIUM 40 MG TABLET PO SCH (22:26)
[2019-04-19] MEDS: ERYTHROMYCIN 0.5% OPH OINTMENT 3.5 GM TUBE OD SCH ×5 (03:05→23:18)
[2019-04-19] MEDS: RISPERIDONE 0.25 MG TABLET PO SCH ×2 (08:22→16:43)
[2019-04-19] MEDS: FENOFIBRATE NANOCRYSTALLIZED 145 MG TABLET PO SCH (09:10)
[2019-04-19] MEDS: DIVALPROEX SODIUM 250 MG TAB.SR.24H PO SCH ×2 (09:10→22:24)
[2019-04-19] MEDS: FAMOTIDINE 20 MG TABLET PO SCH ×2 (09:11→22:25)
[2019-04-19] MEDS: AMLODIPINE BESYLATE 10 MG TABLET PO SCH (09:11)
[2019-04-19] MEDS: DOCUSATE SODIUM 100 MG CAPSULE PO SCH (09:11)
[2019-04-19] MEDS: ENOXAPARIN SODIUM INJ 40 MG/0.4 ML DISP.SYRIN SUBCUT SCH (09:11)
--- NOTE | 2019-04-19 13:44 | PDOC PROGRESS REPORT ---
Subjective Progress Note for:: 04/19/19 Subjective:: Patient is a 58-year-old male with a past medical history significant for prior CVA, vascular dementia, Hypertension, hyperlipidemia, who was admitted 03/27/2019 for WAQAS. The patient was seen on morning rounds. He was found resting in bed, comfortably, on room air. He was socially appropriate; mumbled continuously. He does not answer questions or follow directions today. He does appear to be comfortable and not in any acute distress. ROS is limited secondary to mental status. No concerns per nursing. Reason For Visit: ALTERED MENTAL STATUS,ATAXIA, CVA HYPERTENSION Physical Exam Vital Signs: Temp Pulse Resp BP Pulse Ox 98.4 F 68 17 114/71 97 04/19/19 03:17 04/19/19 03:17 04/19/19 03:17 04/19/19 03:17 04/19/19 03:17 Intake & Output 04/18/19 04/19/19 04/20/19 06:59 06:59 06:59 Intake Total 440 480 360 Balance 440 480 360 Weight 61.7 kg 62 kg General appearance: PRESENT: no acute distress, disheveled, thin, well- developed, well-nourished Head exam: PRESENT: atraumatic, normocephalic Eye exam: PRESENT: conjunctiva pink, EOMI, PERRLA. ABSENT: scleral icterus Ear exam: PRESENT: normal external ear exam Mouth exam: PRESENT: moist, tongue midline Teeth exam: PRESENT: poor dentation Neck exam: ABSENT: carotid bruit, JVD, lymphadenopathy, thyromegaly Respiratory exam: PRESENT: clear to auscultation jackie, symmetrical, unlabored. ABSENT: rales, rhonchi, wheezes Cardiovascular exam: PRESENT: RRR, +S1, +S2. ABSENT: diastolic murmur, rubs, systolic murmur Pulses: PRESENT: normal dorsalis pedis pul Vascular exam: PRESENT: normal capillary refill GI/Abdominal exam: PRESENT: normal bowel sounds, soft. ABSENT: distended, guarding, mass, organolmegaly, rebound, tenderness Rectal exam: PRESENT: deferred Extremities exam: PRESENT: full ROM. ABSENT: calf tenderness, clubbing, pedal edema Neurological exam: PRESENT: alert, awake, oriented to person, CN II-XII grossly intact. ABSENT: oriented to place, oriented to time, oriented to situation, motor sensory deficit Psychiatric exam: PRESENT: appropriate affect, normal mood. ABSENT: homicidal ideation, suicidal ideation Skin exam: PRESENT: dry, intact, warm. ABSENT: cyanosis, rash Results Laboratory Results: 04/12/19 09:02 04/14/19 05:30 03/27/19 03/27/19 16:32 16:32 Creatine Kinase 54 L CK-MB (CK-2) < 0.22 Impressions: Brain MRI with MRA 03/27/19 00:00 IMPRESSION: Diminutive appearance of right vertebral artery, incompletely assessed. Otherwise no significant vascular abnormalities CAROTID STENOSIS REFERENCE USING NASCET CRITERIA: % ICA stenosis = (1 - narrowest ICA diameter/diameter of distal cervical ICA) x 100. Mild - <50% stenosis. Moderate - 50-69% stenosis. Severe - 70-94% stenosis. Near occlusion - 95-99% stenosis. Occluded - 100% stenosis. Head MRI 03/27/19 00:00 IMPRESSION: No acute intracranial findings. Carotid Doppler Study 03/30/19 00:00 IMPRESSION: 50 to 69% diameter narrowing by velocity criteria right proximal ICA No flow significant stenosis left carotid bifurcation Antegrade pulsatile vertebral artery flow bilaterally, left vertebral artery is dominant Head CT 04/12/19 11:13 IMPRESSION: Chronic ischemic changes. EVIDENCE OF ACUTE STROKE: NO. Assessment and Plan - Diagnosis (1) Encephalopathy Is this a current diagnosis for this admission?: Yes Plan: Likely at new baseline; most likely vascular dementia with delirium. Patient's sister reported baseline confusion to previous provider. Exacerbated by hospitalization and acute illness. Mental health consultation reviewed; medication recommendations implemented. Depakote has been increased to 500 mg p.o. every 12. Continue Risperdal 0.25 mg twice daily and clonidine 0.1 mg transdermal patch per mental health recommendations. We will avoid benzodiazepines as able; will discontinue scheduled nightly Valium. (2) Vascular dementia Is this a current diagnosis for this admission?: Yes Plan: Supportive care; remaining management as above. (3) Hypertension Is this a current diagnosis for this admission?: Yes Plan: Normotensive blood pressures today. Continue amlodipine 5 mg daily Have added clonidine patch for behavioral disturbance; monitor for effect on blood pressure. Currently on a regular diet. (4) History of CVA (cerebrovascular accident) Is this a current diagnosis for this admission?: Yes Plan: Continue aspirin and statin therapy. Managed blood pressures with home medication regiment. (5) Acute renal failure Qualifiers: Acute renal failure type: unspecified Qualified Code(s): N17.9 - Acute kidney failure, unspecified Is this a current diagnosis for this admission?: Yes Plan: Resolved. Patient was admitted with a creatinine of 3.61, now 1.30. Close to baseline. Patient does have adequate p.o. intake. Encourage p.o. fluids. We will avoid nephrotoxic medications as able. We will monitor with intermittent chemistries. - Time Time Spent with patient: 15-24 minutes - Plan Summary Plan Summary: The patient was given a bed offer at long-term care facility, however, when they ran his insurance they found that his Medicaid had and unfortunately rescinded the offer. Had a long discussion with discharge planning today; are planning to speak with Medicaid office Saturday about his insurance. It is possible that his insurance can be quickly renewed as it was recently current. If his Medicaid is able to be activated, we will again seek placement, however, if not will need to discuss with sister options for taking patient home.
[2019-04-19] MEDS: ASPIRIN 81 MG TABLET, ENT COATED PO SCH (22:25)
[2019-04-19] MEDS: ATORVASTATIN CALCIUM 40 MG TABLET PO SCH (22:25)
[2019-04-20] MEDS: ERYTHROMYCIN 0.5% OPH OINTMENT 3.5 GM TUBE OD SCH (05:59)
[2019-04-20] MEDS: RISPERIDONE 0.25 MG TABLET PO SCH ×2 (08:28→17:25)
[2019-04-20] MEDS ORDERED: BISACODYL 10 MG SUPP.RECT PR PRN (09:58)
[2019-04-20] MEDS: FAMOTIDINE 20 MG TABLET PO SCH ×2 (10:48→22:00)
[2019-04-20] MEDS: DOCUSATE SODIUM 100 MG CAPSULE PO SCH ×2 (10:48→17:25)
[2019-04-20] MEDS: AMLODIPINE BESYLATE 10 MG TABLET PO SCH (10:48)
[2019-04-20] MEDS: DIVALPROEX SODIUM 250 MG TAB.SR.24H PO SCH ×2 (10:48→22:00)
[2019-04-20] MEDS: ENOXAPARIN SODIUM INJ 40 MG/0.4 ML DISP.SYRIN SUBCUT SCH (10:48)
[2019-04-20] MEDS: FENOFIBRATE NANOCRYSTALLIZED 145 MG TABLET PO SCH (10:50)
[2019-04-20] MEDS ORDERED: PHENOL/SODIUM PHENOLATE 100 SPRAY/177 ML BOTTLE PO PRN (12:00)
--- NOTE | 2019-04-20 14:21 | PDOC PROGRESS REPORT ---
Subjective Progress Note for:: 04/20/19 Subjective:: Patient is a 58-year-old male with a past medical history significant for prior CVA, vascular dementia, Hypertension, hyperlipidemia, who was admitted 03/27/2019 for WAQAS. The patient was seen on morning rounds. He was found resting in bed, comfortably, on room air. He was socially appropriate; made eye contact, and was able to follow a few simple commands today. He does tell me that he has a sore throat. He denies all other symptoms; no fever, chills, headache, chest pain, shortness of breath or cough. He does appear to be comfortable and not in any acute distress. ROS is limited secondary to mental status. No concerns per nursing. Reason For Visit: ALTERED MENTAL STATUS,ATAXIA, CVA HYPERTENSION Physical Exam Vital Signs: Temp Pulse Resp BP Pulse Ox 98.2 F 77 14 122/79 95 04/19/19 19:42 04/19/19 19:42 04/19/19 19:42 04/19/19 19:42 04/19/19 19:42 Intake & Output 04/19/19 04/20/19 04/21/19 06:59 06:59 06:59 Intake Total 480 600 240 Output Total 360 Balance 480 240 240 Weight 62 kg General appearance: PRESENT: no acute distress, thin, well-developed, well- nourished Head exam: PRESENT: atraumatic, normocephalic Eye exam: PRESENT: conjunctiva pink, EOMI, PERRLA. ABSENT: scleral icterus Ear exam: PRESENT: normal external ear exam Mouth exam: PRESENT: moist, tongue midline Teeth exam: PRESENT: poor dentation Throat exam: PRESENT: post pharyngeal erythema, other - Postnasal drip Neck exam: ABSENT: carotid bruit, JVD, lymphadenopathy, thyromegaly Respiratory exam: PRESENT: clear to auscultation jackie, symmetrical, unlabored. ABSENT: rales, rhonchi, wheezes Cardiovascular exam: PRESENT: RRR. ABSENT: diastolic murmur, rubs, systolic murmur Pulses: PRESENT: normal dorsalis pedis pul Vascular exam: PRESENT: normal capillary refill GI/Abdominal exam: PRESENT: normal bowel sounds, soft. ABSENT: distended, guarding, mass, organolmegaly, rebound, tenderness Rectal exam: PRESENT: deferred Extremities exam: PRESENT: full ROM. ABSENT: calf tenderness, clubbing, pedal edema Neurological exam: PRESENT: alert, awake, oriented to person, CN II-XII grossly intact, other - Conversational and socially appropriate today, although remains disorientated. ABSENT: oriented to place, oriented to time, oriented to situation, motor sensory deficit Psychiatric exam: PRESENT: appropriate affect, normal mood. ABSENT: homicidal ideation, suicidal ideation Skin exam: PRESENT: dry, intact, warm. ABSENT: cyanosis, rash Results Laboratory Results: 04/12/19 09:02 04/14/19 05:30 03/27/19 03/27/19 16:32 16:32 Creatine Kinase 54 L CK-MB (CK-2) < 0.22 Impressions: Brain MRI with MRA 03/27/19 00:00 IMPRESSION: Diminutive appearance of right vertebral artery, incompletely assessed. Otherwise no significant vascular abnormalities CAROTID STENOSIS REFERENCE USING NASCET CRITERIA: % ICA stenosis = (1 - narrowest ICA diameter/diameter of distal cervical ICA) x 100. Mild - <50% stenosis. Moderate - 50-69% stenosis. Severe - 70-94% stenosis. Near occlusion - 95-99% stenosis. Occluded - 100% stenosis. Head MRI 03/27/19 00:00 IMPRESSION: No acute intracranial findings. Carotid Doppler Study 03/30/19 00:00 IMPRESSION: 50 to 69% diameter narrowing by velocity criteria right proximal ICA No flow significant stenosis left carotid bifurcation Antegrade pulsatile vertebral artery flow bilaterally, left vertebral artery is dominant Head CT 04/12/19 11:13 IMPRESSION: Chronic ischemic changes. EVIDENCE OF ACUTE STROKE: NO. Assessment and Plan - Diagnosis (1) Encephalopathy Is this a current diagnosis for this admission?: Yes Plan: Likely at new baseline Acute metabolic encephalopathy secondary to acute renal failure complicated by vascular dementia. Patient's sister reported baseline confusion to previous provider. Exacerbated by hospitalization Mental health consultation reviewed; medication recommendations implemented. Depakote has been increased to 500 mg p.o. every 12. Continue Risperdal 0.25 mg twice daily and clonidine 0.1 mg transdermal patch per mental health recommendations. We will avoid benzodiazepines as able; will discontinue scheduled nightly Valium. (2) Vascular dementia Is this a current diagnosis for this admission?: Yes Plan: Supportive care; remaining management as above. (3) Hypertension Is this a current diagnosis for this admission?: Yes Plan: Normotensive blood pressures today. Continue amlodipine 5 mg daily Have added clonidine patch for behavioral disturbance; monitor for effect on blood pressure. Currently on a regular diet. (4) History of CVA (cerebrovascular accident) Is this a current diagnosis for this admission?: Yes Plan: Continue aspirin and statin therapy. Managed blood pressures with home medication regiment. (5) Acute renal failure Qualifiers: Acute renal failure type: unspecified Qualified Code(s): N17.9 - Acute kidney failure, unspecified Is this a current diagnosis for this admission?: Yes Plan: Resolved. Patient was admitted with a creatinine of 3.61, now 1.30. Close to baseline. Patient does have adequate p.o. intake. Encourage p.o. fluids. We will avoid nephrotoxic medications as able. We will monitor with intermittent chemistries. (6) Rhinitis Qualifiers: Rhinitis type: acute Qualified Code(s): J00 - Acute nasopharyngitis [common cold] Is this a current diagnosis for this admission?: Yes Plan: Patient complained of sore throat today; found to have pharyngeal erythema and postnasal drip. Start Flonase. Chloraseptic spray as needed. Encourage p.o. fluids. - Time Time Spent with patient: 15-24 minutes Medications reviewed and adjusted accordingly: Yes Anticipated discharge: SNF - Plan Summary Plan Summary: Discard discussed with discharge planning today; I have reached out to the Medicaid worker for expedited renewal. Per professor of social work, the sister indicates that she would be unable to provide care for patient in her home; discharge planning to make APS referral.
[2019-04-20] MEDS: FLUTICASONE NASAL SPRAY 50 MCG/SPRY 120 SPRAY/16 GM NASL SCH (17:25)
[2019-04-20] MEDS ORDERED: OLANZAPINE INJ/PF 10 MG SDV IM ONE (20:00)
[2019-04-20] MEDS ORDERED: QUETIAPINE FUMARATE 25 MG TABLET PO ONE (20:00)
[2019-04-20] MEDS ORDERED: LORAZEPAM INJ 2 MG/1 ML VIAL IM ONE (20:00)
[2019-04-20] MEDS: ATORVASTATIN CALCIUM 40 MG TABLET PO SCH (22:00)
[2019-04-20] MEDS: ASPIRIN 81 MG TABLET, ENT COATED PO SCH (22:00)
[2019-04-21] MEDS: RISPERIDONE 0.25 MG TABLET PO SCH ×2 (08:43→15:48)
--- NOTE | 2019-04-21 10:06 | PDOC PROGRESS REPORT ---
Subjective Progress Note for:: 04/21/19 Subjective:: March 29, 2019-patient is confused will not answer questions at this time. Remains in four-point restraints March 30, 2019-patient remains confused only oriented to self. Only in two- point restraints at this time 04/21/2019-no complaints at this time Reason For Visit: ALTERED MENTAL STATUS,ATAXIA, CVA HYPERTENSION Physical Exam Vital Signs: Temp Pulse Resp BP Pulse Ox 98.0 F 58 L 18 110/65 95 04/21/19 08:39 04/21/19 08:39 04/21/19 08:39 04/21/19 08:39 04/21/19 08:39 Intake & Output 04/20/19 04/21/19 04/22/19 06:59 06:59 06:59 Intake Total 600 600 Output Total 360 Balance 240 600 Weight 63.3 kg Results Laboratory Results: 04/12/19 09:02 04/14/19 05:30 03/27/19 03/27/19 16:32 16:32 Creatine Kinase 54 L CK-MB (CK-2) < 0.22 Impressions: Brain MRI with MRA 03/27/19 00:00 IMPRESSION: Diminutive appearance of right vertebral artery, incompletely assessed. Otherwise no significant vascular abnormalities CAROTID STENOSIS REFERENCE USING NASCET CRITERIA: % ICA stenosis = (1 - narrowest ICA diameter/diameter of distal cervical ICA) x 100. Mild - <50% stenosis. Moderate - 50-69% stenosis. Severe - 70-94% stenosis. Near occlusion - 95-99% stenosis. Occluded - 100% stenosis. Head MRI 03/27/19 00:00 IMPRESSION: No acute intracranial findings. Carotid Doppler Study 03/30/19 00:00 IMPRESSION: 50 to 69% diameter narrowing by velocity criteria right proximal ICA No flow significant stenosis left carotid bifurcation Antegrade pulsatile vertebral artery flow bilaterally, left vertebral artery is dominant Head CT 04/12/19 11:13 IMPRESSION: Chronic ischemic changes. EVIDENCE OF ACUTE STROKE: NO. Assessment and Plan - Diagnosis (1) Encephalopathy Is this a current diagnosis for this admission?: Yes Plan: Likely at new baseline Acute metabolic encephalopathy secondary to acute renal failure complicated by vascular dementia. Patient's sister reported baseline confusion to previous provider. Exacerbated by hospitalization Mental health consultation reviewed; medication recommendations implemented. Depakote has been increased to 500 mg p.o. every 12. Continue Risperdal 0.25 mg twice daily and clonidine 0.1 mg transdermal patch per mental health recommendations. We will avoid benzodiazepines as able; will discontinue scheduled nightly Valium. 04/21/2019-likely at baseline. Patient remains on Depakote 500 mg p.o. every 12 hours, Risperdal 0.25 mg p.o. twice daily and clonidine patch 0.1 mg per mental health recommendations. Avoid benzodiazepines and Valium. (2) Vascular dementia Is this a current diagnosis for this admission?: Yes Plan: Supportive care; remaining management as above. 04/21/2019-supportive care see above (3) Hypertension Is this a current diagnosis for this admission?: Yes Plan: Normotensive blood pressures today. Continue amlodipine 5 mg daily Have added clonidine patch for behavioral disturbance; monitor for effect on blood pressure. Currently on a regular diet. 04/21/2019 stable continue current management and monitor (4) Acute renal failure Qualifiers: Acute renal failure type: unspecified Qualified Code(s): N17.9 - Acute kidney failure, unspecified Is this a current diagnosis for this admission?: Yes Plan: Resolved. Patient was admitted with a creatinine of 3.61, now 1.30. Close to baseline. Patient does have adequate p.o. intake. Encourage p.o. fluids. We will avoid nephrotoxic medications as able. We will monitor with intermittent chemistries. 04/21/2019-stable continue to follow (5) Rhinitis Qualifiers: Rhinitis type: acute Qualified Code(s): J00 - Acute nasopharyngitis [common cold] Is this a current diagnosis for this admission?: Yes Plan: Patient complained of sore throat today; found to have pharyngeal erythema and postnasal drip. Start Flonase. Chloraseptic spray as needed. Encourage p.o. fluids. 04/21/2019-continue Flonase - Time Time Spent with patient: 15-24 minutes - Inpatient Certification Based on my medical assessment, after consideration of the patient's comorbidities, presenting symptoms, or acuity I expect that the services needed warrant INPATIENT care.: Yes I certify that my determination is in accordance with my understanding of Medicare's requirements for reasonable and necessary INPATIENT services [42 CFR 412.3e].: Yes Medical Necessity: Other - Discharge planning
[2019-04-21] MEDS: DOCUSATE SODIUM 100 MG CAPSULE PO SCH ×2 (10:24→17:57)
[2019-04-21] MEDS: AMLODIPINE BESYLATE 10 MG TABLET PO SCH (10:24)
[2019-04-21] MEDS: FAMOTIDINE 20 MG TABLET PO SCH ×2 (10:25→22:56)
[2019-04-21] MEDS: FENOFIBRATE NANOCRYSTALLIZED 145 MG TABLET PO SCH (10:25)
[2019-04-21] MEDS: DIVALPROEX SODIUM 250 MG TAB.SR.24H PO SCH ×2 (10:25→22:56)
[2019-04-21] MEDS: ENOXAPARIN SODIUM INJ 40 MG/0.4 ML DISP.SYRIN SUBCUT SCH (10:25)
[2019-04-21] MEDS: CLONIDINE 0.1 MG/24 HR PATCH.TDWK TD SCH (10:27)
[2019-04-21] MEDS: FLUTICASONE NASAL SPRAY 50 MCG/SPRY 120 SPRAY/16 GM NASL SCH (10:37)
[2019-04-21] MEDS ORDERED: CHLORPROMAZINE HCL INJ 25 MG/1 ML AMPULE IV ONE (22:00)
[2019-04-21] MEDS: ATORVASTATIN CALCIUM 40 MG TABLET PO SCH (22:56)
[2019-04-21] MEDS: ASPIRIN 81 MG TABLET, ENT COATED PO SCH (22:56)
[2019-04-21] MEDS ORDERED: CHLORPROMAZINE HCL INJ 25 MG/1 ML AMPULE ONE (22:57)
[2019-04-22] MEDS: RISPERIDONE 0.25 MG TABLET PO SCH ×2 (08:43→15:56)
--- NOTE | 2019-04-22 09:38 | PDOC PROGRESS REPORT ---
Subjective Progress Note for:: 04/22/19 Subjective:: March 29, 2019-patient is confused will not answer questions at this time. Remains in four-point restraints March 30, 2019-patient remains confused only oriented to self. Only in two- point restraints at this time 04/21/2019-no complaints at this time 04/22/2019-no complaints this a.m. eating breakfast Reason For Visit: ALTERED MENTAL STATUS,ATAXIA, CVA HYPERTENSION Physical Exam Vital Signs: Temp Pulse Resp BP Pulse Ox 97.8 F 85 16 131/74 H 100 04/22/19 03:43 04/22/19 03:43 04/22/19 03:43 04/22/19 03:43 04/22/19 03:43 Intake & Output 04/21/19 04/22/19 04/23/19 06:59 06:59 06:59 Intake Total 600 990 Balance 600 990 Weight 63.3 kg 63 kg General appearance: PRESENT: no acute distress, well-developed, well-nourished Neck exam: ABSENT: carotid bruit, JVD, lymphadenopathy, thyromegaly Respiratory exam: PRESENT: clear to auscultation jackie. ABSENT: rales, rhonchi, wheezes Cardiovascular exam: PRESENT: RRR. ABSENT: diastolic murmur, rubs, systolic murmur Vascular exam: PRESENT: normal capillary refill GI/Abdominal exam: PRESENT: normal bowel sounds, soft. ABSENT: distended, guarding, mass, organolmegaly, rebound, tenderness Extremities exam: PRESENT: full ROM. ABSENT: calf tenderness, clubbing, pedal edema Neurological exam: PRESENT: alert, awake, other - Pleasantly confused Psychiatric exam: PRESENT: other - Pleasantly confused unable to assess Skin exam: PRESENT: dry, intact, warm. ABSENT: cyanosis, rash Results Laboratory Results: 04/12/19 09:02 04/14/19 05:30 03/27/19 03/27/19 16:32 16:32 Creatine Kinase 54 L CK-MB (CK-2) < 0.22 Impressions: Brain MRI with MRA 03/27/19 00:00 IMPRESSION: Diminutive appearance of right vertebral artery, incompletely assessed. Otherwise no significant vascular abnormalities CAROTID STENOSIS REFERENCE USING NASCET CRITERIA: % ICA stenosis = (1 - narrowest ICA diameter/diameter of distal cervical ICA) x 100. Mild - <50% stenosis. Moderate - 50-69% stenosis. Severe - 70-94% stenosis. Near occlusion - 95-99% stenosis. Occluded - 100% stenosis. Head MRI 03/27/19 00:00 IMPRESSION: No acute intracranial findings. Carotid Doppler Study 03/30/19 00:00 IMPRESSION: 50 to 69% diameter narrowing by velocity criteria right proximal ICA No flow significant stenosis left carotid bifurcation Antegrade pulsatile vertebral artery flow bilaterally, left vertebral artery is dominant Head CT 04/12/19 11:13 IMPRESSION: Chronic ischemic changes. EVIDENCE OF ACUTE STROKE: NO. Assessment and Plan - Diagnosis (1) Encephalopathy Is this a current diagnosis for this admission?: Yes Plan: Likely at new baseline Acute metabolic encephalopathy secondary to acute renal failure complicated by vascular dementia. Patient's sister reported baseline confusion to previous provider. Exacerbated by hospitalization Mental health consultation reviewed; medication recommendations implemented. Depakote has been increased to 500 mg p.o. every 12. Continue Risperdal 0.25 mg twice daily and clonidine 0.1 mg transdermal patch per mental health recommendations. We will avoid benzodiazepines as able; will discontinue scheduled nightly Valium. 04/21/2019-likely at baseline. Patient remains on Depakote 500 mg p.o. every 12 hours, Risperdal 0.25 mg p.o. twice daily and clonidine patch 0.1 mg per mental health recommendations. Avoid benzodiazepines and Valium. 04/22/2019-continues at baseline. Continue current medication therapy as stated above (2) Vascular dementia Is this a current diagnosis for this admission?: Yes Plan: Supportive care; remaining management as above. 04/21/2019-supportive care see above 04/22/2019-continue supportive care (3) Hypertension Is this a current diagnosis for this admission?: Yes Plan: Normotensive blood pressures today. Continue amlodipine 5 mg daily Have added clonidine patch for behavioral disturbance; monitor for effect on blood pressure. Currently on a regular diet. 04/21/2019 stable continue current management and monitor 04/22/2019-stable continue to monitor (4) Acute renal failure Qualifiers: Acute renal failure type: unspecified Qualified Code(s): N17.9 - Acute kidney failure, unspecified Is this a current diagnosis for this admission?: Yes Plan: Resolved. Patient was admitted with a creatinine of 3.61, now 1.30. Close to baseline. Patient does have adequate p.o. intake. Encourage p.o. fluids. We will avoid nephrotoxic medications as able. We will monitor with intermittent chemistries. 04/21/2019-stable continue to follow 04/22/2019-stable (5) Rhinitis Qualifiers: Rhinitis type: acute Qualified Code(s): J00 - Acute nasopharyngitis [common cold] Is this a current diagnosis for this admission?: Yes Plan: Patient complained of sore throat today; found to have pharyngeal erythema and postnasal drip. Start Flonase. Chloraseptic spray as needed. Encourage p.o. fluids. 04/21/2019-continue Flonase 04/22/2019-Flonase continues - Time Time Spent with patient: 15-24 minutes
[2019-04-22] MEDS: FENOFIBRATE NANOCRYSTALLIZED 145 MG TABLET PO SCH (10:07)
[2019-04-22] MEDS: ENOXAPARIN SODIUM INJ 40 MG/0.4 ML DISP.SYRIN SUBCUT SCH (10:07)
[2019-04-22] MEDS: FAMOTIDINE 20 MG TABLET PO SCH ×2 (10:07→21:42)
[2019-04-22] MEDS: FLUTICASONE NASAL SPRAY 50 MCG/SPRY 120 SPRAY/16 GM NASL SCH (10:07)
[2019-04-22] MEDS: DIVALPROEX SODIUM 250 MG TAB.SR.24H PO SCH ×2 (10:07→21:42)
[2019-04-22] MEDS: DOCUSATE SODIUM 100 MG CAPSULE PO SCH ×2 (10:07→17:28)
[2019-04-22] MEDS: AMLODIPINE BESYLATE 10 MG TABLET PO SCH (10:10)
[2019-04-22] MEDS: ZIPRASIDONE MESYLATE INJ/PF 20 MG SDV IM PRN (17:28)
[2019-04-22] MEDS: ASPIRIN 81 MG TABLET, ENT COATED PO SCH (21:42)
[2019-04-22] MEDS: ATORVASTATIN CALCIUM 40 MG TABLET PO SCH (21:42)
[2019-04-23] MEDS: RISPERIDONE 0.25 MG TABLET PO SCH ×2 (08:54→16:23)
[2019-04-23] MEDS: AMLODIPINE BESYLATE 10 MG TABLET PO SCH (09:20)
[2019-04-23] MEDS: DOCUSATE SODIUM 100 MG CAPSULE PO SCH ×2 (09:20→17:31)
[2019-04-23] MEDS: FENOFIBRATE NANOCRYSTALLIZED 145 MG TABLET PO SCH (09:20)
[2019-04-23] MEDS: DIVALPROEX SODIUM 250 MG TAB.SR.24H PO SCH ×2 (09:21→22:22)
[2019-04-23] MEDS: FAMOTIDINE 20 MG TABLET PO SCH ×2 (09:21→22:23)
[2019-04-23] MEDS: FLUTICASONE NASAL SPRAY 50 MCG/SPRY 120 SPRAY/16 GM NASL SCH (09:21)
[2019-04-23] MEDS: ENOXAPARIN SODIUM INJ 40 MG/0.4 ML DISP.SYRIN SUBCUT SCH (09:22)
--- NOTE | 2019-04-23 09:51 | PDOC PROGRESS REPORT ---
Subjective Progress Note for:: 04/23/19 Subjective:: March 29, 2019-patient is confused will not answer questions at this time. Remains in four-point restraints March 30, 2019-patient remains confused only oriented to self. Only in two- point restraints at this time 04/21/2019-no complaints at this time 04/22/2019-no complaints this a.m. eating breakfast 04/23/2019-no complaints this a.m. Reason For Visit: ALTERED MENTAL STATUS,ATAXIA, CVA HYPERTENSION Physical Exam Vital Signs: Temp Pulse Resp BP Pulse Ox 98.4 F 70 18 127/71 H 97 04/22/19 20:22 04/23/19 06:43 04/23/19 06:43 04/23/19 06:43 04/23/19 06:43 Intake & Output 04/22/19 04/23/19 04/24/19 06:59 06:59 06:59 Intake Total 990 1018 Balance 990 1018 Weight 63 kg 63.5 kg General appearance: PRESENT: no acute distress, well-developed, well-nourished Neck exam: ABSENT: carotid bruit, JVD, lymphadenopathy, thyromegaly Respiratory exam: PRESENT: clear to auscultation jackie. ABSENT: rales, rhonchi, wheezes Cardiovascular exam: PRESENT: RRR. ABSENT: diastolic murmur, rubs, systolic murmur Pulses: PRESENT: normal dorsalis pedis pul Vascular exam: PRESENT: normal capillary refill GI/Abdominal exam: PRESENT: normal bowel sounds, soft. ABSENT: distended, guarding, mass, organolmegaly, rebound, tenderness Extremities exam: PRESENT: full ROM. ABSENT: calf tenderness, clubbing, pedal edema Neurological exam: PRESENT: awake, other - Confused Psychiatric exam: PRESENT: other - Confused Skin exam: PRESENT: dry, intact, warm. ABSENT: cyanosis, rash Results Laboratory Results: 04/12/19 09:02 04/14/19 05:30 03/27/19 03/27/19 16:32 16:32 Creatine Kinase 54 L CK-MB (CK-2) < 0.22 Impressions: Brain MRI with MRA 03/27/19 00:00 IMPRESSION: Diminutive appearance of right vertebral artery, incompletely assessed. Otherwise no significant vascular abnormalities CAROTID STENOSIS REFERENCE USING NASCET CRITERIA: % ICA stenosis = (1 - narrowest ICA diameter/diameter of distal cervical ICA) x 100. Mild - <50% stenosis. Moderate - 50-69% stenosis. Severe - 70-94% stenosis. Near occlusion - 95-99% stenosis. Occluded - 100% stenosis. Head MRI 03/27/19 00:00 IMPRESSION: No acute intracranial findings. Carotid Doppler Study 03/30/19 00:00 IMPRESSION: 50 to 69% diameter narrowing by velocity criteria right proximal ICA No flow significant stenosis left carotid bifurcation Antegrade pulsatile vertebral artery flow bilaterally, left vertebral artery is dominant Head CT 04/12/19 11:13 IMPRESSION: Chronic ischemic changes. EVIDENCE OF ACUTE STROKE: NO. Assessment and Plan - Diagnosis (1) Encephalopathy Is this a current diagnosis for this admission?: Yes Plan: Likely at new baseline Acute metabolic encephalopathy secondary to acute renal failure complicated by vascular dementia. Patient's sister reported baseline confusion to previous provider. Exacerbated by hospitalization Mental health consultation reviewed; medication recommendations implemented. Depakote has been increased to 500 mg p.o. every 12. Continue Risperdal 0.25 mg twice daily and clonidine 0.1 mg transdermal patch per mental health recommendations. We will avoid benzodiazepines as able; will discontinue scheduled nightly Valium. 04/21/2019-likely at baseline. Patient remains on Depakote 500 mg p.o. every 12 hours, Risperdal 0.25 mg p.o. twice daily and clonidine patch 0.1 mg per mental health recommendations. Avoid benzodiazepines and Valium. 04/22/2019-continues at baseline. Continue current medication therapy as stated above 04/23/2019-continues at baseline. (2) Vascular dementia Is this a current diagnosis for this admission?: Yes Plan: Supportive care; remaining management as above. 04/21/2019-supportive care see above 04/22/2019-continue supportive care 04/23/2019-supportive care, most likely baseline (3) Hypertension Is this a current diagnosis for this admission?: Yes Plan: Normotensive blood pressures today. Continue amlodipine 5 mg daily Have added clonidine patch for behavioral disturbance; monitor for effect on blood pressure. Currently on a regular diet. 04/21/2019 stable continue current management and monitor 04/22/2019-stable continue to monitor 04/23/2019-stable (4) Acute renal failure Qualifiers: Acute renal failure type: unspecified Qualified Code(s): N17.9 - Acute kidney failure, unspecified Is this a current diagnosis for this admission?: Yes Plan: Resolved. Patient was admitted with a creatinine of 3.61, now 1.30. Close to baseline. Patient does have adequate p.o. intake. Encourage p.o. fluids. We will avoid nephrotoxic medications as able. We will monitor with intermittent chemistries. 04/21/2019-stable continue to follow 04/22/2019-stable 04/23/2019-stable (5) Rhinitis Qualifiers: Rhinitis type: acute Qualified Code(s): J00 - Acute nasopharyngitis [common cold] Is this a current diagnosis for this admission?: Yes Plan: Patient complained of sore throat today; found to have pharyngeal erythema and postnasal drip. Start Flonase. Chloraseptic spray as needed. Encourage p.o. fluids. 04/21/2019-continue Flonase 04/22/2019-Flonase continues 04/23/2019-continue Flonase - Time Time Spent with patient: 15-24 minutes
[2019-04-23] MEDS: ZIPRASIDONE MESYLATE INJ/PF 20 MG SDV IM PRN (17:31)
[2019-04-23] MEDS: ASPIRIN 81 MG TABLET, ENT COATED PO SCH (22:22)
[2019-04-23] MEDS: ATORVASTATIN CALCIUM 40 MG TABLET PO SCH (22:22)
[2019-04-24] MEDS: RISPERIDONE 0.25 MG TABLET PO SCH ×2 (08:00→17:17)
--- NOTE | 2019-04-24 08:07 | PDOC PROGRESS REPORT ---
Subjective Progress Note for:: 04/24/19 Subjective:: March 29, 2019-patient is confused will not answer questions at this time. Remains in four-point restraints March 30, 2019-patient remains confused only oriented to self. Only in two- point restraints at this time 04/21/2019-no complaints at this time 04/22/2019-no complaints this a.m. eating breakfast 04/23/2019-no complaints this a.m. 9 -no complaints at this time Reason For Visit: ALTERED MENTAL STATUS,ATAXIA, CVA HYPERTENSION Physical Exam Vital Signs: Temp Pulse Resp BP Pulse Ox 98.1 F 81 20 97/68 L 97 04/23/19 19:27 04/23/19 19:27 04/23/19 19:27 04/23/19 19:27 04/23/19 19:27 Intake & Output 04/23/19 04/24/19 04/25/19 06:59 06:59 06:59 Intake Total 1018 720 Balance 1018 720 Weight 63.5 kg 63.7 kg General appearance: PRESENT: no acute distress, well-developed, well-nourished Neck exam: ABSENT: carotid bruit, JVD, lymphadenopathy, thyromegaly Respiratory exam: PRESENT: clear to auscultation jackie. ABSENT: rales, rhonchi, wheezes Cardiovascular exam: PRESENT: RRR. ABSENT: diastolic murmur, rubs, systolic murmur Pulses: PRESENT: normal dorsalis pedis pul Vascular exam: PRESENT: normal capillary refill GI/Abdominal exam: PRESENT: normal bowel sounds, soft. ABSENT: distended, guarding, mass, organolmegaly, rebound, tenderness Extremities exam: PRESENT: full ROM. ABSENT: clubbing, pedal edema Neurological exam: PRESENT: alert, awake Psychiatric exam: PRESENT: flat affect Skin exam: PRESENT: dry, intact, warm. ABSENT: cyanosis, rash Results Laboratory Results: 04/12/19 09:02 04/14/19 05:30 03/27/19 03/27/19 16:32 16:32 Creatine Kinase 54 L CK-MB (CK-2) < 0.22 Impressions: Brain MRI with MRA 03/27/19 00:00 IMPRESSION: Diminutive appearance of right vertebral artery, incompletely assessed. Otherwise no significant vascular abnormalities CAROTID STENOSIS REFERENCE USING NASCET CRITERIA: % ICA stenosis = (1 - narrowest ICA diameter/diameter of distal cervical ICA) x 100. Mild - <50% stenosis. Moderate - 50-69% stenosis. Severe - 70-94% stenosis. Near occlusion - 95-99% stenosis. Occluded - 100% stenosis. Head MRI 03/27/19 00:00 IMPRESSION: No acute intracranial findings. Carotid Doppler Study 03/30/19 00:00 IMPRESSION: 50 to 69% diameter narrowing by velocity criteria right proximal ICA No flow significant stenosis left carotid bifurcation Antegrade pulsatile vertebral artery flow bilaterally, left vertebral artery is dominant Head CT 04/12/19 11:13 IMPRESSION: Chronic ischemic changes. EVIDENCE OF ACUTE STROKE: NO. Assessment and Plan - Diagnosis (1) Encephalopathy Is this a current diagnosis for this admission?: Yes Plan: Likely at new baseline Acute metabolic encephalopathy secondary to acute renal failure complicated by vascular dementia. Patient's sister reported baseline confusion to previous provider. Exacerbated by hospitalization Mental health consultation reviewed; medication recommendations implemented. Depakote has been increased to 500 mg p.o. every 12. Continue Risperdal 0.25 mg twice daily and clonidine 0.1 mg transdermal patch per mental health recommendations. We will avoid benzodiazepines as able; will discontinue scheduled nightly Valium. 04/21/2019-likely at baseline. Patient remains on Depakote 500 mg p.o. every 12 hours, Risperdal 0.25 mg p.o. twice daily and clonidine patch 0.1 mg per mental health recommendations. Avoid benzodiazepines and Valium. 04/22/2019-continues at baseline. Continue current medication therapy as stated above 04/23/2019-continues at baseline. 04/24/2019-at baseline (2) Vascular dementia Is this a current diagnosis for this admission?: Yes Plan: Supportive care; remaining management as above. 04/21/2019-supportive care see above 04/22/2019-continue supportive care 04/23/2019-supportive care, most likely baseline 04/24/2019-continue supportive measures (3) Hypertension Is this a current diagnosis for this admission?: Yes Plan: Normotensive blood pressures today. Continue amlodipine 5 mg daily Have added clonidine patch for behavioral disturbance; monitor for effect on blood pressure. Currently on a regular diet. 04/21/2019 stable continue current management and monitor 04/22/2019-stable continue to monitor 04/23/2019-stable 04/24/2019-stable continue to monitor (4) Acute renal failure Qualifiers: Acute renal failure type: unspecified Qualified Code(s): N17.9 - Acute kidney failure, unspecified Is this a current diagnosis for this admission?: Yes Plan: Resolved. Patient was admitted with a creatinine of 3.61, now 1.30. Close to baseline. Patient does have adequate p.o. intake. Encourage p.o. fluids. We will avoid nephrotoxic medications as able. We will monitor with intermittent chemistries. 04/21/2019-stable continue to follow 04/22/2019-stable 04/23/2019-stable 04/24/2019-stable (5) Rhinitis Qualifiers: Rhinitis type: acute Qualified Code(s): J00 - Acute nasopharyngitis [common cold] Is this a current diagnosis for this admission?: Yes Plan: Patient complained of sore throat today; found to have pharyngeal erythema and postnasal drip. Start Flonase. Chloraseptic spray as needed. Encourage p.o. fluids. 04/21/2019-continue Flonase 04/22/2019-Flonase continues 04/23/2019-continue Flonase 04/24/2019-Flonase - Time Time Spent with patient: 15-24 minutes
[2019-04-24] MEDS: ENOXAPARIN SODIUM INJ 40 MG/0.4 ML DISP.SYRIN SUBCUT SCH (09:27)
[2019-04-24] MEDS: AMLODIPINE BESYLATE 10 MG TABLET PO SCH (09:28)
[2019-04-24] MEDS: FENOFIBRATE NANOCRYSTALLIZED 145 MG TABLET PO SCH (09:28)
[2019-04-24] MEDS: FLUTICASONE NASAL SPRAY 50 MCG/SPRY 120 SPRAY/16 GM NASL SCH (09:28)
[2019-04-24] MEDS: FAMOTIDINE 20 MG TABLET PO SCH ×2 (09:28→21:18)
[2019-04-24] MEDS: DIVALPROEX SODIUM 250 MG TAB.SR.24H PO SCH ×2 (09:28→21:17)
[2019-04-24] MEDS: DOCUSATE SODIUM 100 MG CAPSULE PO SCH ×2 (09:28→17:14)
[2019-04-24] MEDS: ATORVASTATIN CALCIUM 40 MG TABLET PO SCH (21:18)
[2019-04-24] MEDS: ASPIRIN 81 MG TABLET, ENT COATED PO SCH (21:18)
[2019-04-25] MEDS ORDERED: HALOPERIDOL LACTATE INJ 5 MG/1 ML VIAL ONE (04:14)
[2019-04-25] MEDS: HALOPERIDOL LACTATE INJ 5 MG/1 ML VIAL IM PRN (04:29)
--- NOTE | 2019-04-25 08:12 | PDOC PROGRESS REPORT ---
Subjective Progress Note for:: 04/25/19 Subjective:: March 29, 2019-patient is confused will not answer questions at this time. Remains in four-point restraints March 30, 2019-patient remains confused only oriented to self. Only in two- point restraints at this time 04/21/2019-no complaints at this time 04/22/2019-no complaints this a.m. eating breakfast 04/23/2019-no complaints this a.m. 2018-no complaints at this time 04/25/2019-no complaints. Patient remains pleasantly confused Reason For Visit: ALTERED MENTAL STATUS,ATAXIA, CVA HYPERTENSION Physical Exam Vital Signs: Temp Pulse Resp BP Pulse Ox 97.9 F 70 19 120/67 96 04/24/19 23:00 04/25/19 03:00 04/25/19 03:00 04/25/19 03:00 04/25/19 03:00 Intake & Output 04/24/19 04/25/19 04/26/19 06:59 06:59 06:59 Intake Total 720 780 Balance 720 780 Weight 63.7 kg 64 kg General appearance: PRESENT: no acute distress, well-developed, well-nourished Neck exam: ABSENT: carotid bruit, JVD, lymphadenopathy, thyromegaly Respiratory exam: PRESENT: clear to auscultation jackie. ABSENT: rales, rhonchi, wheezes Cardiovascular exam: PRESENT: RRR. ABSENT: diastolic murmur, rubs, systolic murmur Pulses: PRESENT: normal dorsalis pedis pul GI/Abdominal exam: PRESENT: normal bowel sounds, soft. ABSENT: distended, guarding, mass, organolmegaly, rebound, tenderness Neurological exam: PRESENT: alert, awake Psychiatric exam: PRESENT: appropriate affect, normal mood. ABSENT: homicidal ideation, suicidal ideation Skin exam: PRESENT: dry, intact, warm. ABSENT: cyanosis, rash Results Laboratory Results: 04/12/19 09:02 04/14/19 05:30 03/27/19 03/27/19 16:32 16:32 Creatine Kinase 54 L CK-MB (CK-2) < 0.22 Impressions: Brain MRI with MRA 03/27/19 00:00 IMPRESSION: Diminutive appearance of right vertebral artery, incompletely assessed. Otherwise no significant vascular abnormalities CAROTID STENOSIS REFERENCE USING NASCET CRITERIA: % ICA stenosis = (1 - narrowest ICA diameter/diameter of distal cervical ICA) x 100. Mild - <50% stenosis. Moderate - 50-69% stenosis. Severe - 70-94% stenosis. Near occlusion - 95-99% stenosis. Occluded - 100% stenosis. Head MRI 03/27/19 00:00 IMPRESSION: No acute intracranial findings. Carotid Doppler Study 03/30/19 00:00 IMPRESSION: 50 to 69% diameter narrowing by velocity criteria right proximal ICA No flow significant stenosis left carotid bifurcation Antegrade pulsatile vertebral artery flow bilaterally, left vertebral artery is dominant Head CT 04/12/19 11:13 IMPRESSION: Chronic ischemic changes. EVIDENCE OF ACUTE STROKE: NO. Assessment and Plan - Diagnosis (1) Encephalopathy Is this a current diagnosis for this admission?: Yes Plan: Likely at new baseline Acute metabolic encephalopathy secondary to acute renal failure complicated by vascular dementia. Patient's sister reported baseline confusion to previous provider. Exacerbated by hospitalization Mental health consultation reviewed; medication recommendations implemented. Depakote has been increased to 500 mg p.o. every 12. Continue Risperdal 0.25 mg twice daily and clonidine 0.1 mg transdermal patch per mental health recommendations. We will avoid benzodiazepines as able; will discontinue scheduled nightly Valium. 04/21/2019-likely at baseline. Patient remains on Depakote 500 mg p.o. every 12 hours, Risperdal 0.25 mg p.o. twice daily and clonidine patch 0.1 mg per mental health recommendations. Avoid benzodiazepines and Valium. 04/22/2019-continues at baseline. Continue current medication therapy as stated above 04/23/2019-continues at baseline. 04/24/2019-at baseline 04/25/2019-continues at baseline (2) Vascular dementia Is this a current diagnosis for this admission?: Yes Plan: Supportive care; remaining management as above. 04/21/2019-supportive care see above 04/22/2019-continue supportive care 04/23/2019-supportive care, most likely baseline 04/24/2019-continue supportive measures 04/25/2019-continue supportive measures, most likely baseline (3) Hypertension Is this a current diagnosis for this admission?: Yes Plan: Normotensive blood pressures today. Continue amlodipine 5 mg daily Have added clonidine patch for behavioral disturbance; monitor for effect on blood pressure. Currently on a regular diet. 04/21/2019 stable continue current management and monitor 04/22/2019-stable continue to monitor 04/23/2019-stable 04/24/2019-stable continue to monitor 04/25/2019-stable continue to follow (4) Acute renal failure Qualifiers: Acute renal failure type: unspecified Qualified Code(s): N17.9 - Acute kidney failure, unspecified Is this a current diagnosis for this admission?: Yes Plan: Resolved. Patient was admitted with a creatinine of 3.61, now 1.30. Close to baseline. Patient does have adequate p.o. intake. Encourage p.o. fluids. We will avoid nephrotoxic medications as able. We will monitor with intermittent chemistries. 04/21/2019-stable continue to follow 04/22/2019-stable 04/23/2019-stable 04/24/2019-stable 2018-stable (5) Rhinitis Qualifiers: Rhinitis type: acute Qualified Code(s): J00 - Acute nasopharyngitis [common cold] Is this a current diagnosis for this admission?: Yes Plan: Patient complained of sore throat today; found to have pharyngeal erythema and postnasal drip. Start Flonase. Chloraseptic spray as needed. Encourage p.o. fluids. 04/21/2019-continue Flonase 04/22/2019-Flonase continues 04/23/2019-continue Flonase 04/24/2019-Flonase 04/25/2019-continue Flonase - Time Time Spent with patient: 15-24 minutes
[2019-04-25] MEDS: DOCUSATE SODIUM 100 MG CAPSULE PO SCH ×2 (09:04→17:16)
[2019-04-25] MEDS: AMLODIPINE BESYLATE 10 MG TABLET PO SCH (09:07)
[2019-04-25] MEDS: RISPERIDONE 0.25 MG TABLET PO SCH ×2 (09:07→16:13)
[2019-04-25] MEDS: FLUTICASONE NASAL SPRAY 50 MCG/SPRY 120 SPRAY/16 GM NASL SCH (09:08)
[2019-04-25] MEDS: FAMOTIDINE 20 MG TABLET PO SCH ×2 (09:08→21:32)
[2019-04-25] MEDS: FENOFIBRATE NANOCRYSTALLIZED 145 MG TABLET PO SCH (09:08)
[2019-04-25] MEDS: DIVALPROEX SODIUM 250 MG TAB.SR.24H PO SCH ×2 (09:09→21:32)
[2019-04-25] MEDS: ENOXAPARIN SODIUM INJ 40 MG/0.4 ML DISP.SYRIN SUBCUT SCH (09:09)
[2019-04-25] MEDS: ASPIRIN 81 MG TABLET, ENT COATED PO SCH (21:32)
[2019-04-25] MEDS: ATORVASTATIN CALCIUM 40 MG TABLET PO SCH (21:32)
--- NOTE | 2019-04-26 08:08 | PDOC PROGRESS REPORT ---
Subjective Progress Note for:: 04/26/19 Subjective:: March 29, 2019-patient is confused will not answer questions at this time. Remains in four-point restraints March 30, 2019-patient remains confused only oriented to self. Only in two- point restraints at this time 04/21/2019-no complaints at this time 04/22/2019-no complaints this a.m. eating breakfast 04/23/2019-no complaints this a.m. 2018-no complaints at this time 04/25/2019-no complaints. Patient remains pleasantly confused 04/26/2019-no complaints at this time Reason For Visit: ALTERED MENTAL STATUS,ATAXIA, CVA HYPERTENSION Physical Exam Vital Signs: Temp Pulse Resp BP Pulse Ox 97.9 F 55 L 20 118/66 95 04/26/19 03:55 04/26/19 03:55 04/26/19 03:55 04/26/19 03:55 04/26/19 03:55 Intake & Output 04/25/19 04/26/19 04/27/19 06:59 06:59 06:59 Intake Total 780 780 Output Total 0 Balance 780 780 Weight 64 kg 62.9 kg General appearance: PRESENT: no acute distress, well-developed, well-nourished Neck exam: ABSENT: carotid bruit, JVD, lymphadenopathy, thyromegaly Respiratory exam: PRESENT: clear to auscultation jackie. ABSENT: rales, rhonchi, wheezes Cardiovascular exam: PRESENT: RRR. ABSENT: diastolic murmur, rubs, systolic murmur Pulses: PRESENT: normal dorsalis pedis pul Vascular exam: PRESENT: normal capillary refill GI/Abdominal exam: PRESENT: normal bowel sounds, soft. ABSENT: distended, guarding, mass, organolmegaly, rebound, tenderness Extremities exam: PRESENT: full ROM. ABSENT: calf tenderness, clubbing, pedal edema Neurological exam: PRESENT: awake Psychiatric exam: PRESENT: other - Pleasantly confused Skin exam: PRESENT: dry, intact, warm. ABSENT: cyanosis, rash Results Laboratory Results: 04/12/19 09:02 04/14/19 05:30 03/27/19 03/27/19 16:32 16:32 Creatine Kinase 54 L CK-MB (CK-2) < 0.22 Impressions: Brain MRI with MRA 03/27/19 00:00 IMPRESSION: Diminutive appearance of right vertebral artery, incompletely assessed. Otherwise no significant vascular abnormalities CAROTID STENOSIS REFERENCE USING NASCET CRITERIA: % ICA stenosis = (1 - narrowest ICA diameter/diameter of distal cervical ICA) x 100. Mild - <50% stenosis. Moderate - 50-69% stenosis. Severe - 70-94% stenosis. Near occlusion - 95-99% stenosis. Occluded - 100% stenosis. Head MRI 03/27/19 00:00 IMPRESSION: No acute intracranial findings. Carotid Doppler Study 03/30/19 00:00 IMPRESSION: 50 to 69% diameter narrowing by velocity criteria right proximal ICA No flow significant stenosis left carotid bifurcation Antegrade pulsatile vertebral artery flow bilaterally, left vertebral artery is dominant Head CT 04/12/19 11:13 IMPRESSION: Chronic ischemic changes. EVIDENCE OF ACUTE STROKE: NO. Assessment and Plan - Diagnosis (1) Encephalopathy Is this a current diagnosis for this admission?: Yes Plan: Likely at new baseline Acute metabolic encephalopathy secondary to acute renal failure complicated by vascular dementia. Patient's sister reported baseline confusion to previous provider. Exacerbated by hospitalization Mental health consultation reviewed; medication recommendations implemented. Depakote has been increased to 500 mg p.o. every 12. Continue Risperdal 0.25 mg twice daily and clonidine 0.1 mg transdermal patch per mental health recommendations. We will avoid benzodiazepines as able; will discontinue scheduled nightly Valium. 04/21/2019-likely at baseline. Patient remains on Depakote 500 mg p.o. every 12 hours, Risperdal 0.25 mg p.o. twice daily and clonidine patch 0.1 mg per mental health recommendations. Avoid benzodiazepines and Valium. 04/22/2019-continues at baseline. Continue current medication therapy as stated above 04/23/2019-continues at baseline. 04/24/2019-at baseline 04/25/2019-continues at baseline 04/26/2019-continues at baseline (2) Vascular dementia Is this a current diagnosis for this admission?: Yes Plan: Supportive care; remaining management as above. 04/21/2019-supportive care see above 04/22/2019-continue supportive care 04/23/2019-supportive care, most likely baseline 04/24/2019-continue supportive measures 04/25/2019-continue supportive measures, most likely baseline 04/26/2019-continue supportive measures (3) Hypertension Is this a current diagnosis for this admission?: Yes Plan: Normotensive blood pressures today. Continue amlodipine 5 mg daily Have added clonidine patch for behavioral disturbance; monitor for effect on blood pressure. Currently on a regular diet. 04/21/2019 stable continue current management and monitor 04/22/2019-stable continue to monitor 04/23/2019-stable 04/24/2019-stable continue to monitor 04/25/2019-stable continue to follow 04/26/2019-stable (4) Acute renal failure Qualifiers: Acute renal failure type: unspecified Qualified Code(s): N17.9 - Acute kidney failure, unspecified Is this a current diagnosis for this admission?: Yes Plan: Resolved. Patient was admitted with a creatinine of 3.61, now 1.30. Close to baseline. Patient does have adequate p.o. intake. Encourage p.o. fluids. We will avoid nephrotoxic medications as able. We will monitor with intermittent chemistries. 04/21/2019-stable continue to follow 04/22/2019-stable 04/23/2019-stable 04/24/2019-stable 2018-04/26/2019 stable (5) Rhinitis Qualifiers: Rhinitis type: acute Qualified Code(s): J00 - Acute nasopharyngitis [common cold] Is this a current diagnosis for this admission?: Yes Plan: Patient complained of sore throat today; found to have pharyngeal erythema and postnasal drip. Start Flonase. Chloraseptic spray as needed. Encourage p.o. fluids. 04/21/2019-continue Flonase 04/22/2019-Flonase continues 04/23/2019-continue Flonase 04/24/2019-Flonase 04/25/2019-continue Flonase 04/26/2019-stable - Time Time Spent with patient: 15-24 minutes
[2019-04-26] MEDS: RISPERIDONE 0.25 MG TABLET PO SCH ×2 (08:50→16:36)
[2019-04-26] MEDS: AMLODIPINE BESYLATE 10 MG TABLET PO SCH (09:24)
[2019-04-26] MEDS: DOCUSATE SODIUM 100 MG CAPSULE PO SCH ×2 (09:25→18:15)
[2019-04-26] MEDS: FAMOTIDINE 20 MG TABLET PO SCH (09:25)
[2019-04-26] MEDS: FENOFIBRATE NANOCRYSTALLIZED 145 MG TABLET PO SCH (09:25)
[2019-04-26] MEDS: FLUTICASONE NASAL SPRAY 50 MCG/SPRY 120 SPRAY/16 GM NASL SCH (09:26)
[2019-04-26] MEDS: DIVALPROEX SODIUM 250 MG TAB.SR.24H PO SCH ×2 (09:26→21:12)
[2019-04-26] MEDS: ENOXAPARIN SODIUM INJ 40 MG/0.4 ML DISP.SYRIN SUBCUT SCH (09:26)
[2019-04-26] MEDS: ATORVASTATIN CALCIUM 40 MG TABLET PO SCH (21:11)
[2019-04-27] MEDS: HALOPERIDOL LACTATE INJ 5 MG/1 ML VIAL IM PRN ×2 (01:06→05:53)
[2019-04-27 06:22] LABS: HEMATOCRIT 34.4 % (37.9-51.0); HEMOGLOBIN 11.7 g/dL (13.5-17.0); MEAN CORPUSCULAR HEMOGLOBIN 30.1 pg (27.0-33.4); MEAN CORPUSCULAR HGB CONC 33.9 g/dL (32.0-36.0); MEAN CORPUSCULAR VOLUME 89 fl (80-97); PLATELET COUNT 410 10^3/uL (150-450); RED BLOOD COUNT 3.87 10^6/uL (4.35-5.55); RED CELL DISTRIBUTION WIDTH 14.3 % (11.5-14.0); WHITE BLOOD COUNT 10.6 10^3/uL (4.0-10.5)
[2019-04-27 06:57] LABS: ANION GAP 13 (5-19); BLOOD UREA NITROGEN 31 mg/dL (7-20); CALCIUM 9.4 mg/dL (8.4-10.2); CARBON DIOXIDE 20 mmol/L (22-30); CHLORIDE 106 mmol/L (98-107); GLUCOSE 89 mg/dL (75-110); POTASSIUM 4.3 mmol/L (3.6-5.0)
[2019-04-27] MEDS: RISPERIDONE 0.25 MG TABLET PO SCH ×2 (07:58→15:03)
--- NOTE | 2019-04-27 09:55 | PDOC PROGRESS REPORT ---
Subjective Progress Note for:: 04/27/19 Subjective:: March 29, 2019-patient is confused will not answer questions at this time. Remains in four-point restraints March 30, 2019-patient remains confused only oriented to self. Only in two- point restraints at this time 04/21/2019-no complaints at this time 04/22/2019-no complaints this a.m. eating breakfast 04/23/2019-no complaints this a.m. 2018-no complaints at this time 04/25/2019-no complaints. Patient remains pleasantly confused 04/26/2019-no complaints at this time 04/27/2019-no complaints this a.m. Reason For Visit: ALTERED MENTAL STATUS,ATAXIA, CVA HYPERTENSION Physical Exam Vital Signs: Temp Pulse Resp BP Pulse Ox 98.0 F 58 L 18 96/55 L 97 04/27/19 08:00 04/27/19 08:00 04/27/19 08:00 04/27/19 08:00 04/27/19 08:00 Intake & Output 04/26/19 04/27/19 04/28/19 06:59 06:59 06:59 Intake Total 780 1005 Output Total 0 Balance 780 1005 Weight 62.9 kg 65.1 kg General appearance: PRESENT: no acute distress, well-developed, well-nourished Neck exam: ABSENT: carotid bruit, JVD, lymphadenopathy, thyromegaly Respiratory exam: PRESENT: clear to auscultation jackie. ABSENT: rales, rhonchi, wheezes Cardiovascular exam: PRESENT: RRR. ABSENT: diastolic murmur, rubs, systolic murmur Pulses: PRESENT: +1 pedal pulses bilateral Vascular exam: PRESENT: normal capillary refill GI/Abdominal exam: PRESENT: normal bowel sounds, soft. ABSENT: distended, guarding, mass, organolmegaly, rebound, tenderness Extremities exam: PRESENT: full ROM. ABSENT: clubbing, pedal edema Neurological exam: PRESENT: other - Confused Psychiatric exam: PRESENT: other - Confused Skin exam: PRESENT: dry, intact, warm. ABSENT: cyanosis, rash Results Laboratory Results: 04/27/19 05:39 04/27/19 05:39 04/27/19 04/27/19 05:39 05:39 WBC 10.6 H RBC 3.87 L Hgb 11.7 L Hct 34.4 L MCV 89 MCH 30.1 MCHC 33.9 RDW 14.3 H Plt Count 410 Sodium 139.3 Potassium 4.3 Chloride 106 Carbon Dioxide 20 L Anion Gap 13 BUN 31 H Creatinine 1.13 Est GFR ( Amer) > 60 Glucose 89 Calcium 9.4 03/27/19 03/27/19 16:32 16:32 Creatine Kinase 54 L CK-MB (CK-2) < 0.22 Impressions: Brain MRI with MRA 03/27/19 00:00 IMPRESSION: Diminutive appearance of right vertebral artery, incompletely assessed. Otherwise no significant vascular abnormalities CAROTID STENOSIS REFERENCE USING NASCET CRITERIA: % ICA stenosis = (1 - narrowest ICA diameter/diameter of distal cervical ICA) x 100. Mild - <50% stenosis. Moderate - 50-69% stenosis. Severe - 70-94% stenosis. Near occlusion - 95-99% stenosis. Occluded - 100% stenosis. Head MRI 03/27/19 00:00 IMPRESSION: No acute intracranial findings. Carotid Doppler Study 03/30/19 00:00 IMPRESSION: 50 to 69% diameter narrowing by velocity criteria right proximal ICA No flow significant stenosis left carotid bifurcation Antegrade pulsatile vertebral artery flow bilaterally, left vertebral artery is dominant Head CT 04/12/19 11:13 IMPRESSION: Chronic ischemic changes. EVIDENCE OF ACUTE STROKE: NO. Assessment and Plan - Diagnosis (1) Encephalopathy Is this a current diagnosis for this admission?: Yes Plan: Likely at new baseline Acute metabolic encephalopathy secondary to acute renal failure complicated by vascular dementia. Patient's sister reported baseline confusion to previous provider. Exacerbated by hospitalization Mental health consultation reviewed; medication recommendations implemented. Depakote has been increased to 500 mg p.o. every 12. Continue Risperdal 0.25 mg twice daily and clonidine 0.1 mg transdermal patch per mental health recommendations. We will avoid benzodiazepines as able; will discontinue scheduled nightly Valium. 04/21/2019-likely at baseline. Patient remains on Depakote 500 mg p.o. every 12 hours, Risperdal 0.25 mg p.o. twice daily and clonidine patch 0.1 mg per mental health recommendations. Avoid benzodiazepines and Valium. 04/22/2019-continues at baseline. Continue current medication therapy as stated above 04/23/2019-continues at baseline. 04/24/2019-at baseline 04/25/2019-continues at baseline 04/26/2019-continues at baseline 04/27/2019 baseline (2) Vascular dementia Is this a current diagnosis for this admission?: Yes Plan: Supportive care; remaining management as above. 04/21/2019-supportive care see above 04/22/2019-continue supportive care 04/23/2019-supportive care, most likely baseline 04/24/2019-continue supportive measures 04/25/2019-continue supportive measures, most likely baseline 04/26/2019-continue supportive measures 04/27/2019-supportive measures (3) Hypertension Is this a current diagnosis for this admission?: Yes Plan: Normotensive blood pressures today. Continue amlodipine 5 mg daily Have added clonidine patch for behavioral disturbance; monitor for effect on blood pressure. Currently on a regular diet. 04/21/2019 stable continue current management and monitor 04/22/2019-stable continue to monitor 04/23/2019-stable 04/24/2019-stable continue to monitor 04/25/2019-stable continue to follow 04/26/2019-2018- continue to follow (4) Acute renal failure Qualifiers: Acute renal failure type: unspecified Qualified Code(s): N17.9 - Acute kidney failure, unspecified Is this a current diagnosis for this admission?: Yes Plan: Resolved. Patient was admitted with a creatinine of 3.61, now 1.30. Close to baseline. Patient does have adequate p.o. intake. Encourage p.o. fluids. We will avoid nephrotoxic medications as able. We will monitor with intermittent chemistries. 04/21/2019-stable continue to follow 04/22/2019-stable 04/23/2019-stable 04/24/2019-stable 2018-stable 04/26/2019 stable 04/27/2019-stable continue to follow (5) Rhinitis Qualifiers: Rhinitis type: acute Qualified Code(s): J00 - Acute nasopharyngitis [common cold] Is this a current diagnosis for this admission?: Yes - Time Time Spent with patient: 15-24 minutes
[2019-04-27] MEDS: FENOFIBRATE NANOCRYSTALLIZED 145 MG TABLET PO SCH (10:28)
[2019-04-27] MEDS: DOCUSATE SODIUM 100 MG CAPSULE PO SCH ×2 (10:28→17:19)
[2019-04-27] MEDS: DIVALPROEX SODIUM 250 MG TAB.SR.24H PO SCH ×2 (10:28→21:25)
[2019-04-27] MEDS: AMLODIPINE BESYLATE 10 MG TABLET PO SCH (10:28)
[2019-04-27] MEDS: ENOXAPARIN SODIUM INJ 40 MG/0.4 ML DISP.SYRIN SUBCUT SCH (10:28)
[2019-04-27] MEDS: FLUTICASONE NASAL SPRAY 50 MCG/SPRY 120 SPRAY/16 GM NASL SCH (10:29)
[2019-04-27] MEDS ORDERED: ZIPRASIDONE MESYLATE INJ/PF 20 MG SDV IM PRN ×2 (14:42→15:00)
[2019-04-27] MEDS ORDERED: FENOFIBRATE NANOCRYSTALLIZED 145 MG TABLET PO SCH (16:00)
[2019-04-27] MEDS: ATORVASTATIN CALCIUM 40 MG TABLET PO SCH (21:25)
[2019-04-28] MEDS: RISPERIDONE 0.25 MG TABLET PO SCH ×2 (08:58→15:21)
[2019-04-28] MEDS: CLONIDINE 0.1 MG/24 HR PATCH.TDWK TD SCH (10:42)
[2019-04-28] MEDS: DIVALPROEX SODIUM 250 MG TAB.SR.24H PO SCH ×2 (10:42→21:59)
[2019-04-28] MEDS: DOCUSATE SODIUM 100 MG CAPSULE PO SCH ×2 (10:42→17:24)
[2019-04-28] MEDS: FLUTICASONE NASAL SPRAY 50 MCG/SPRY 120 SPRAY/16 GM NASL SCH (10:42)
[2019-04-28] MEDS: FENOFIBRATE NANOCRYSTALLIZED 145 MG TABLET PO SCH (10:42)
[2019-04-28] MEDS: ENOXAPARIN SODIUM INJ 40 MG/0.4 ML DISP.SYRIN SUBCUT SCH (10:43)
[2019-04-28] MEDS: AMLODIPINE BESYLATE 10 MG TABLET PO SCH (10:43)
--- NOTE | 2019-04-28 19:05 | PDOC PROGRESS REPORT ---
Subjective Progress Note for:: 04/28/19 Subjective:: Patient is a 58-year-old male with a past medical history significant for prior CVA, vascular dementia, Hypertension, hyperlipidemia, who was admitted 03/27/2019 for WAQAS. The patient was seen on morning rounds. He was found resting in bed, comfortably, on room air eating his breakfast. He was socially appropriate; and able to tell me his name and that we were in [place]. He then chuckled at all of my questions and told be that "breakfast is the most important." He denies pain and shortness of breath or cough. He does appear to be comfortable and not in any acute distress. ROS is limited secondary to mental status. No concerns per nursing. Reason For Visit: ALTERED MENTAL STATUS,ATAXIA, CVA HYPERTENSION Physical Exam Vital Signs: Temp Pulse Resp BP Pulse Ox 98.2 F 76 16 97/48 L 96 04/28/19 16:01 04/28/19 16:01 04/28/19 16:01 04/28/19 16:01 04/28/19 16:01 Intake & Output 04/27/19 04/28/19 04/29/19 06:59 06:59 06:59 Intake Total 1005 1440 290 Balance 1005 1440 290 Weight 65.1 kg 63.9 kg General appearance: PRESENT: no acute distress, cooperative, thin, well- developed Head exam: PRESENT: atraumatic, normocephalic Eye exam: PRESENT: conjunctiva pink, EOMI, PERRLA. ABSENT: scleral icterus Mouth exam: PRESENT: moist, tongue midline Teeth exam: PRESENT: poor dentation Neck exam: ABSENT: carotid bruit, JVD, lymphadenopathy, thyromegaly Respiratory exam: PRESENT: clear to auscultation jackie, symmetrical, unlabored. ABSENT: rales, rhonchi, wheezes Cardiovascular exam: PRESENT: RRR, +S1, +S2. ABSENT: diastolic murmur, rubs, systolic murmur Pulses: PRESENT: normal dorsalis pedis pul Vascular exam: PRESENT: normal capillary refill GI/Abdominal exam: PRESENT: normal bowel sounds, soft. ABSENT: distended, guarding, mass, organolmegaly, rebound, tenderness Rectal exam: PRESENT: deferred Extremities exam: PRESENT: full ROM. ABSENT: calf tenderness, clubbing, pedal edema Neurological exam: PRESENT: alert, awake, oriented to person, oriented to place, CN II-XII grossly intact, other - Pleasantly confused, socially appropriate. ABSENT: oriented to time, oriented to situation, motor sensory deficit Psychiatric exam: PRESENT: appropriate affect, normal mood. ABSENT: homicidal ideation, suicidal ideation Skin exam: PRESENT: dry, intact, warm. ABSENT: cyanosis, rash Results Laboratory Results: 04/27/19 05:39 04/27/19 05:39 03/27/19 03/27/19 16:32 16:32 Creatine Kinase 54 L CK-MB (CK-2) < 0.22 Impressions: Brain MRI with MRA 03/27/19 00:00 IMPRESSION: Diminutive appearance of right vertebral artery, incompletely assessed. Otherwise no significant vascular abnormalities CAROTID STENOSIS REFERENCE USING NASCET CRITERIA: % ICA stenosis = (1 - narrowest ICA diameter/diameter of distal cervical ICA) x 100. Mild - <50% stenosis. Moderate - 50-69% stenosis. Severe - 70-94% stenosis. Near occlusion - 95-99% stenosis. Occluded - 100% stenosis. Head MRI 03/27/19 00:00 IMPRESSION: No acute intracranial findings. Carotid Doppler Study 03/30/19 00:00 IMPRESSION: 50 to 69% diameter narrowing by velocity criteria right proximal ICA No flow significant stenosis left carotid bifurcation Antegrade pulsatile vertebral artery flow bilaterally, left vertebral artery is dominant Head CT 04/12/19 11:13 IMPRESSION: Chronic ischemic changes. EVIDENCE OF ACUTE STROKE: NO. Assessment and Plan - Diagnosis (1) Encephalopathy Is this a current diagnosis for this admission?: Yes Plan: Likely at new baseline Acute metabolic encephalopathy secondary to acute renal failure complicated by vascular dementia. Patient's sister reported baseline confusion to previous provider. Exacerbated by hospitalization Mental health consultation reviewed; medication recommendations implemented. Depakote has been increased to 500 mg p.o. every 12. Continue Risperdal 0.25 mg twice daily and clonidine 0.1 mg transdermal patch per mental health recommendations. Geodon prn acute agitation. We will avoid benzodiazepine (2) Vascular dementia Is this a current diagnosis for this admission?: Yes Plan: Supportive care; remaining management as above. (3) Hypertension Is this a current diagnosis for this admission?: Yes Plan: Slightly low blood pressures today. Have discontinued amlodipine Continue clonidine patch for behavioral disturbance; monitor for effect on blood pressure. Currently on a regular diet. (4) History of CVA (cerebrovascular accident) Is this a current diagnosis for this admission?: Yes Plan: Continue aspirin and statin therapy. Managed blood pressures with home medication regiment. (5) Acute renal failure Qualifiers: Acute renal failure type: unspecified Qualified Code(s): N17.9 - Acute kidney failure, unspecified Is this a current diagnosis for this admission?: Yes Plan: Resolved. Patient was admitted with a creatinine of 3.61, now 1.13. Patient does have adequate p.o. intake. Encourage p.o. fluids. We will avoid nephrotoxic medications as able. We will monitor with intermittent chemistries. (6) Rhinitis Qualifiers: Rhinitis type: acute Qualified Code(s): J00 - Acute nasopharyngitis [common cold] Is this a current diagnosis for this admission?: Yes Plan: Resolved. Continue flonase. Chloraseptic spray as needed. Encourage p.o. fluids. - Time Time Spent with patient: Less than 15 minutes Medications reviewed and adjusted accordingly: Yes Anticipated discharge: SNF - LTC/Memory Care Within: when bed available - Plan Summary Plan Summary: Medically stable for discharge to home w/ 24 hrs supervision vs. memory care facility.
[2019-04-28] MEDS: ATORVASTATIN CALCIUM 40 MG TABLET PO SCH (21:59)
[2019-04-29] MEDS: RISPERIDONE 0.25 MG TABLET PO SCH ×2 (08:01→15:37)
[2019-04-29] MEDS: DIVALPROEX SODIUM 250 MG TAB.SR.24H PO SCH ×2 (09:14→21:36)
[2019-04-29] MEDS: FENOFIBRATE NANOCRYSTALLIZED 145 MG TABLET PO SCH (09:14)
[2019-04-29] MEDS: DOCUSATE SODIUM 100 MG CAPSULE PO SCH ×2 (09:14→17:53)
[2019-04-29] MEDS: FLUTICASONE NASAL SPRAY 50 MCG/SPRY 120 SPRAY/16 GM NASL SCH (09:14)
--- NOTE | 2019-04-29 17:56 | PDOC PROGRESS REPORT ---
Subjective Progress Note for:: 04/29/19 Subjective:: Patient is a 58-year-old male with a past medical history significant for prior CVA, vascular dementia, Hypertension, hyperlipidemia, who was admitted 03/27/2019 for WAQAS. The patient was seen on morning rounds. He was found sitting up to the edge of the bed, comfortably, on room putting a puzzle together. The patient's aide tells me that he has been successful at multiple pieces, socially appropriate, and fully conversational with her today. He is orientated to self and place. He answers questions and follows directions today. He denies headache, chest pain, shortness of breath, cough, and abdominal discomfort. He does appear to be comfortable and not in any acute distress. ROS is somewhat limited secondary to mental status. No concerns per nursing. Reason For Visit: ALTERED MENTAL STATUS,ATAXIA, CVA HYPERTENSION Physical Exam Vital Signs: Temp Pulse Resp BP Pulse Ox 98.7 F 71 16 113/62 97 04/29/19 16:11 04/29/19 16:11 04/29/19 16:11 04/29/19 16:11 04/29/19 16:11 Intake & Output 04/28/19 04/29/19 04/30/19 06:59 06:59 06:59 Intake Total 1440 290 Balance 1440 290 Weight 63.9 kg 65.6 kg General appearance: PRESENT: no acute distress, cooperative, well-developed, well-nourished Head exam: PRESENT: atraumatic, normocephalic Eye exam: PRESENT: conjunctiva pink, EOMI, PERRLA. ABSENT: scleral icterus Ear exam: PRESENT: normal external ear exam Mouth exam: PRESENT: moist, tongue midline Teeth exam: PRESENT: poor dentation Neck exam: ABSENT: carotid bruit, JVD, lymphadenopathy, thyromegaly Respiratory exam: PRESENT: clear to auscultation jackie, symmetrical, unlabored. ABSENT: rales, rhonchi, wheezes Cardiovascular exam: PRESENT: RRR, +S1, +S2. ABSENT: diastolic murmur, rubs, systolic murmur Pulses: PRESENT: normal dorsalis pedis pul Vascular exam: PRESENT: normal capillary refill GI/Abdominal exam: PRESENT: normal bowel sounds, soft. ABSENT: distended, guarding, mass, organolmegaly, rebound, tenderness Rectal exam: PRESENT: deferred Extremities exam: PRESENT: full ROM. ABSENT: calf tenderness, clubbing, pedal edema Musculoskeletal exam: PRESENT: ambulatory Neurological exam: PRESENT: alert, awake, oriented to person, oriented to place, CN II-XII grossly intact, other - improved mentation today. ABSENT: oriented to time, oriented to situation, motor sensory deficit Psychiatric exam: PRESENT: appropriate affect, normal mood. ABSENT: homicidal ideation, suicidal ideation Skin exam: PRESENT: dry, intact, warm. ABSENT: cyanosis, rash Results Laboratory Results: 04/27/19 05:39 04/27/19 05:39 03/27/19 03/27/19 16:32 16:32 Creatine Kinase 54 L CK-MB (CK-2) < 0.22 Impressions: Brain MRI with MRA 03/27/19 00:00 IMPRESSION: Diminutive appearance of right vertebral artery, incompletely assessed. Otherwise no significant vascular abnormalities CAROTID STENOSIS REFERENCE USING NASCET CRITERIA: % ICA stenosis = (1 - narrowest ICA diameter/diameter of distal cervical ICA) x 100. Mild - <50% stenosis. Moderate - 50-69% stenosis. Severe - 70-94% stenosis. Near occlusion - 95-99% stenosis. Occluded - 100% stenosis. Head MRI 03/27/19 00:00 IMPRESSION: No acute intracranial findings. Carotid Doppler Study 03/30/19 00:00 IMPRESSION: 50 to 69% diameter narrowing by velocity criteria right proximal ICA No flow significant stenosis left carotid bifurcation Antegrade pulsatile vertebral artery flow bilaterally, left vertebral artery is dominant Head CT 04/12/19 11:13 IMPRESSION: Chronic ischemic changes. EVIDENCE OF ACUTE STROKE: NO. Assessment and Plan - Diagnosis (1) Encephalopathy Is this a current diagnosis for this admission?: Yes Plan: Some improvements noted this week; now orientated to place and self, ambulatory, and intermittently conversational. Acute metabolic encephalopathy secondary to acute renal failure complicated by vascular dementia. Patient's sister reported baseline confusion to previous provider. Exacerbated by hospitalization Mental health consultation reviewed; medication recommendations implemented. Antoniote has been increased to 500 mg p.o. every 12. Continue Risperdal 0.25 mg twice daily and clonidine 0.1 mg transdermal patch per mental health recommendations. Agnieszka aldridge acute agitation. We will avoid benzodiazepine (2) Vascular dementia Is this a current diagnosis for this admission?: Yes Plan: Supportive care; remaining management as above. (3) Hypertension Is this a current diagnosis for this admission?: Yes Plan: Hypertensive today. Will resume lower dose amlodipine today Continue clonidine patch for behavioral disturbance; monitor for effect on blood pressure. Currently on a regular diet. (4) History of CVA (cerebrovascular accident) Is this a current diagnosis for this admission?: Yes Plan: Continue aspirin and statin therapy. Managed blood pressures with home medication regiment. (5) Acute renal failure Qualifiers: Acute renal failure type: unspecified Qualified Code(s): N17.9 - Acute kidney failure, unspecified Is this a current diagnosis for this admission?: Yes Plan: Resolved. Patient was admitted with a creatinine of 3.61, now 1.13. Patient does have adequate p.o. intake. Encourage p.o. fluids. We will avoid nephrotoxic medications as able. We will monitor with intermittent chemistries. (6) Rhinitis Qualifiers: Rhinitis type: acute Qualified Code(s): J00 - Acute nasopharyngitis [common cold] Is this a current diagnosis for this admission?: Yes Plan: Resolved. Continue flonase. Chloraseptic spray as needed. Encourage p.o. fluids. - Time Time Spent with patient: Less than 15 minutes Medications reviewed and adjusted accordingly: Yes Anticipated discharge: SNF - LTC/Memory Care Within: when bed available
[2019-04-29] MEDS: ATORVASTATIN CALCIUM 40 MG TABLET PO SCH (21:36)
[2019-04-30] MEDS: DOCUSATE SODIUM 100 MG CAPSULE PO SCH ×2 (09:11→17:15)
[2019-04-30] MEDS: DIVALPROEX SODIUM 250 MG TAB.SR.24H PO SCH ×2 (09:12→22:34)
[2019-04-30] MEDS: RISPERIDONE 0.25 MG TABLET PO SCH ×2 (09:12→17:15)
[2019-04-30] MEDS: FLUTICASONE NASAL SPRAY 50 MCG/SPRY 120 SPRAY/16 GM NASL SCH (09:12)
[2019-04-30] MEDS: FENOFIBRATE NANOCRYSTALLIZED 145 MG TABLET PO SCH (09:12)
--- NOTE | 2019-04-30 15:31 | PDOC PROGRESS REPORT ---
Subjective Progress Note for:: 04/30/19 Subjective:: Patient is a 58-year-old male with a past medical history significant for prior CVA, vascular dementia, Hypertension, hyperlipidemia, who was admitted 03/27/2019 for WAQAS. The patient was seen on morning rounds. He was found sitting up to the edge of the bed, comfortably, on room air. The patient is oriented to self and place. He is conversational and socially appropriate. He denies all questions and concerns other to ask "when my getting out of here?" He denies headache, chest pain, shortness of breath, cough, and abdominal discomfort. He does report a good appetite. He appears to be comfortable and not in any acute distress. ROS is otherwise negative. He has no other questions or concerns at this time. No concerns per nursing. Reason For Visit: ALTERED MENTAL STATUS,ATAXIA, CVA HYPERTENSION Physical Exam Vital Signs: Temp Pulse Resp BP Pulse Ox 98.0 F 63 17 104/65 98 04/30/19 11:30 04/30/19 11:30 04/30/19 11:30 04/30/19 11:30 04/30/19 11:30 Intake & Output 04/29/19 04/30/19 05/01/19 06:59 06:59 06:59 Intake Total 290 840 Balance 290 840 Weight 65.6 kg General appearance: PRESENT: no acute distress, cooperative, well-developed, well-nourished Head exam: PRESENT: atraumatic, normocephalic Eye exam: PRESENT: conjunctiva pink, EOMI, PERRLA. ABSENT: scleral icterus Ear exam: PRESENT: normal external ear exam Mouth exam: PRESENT: moist, tongue midline Teeth exam: PRESENT: poor dentation Neck exam: ABSENT: carotid bruit, JVD, lymphadenopathy, thyromegaly Respiratory exam: PRESENT: clear to auscultation jackie, symmetrical, unlabored. ABSENT: rales, rhonchi, wheezes Cardiovascular exam: PRESENT: RRR, +S1, +S2. ABSENT: diastolic murmur, rubs, systolic murmur Pulses: PRESENT: normal dorsalis pedis pul Vascular exam: PRESENT: normal capillary refill GI/Abdominal exam: PRESENT: normal bowel sounds, soft. ABSENT: distended, guarding, mass, organolmegaly, rebound, tenderness Rectal exam: PRESENT: deferred Extremities exam: PRESENT: full ROM. ABSENT: calf tenderness, clubbing, pedal edema Musculoskeletal exam: PRESENT: ambulatory Neurological exam: PRESENT: alert, awake, oriented to person, oriented to place, CN II-XII grossly intact, other - Improved mentation, now oriented to self, place, intermittently time and weekly situation.. ABSENT: oriented to time, oriented to situation, motor sensory deficit Psychiatric exam: PRESENT: appropriate affect, normal mood. ABSENT: homicidal ideation, suicidal ideation Skin exam: PRESENT: dry, intact, warm. ABSENT: cyanosis, rash Results Laboratory Results: 04/27/19 05:39 04/27/19 05:39 03/27/19 03/27/19 16:32 16:32 Creatine Kinase 54 L CK-MB (CK-2) < 0.22 Impressions: Brain MRI with MRA 03/27/19 00:00 IMPRESSION: Diminutive appearance of right vertebral artery, incompletely assessed. Otherwise no significant vascular abnormalities CAROTID STENOSIS REFERENCE USING NASCET CRITERIA: % ICA stenosis = (1 - narrowest ICA diameter/diameter of distal cervical ICA) x 100. Mild - <50% stenosis. Moderate - 50-69% stenosis. Severe - 70-94% stenosis. Near occlusion - 95-99% stenosis. Occluded - 100% stenosis. Head MRI 03/27/19 00:00 IMPRESSION: No acute intracranial findings. Carotid Doppler Study 03/30/19 00:00 IMPRESSION: 50 to 69% diameter narrowing by velocity criteria right proximal ICA No flow significant stenosis left carotid bifurcation Antegrade pulsatile vertebral artery flow bilaterally, left vertebral artery is dominant Head CT 04/12/19 11:13 IMPRESSION: Chronic ischemic changes. EVIDENCE OF ACUTE STROKE: NO. Assessment and Plan - Diagnosis (1) Encephalopathy Is this a current diagnosis for this admission?: Yes Plan: Some improvements noted this week; now orientated to place and self, ambulatory, and intermittently conversational. Acute metabolic encephalopathy secondary to acute renal failure complicated by vascular dementia. Patient's sister reported baseline confusion to previous provider. Exacerbated by hospitalization Mental health consultation reviewed; medication recommendations have been implemented. Depakote has been increased to 500 mg p.o. every 12. Continue Risperdal 0.25 mg twice daily and clonidine 0.1 mg transdermal patch per mental health recommendations. Agnieszka aldridge acute agitation. We will avoid benzodiazepines (2) Vascular dementia Is this a current diagnosis for this admission?: Yes Plan: Supportive care; remaining management as above. (3) Hypertension Is this a current diagnosis for this admission?: Yes Plan: Improved. Continue low dose amlodipine today Continue clonidine patch for behavioral disturbance; monitor for effect on blood pressure. Currently on a regular diet. (4) History of CVA (cerebrovascular accident) Is this a current diagnosis for this admission?: Yes Plan: Continue aspirin and statin therapy. Managed blood pressures with home medication regiment. (5) Acute renal failure Qualifiers: Acute renal failure type: unspecified Qualified Code(s): N17.9 - Acute kidney failure, unspecified Is this a current diagnosis for this admission?: Yes Plan: Resolved. Patient was admitted with a creatinine of 3.61, now 1.13. Patient does have adequate p.o. intake. Encourage p.o. fluids. We will avoid nephrotoxic medications as able. We will monitor with intermittent chemistries. (6) Rhinitis Qualifiers: Rhinitis type: acute Qualified Code(s): J00 - Acute nasopharyngitis [common cold] Is this a current diagnosis for this admission?: Yes Plan: Resolved. Continue flonase. Chloraseptic spray as needed. Encourage p.o. fluids. - Time Time Spent with patient: 15-24 minutes Medications reviewed and adjusted accordingly: Yes Anticipated discharge: SNF - LTC/Memory Care. Within: when bed available
[2019-04-30] MEDS: ATORVASTATIN CALCIUM 40 MG TABLET PO SCH (22:34)
[2019-05-01] MEDS: RISPERIDONE 0.25 MG TABLET PO SCH ×2 (08:35→16:45)
[2019-05-01] MEDS: FENOFIBRATE NANOCRYSTALLIZED 145 MG TABLET PO SCH (10:35)
[2019-05-01] MEDS: DIVALPROEX SODIUM 250 MG TAB.SR.24H PO SCH ×2 (10:35→21:52)
[2019-05-01] MEDS: FLUTICASONE NASAL SPRAY 50 MCG/SPRY 120 SPRAY/16 GM NASL SCH (10:35)
[2019-05-01] MEDS: DOCUSATE SODIUM 100 MG CAPSULE PO SCH ×2 (10:35→17:37)
--- NOTE | 2019-05-01 17:05 | PDOC PROGRESS REPORT ---
Subjective Progress Note for:: 05/01/19 Subjective:: Patient is a 58-year-old male with a past medical history significant for prior CVA, vascular dementia, Hypertension, hyperlipidemia, who was admitted 03/27/2019 for WAQAS. The patient was seen on afternoon rounds. He was found sitting up in a chair, comfortably, on room air. The patient is oriented to self, place, and partially to situation; he asks if I know when he gets to move into his new apartment. He is conversational and socially appropriate. When I tell him we are hopping to find a place for him soon, he tells me he "will have to cancel my fishing trip so that he can be home when the movers are there." He denies headache, chest pain, shortness of breath, cough, and abdominal discomfort. He does report a good appetite. He appears to be comfortable and not in any acute distress. ROS is otherwise negative. He has no other questions or concerns at this time. No concerns per nursing. Reason For Visit: ALTERED MENTAL STATUS,ATAXIA, CVA HYPERTENSION Physical Exam Vital Signs: Temp Pulse Resp BP Pulse Ox 98.4 F 57 L 16 112/67 99 05/01/19 11:54 05/01/19 11:54 05/01/19 11:54 05/01/19 11:54 05/01/19 11:54 Intake & Output 04/30/19 05/01/19 05/02/19 06:59 06:59 06:59 Intake Total 840 960 Balance 840 960 Weight 65.4 kg General appearance: PRESENT: no acute distress, cooperative, well-developed, well-nourished Head exam: PRESENT: atraumatic, normocephalic Eye exam: PRESENT: conjunctiva pink, EOMI, PERRLA. ABSENT: scleral icterus Ear exam: PRESENT: normal external ear exam Mouth exam: PRESENT: moist, tongue midline Teeth exam: PRESENT: poor dentation Neck exam: ABSENT: carotid bruit, JVD, lymphadenopathy, thyromegaly Respiratory exam: PRESENT: clear to auscultation jackie, symmetrical, unlabored. ABSENT: rales, rhonchi, wheezes Cardiovascular exam: PRESENT: RRR. ABSENT: diastolic murmur, rubs, systolic murmur Pulses: PRESENT: normal dorsalis pedis pul Vascular exam: PRESENT: normal capillary refill GI/Abdominal exam: PRESENT: normal bowel sounds, soft. ABSENT: distended, guarding, mass, organolmegaly, rebound, tenderness Rectal exam: PRESENT: deferred Extremities exam: PRESENT: full ROM. ABSENT: calf tenderness, clubbing, pedal edema Musculoskeletal exam: PRESENT: ambulatory Neurological exam: PRESENT: alert, awake, oriented to person, oriented to place, CN II-XII grossly intact. ABSENT: oriented to time, oriented to situation, motor sensory deficit Psychiatric exam: PRESENT: appropriate affect, normal mood. ABSENT: homicidal ideation, suicidal ideation Skin exam: PRESENT: dry, intact, warm. ABSENT: cyanosis, rash Results Laboratory Results: 04/27/19 05:39 04/27/19 05:39 03/27/19 03/27/19 16:32 16:32 Creatine Kinase 54 L CK-MB (CK-2) < 0.22 Impressions: Brain MRI with MRA 03/27/19 00:00 IMPRESSION: Diminutive appearance of right vertebral artery, incompletely assessed. Otherwise no significant vascular abnormalities CAROTID STENOSIS REFERENCE USING NASCET CRITERIA: % ICA stenosis = (1 - narrowest ICA diameter/diameter of distal cervical ICA) x 100. Mild - <50% stenosis. Moderate - 50-69% stenosis. Severe - 70-94% stenosis. Near occlusion - 95-99% stenosis. Occluded - 100% stenosis. Head MRI 03/27/19 00:00 IMPRESSION: No acute intracranial findings. Carotid Doppler Study 03/30/19 00:00 IMPRESSION: 50 to 69% diameter narrowing by velocity criteria right proximal ICA No flow significant stenosis left carotid bifurcation Antegrade pulsatile vertebral artery flow bilaterally, left vertebral artery is dominant Head CT 04/12/19 11:13 IMPRESSION: Chronic ischemic changes. EVIDENCE OF ACUTE STROKE: NO. Assessment and Plan - Diagnosis (1) Encephalopathy Is this a current diagnosis for this admission?: Yes Plan: Resolved. Some improvement noted this week; now orientated to place and self, ambulatory, and conversational though with continued confusion. Acute metabolic encephalopathy secondary to acute renal failure complicated by vascular dementia. Patient's sister reported baseline confusion to previous provider. Exacerbated by hospitalization Mental health consultation reviewed; medication recommendations have been implem ented. Depakote has been increased to 500 mg p.o. every 12. Continue Risperdal 0.25 mg twice daily and clonidine 0.1 mg transdermal patch per mental health recommendations. Agnieszka aldridge acute agitation; none required in >72 hours. We will avoid benzodiazepines (2) Vascular dementia Is this a current diagnosis for this admission?: Yes Plan: Supportive care; remaining management as above. (3) Hypertension Is this a current diagnosis for this admission?: Yes Plan: Acceptable blood pressures. Continue low dose amlodipine today Continue clonidine patch for behavioral disturbance; monitor for effect on blood pressure. Currently on a regular diet. (4) History of CVA (cerebrovascular accident) Is this a current diagnosis for this admission?: Yes Plan: Continue aspirin and statin therapy. Managed blood pressures with home medication regiment. (5) Acute renal failure Qualifiers: Acute renal failure type: unspecified Qualified Code(s): N17.9 - Acute kidney failure, unspecified Is this a current diagnosis for this admission?: Yes Plan: Resolved. Patient was admitted with a creatinine of 3.61, now 1.13. Patient does have adequate p.o. intake. Encourage p.o. fluids. We will avoid nephrotoxic medications as able. We will monitor with intermittent chemistries. (6) Rhinitis Qualifiers: Rhinitis type: acute Qualified Code(s): J00 - Acute nasopharyngitis [common cold] Is this a current diagnosis for this admission?: Yes Plan: Resolved. Continue flonase. Chloraseptic spray as needed. Encourage p.o. fluids. - Time Time Spent with patient: Less than 15 minutes Medications reviewed and adjusted accordingly: Yes Anticipated discharge: Other - [facility] Within: when bed available
[2019-05-01] MEDS: ATORVASTATIN CALCIUM 40 MG TABLET PO SCH (21:52)
[2019-05-02] MEDS: RISPERIDONE 0.25 MG TABLET PO SCH ×2 (09:30→17:04)
[2019-05-02] MEDS: DIVALPROEX SODIUM 250 MG TAB.SR.24H PO SCH ×2 (09:31→21:58)
[2019-05-02] MEDS: FLUTICASONE NASAL SPRAY 50 MCG/SPRY 120 SPRAY/16 GM NASL SCH (09:31)
[2019-05-02] MEDS: FENOFIBRATE NANOCRYSTALLIZED 145 MG TABLET PO SCH (09:31)
[2019-05-02] MEDS: DOCUSATE SODIUM 100 MG CAPSULE PO SCH ×2 (09:31→17:03)
--- NOTE | 2019-05-02 17:01 | PDOC PROGRESS REPORT ---
Subjective Progress Note for:: 05/02/19 Subjective:: Patient is a 58-year-old male with a past medical history significant for prior CVA, vascular dementia, Hypertension, hyperlipidemia, who was admitted 03/27/2019 for WAQAS. The patient was seen on afternoon rounds. He was ambulating in his room, comfortably, on room air. The patient is oriented to self and place. He is conversational and socially appropriate. He again asks if I know when he will be leaving. He denies headache, chest pain, shortness of breath, cough, and abdominal discomfort. He appears to be comfortable and not in any acute distress. ROS is otherwise negative. He has no other questions or concerns at this time. No concerns per nursing. Reason For Visit: ALTERED MENTAL STATUS,ATAXIA, CVA HYPERTENSION Physical Exam Vital Signs: Temp Pulse Resp BP Pulse Ox 97.7 F 52 L 17 112/58 L 99 05/02/19 07:39 05/02/19 07:39 05/02/19 07:39 05/02/19 07:39 05/02/19 07:39 Intake & Output 05/01/19 05/02/19 05/03/19 06:59 06:59 06:59 Intake Total 960 2040 360 Output Total 300 Balance 960 1740 360 Weight 65.4 kg General appearance: PRESENT: no acute distress, cooperative, thin, well-dev eloped, well-nourished Head exam: PRESENT: atraumatic, normocephalic Eye exam: PRESENT: conjunctiva pink, EOMI, PERRLA. ABSENT: scleral icterus Ear exam: PRESENT: normal external ear exam Mouth exam: PRESENT: moist, tongue midline Teeth exam: PRESENT: poor dentation Neck exam: ABSENT: carotid bruit, JVD, lymphadenopathy, thyromegaly Respiratory exam: PRESENT: clear to auscultation jackie, symmetrical, unlabored. ABSENT: rales, rhonchi, wheezes Cardiovascular exam: PRESENT: RRR, +S1, +S2. ABSENT: diastolic murmur, rubs, systolic murmur Pulses: PRESENT: normal dorsalis pedis pul Vascular exam: PRESENT: normal capillary refill GI/Abdominal exam: PRESENT: normal bowel sounds, soft. ABSENT: distended, guarding, mass, organolmegaly, rebound, tenderness Rectal exam: PRESENT: deferred Extremities exam: PRESENT: full ROM. ABSENT: calf tenderness, clubbing, pedal edema Neurological exam: PRESENT: alert, awake, oriented to person, oriented to place, CN II-XII grossly intact. ABSENT: motor sensory deficit Psychiatric exam: PRESENT: appropriate affect, normal mood. ABSENT: homicidal ideation, suicidal ideation Skin exam: PRESENT: dry, intact, warm. ABSENT: cyanosis, rash Results Laboratory Results: 04/27/19 05:39 04/27/19 05:39 03/27/19 03/27/19 16:32 16:32 Creatine Kinase 54 L CK-MB (CK-2) < 0.22 Impressions: Brain MRI with MRA 03/27/19 00:00 IMPRESSION: Diminutive appearance of right vertebral artery, incompletely assessed. Otherwise no significant vascular abnormalities CAROTID STENOSIS REFERENCE USING NASCET CRITERIA: % ICA stenosis = (1 - narrowest ICA diameter/diameter of distal cervical ICA) x 100. Mild - <50% stenosis. Moderate - 50-69% stenosis. Severe - 70-94% stenosis. Near occlusion - 95-99% stenosis. Occluded - 100% stenosis. Head MRI 03/27/19 00:00 IMPRESSION: No acute intracranial findings. Carotid Doppler Study 03/30/19 00:00 IMPRESSION: 50 to 69% diameter narrowing by velocity criteria right proximal ICA No flow significant stenosis left carotid bifurcation Antegrade pulsatile vertebral artery flow bilaterally, left vertebral artery is dominant Head CT 04/12/19 11:13 IMPRESSION: Chronic ischemic changes. EVIDENCE OF ACUTE STROKE: NO. Assessment and Plan - Diagnosis (1) Encephalopathy Is this a current diagnosis for this admission?: Yes Plan: Resolved; now at new baseline. Some improvement noted this week; now orientated to place and self, ambulatory, and conversational though with continued confusion. Acute metabolic encephalopathy secondary to acute renal failure complicated by vascular dementia. Patient's sister reported baseline confusion to previous provider. Exacerbated by hospitalization Mental health consultation reviewed; medication recommendations have been implemented. Depakote has been increased to 500 mg p.o. every 12. Continue Risperdal 0.25 mg twice daily and clonidine 0.1 mg transdermal patch per mental health recommendations. Agnieszka aldridge acute agitation; none required in >72 hours. We will avoid benzodiazepines (2) Vascular dementia Is this a current diagnosis for this admission?: Yes Plan: Supportive care; remaining management as above. (3) Hypertension Is this a current diagnosis for this admission?: Yes Plan: Acceptable blood pressures. Continue low dose amlodipine Continue clonidine patch for behavioral disturbance; monitor for effect on blood pressure. Currently on a regular diet. (4) History of CVA (cerebrovascular accident) Is this a current diagnosis for this admission?: Yes Plan: Continue aspirin and statin therapy. Managed blood pressures with home medication regiment. (5) Acute renal failure Qualifiers: Acute renal failure type: unspecified Qualified Code(s): N17.9 - Acute kidney failure, unspecified Is this a current diagnosis for this admission?: Yes Plan: Resolved. Patient was admitted with a creatinine of 3.61, now 1.13. Patient does have adequate p.o. intake. Encourage p.o. fluids. We will avoid nephrotoxic medications as able. We will monitor with intermittent chemistries. (6) Rhinitis Qualifiers: Rhinitis type: acute Qualified Code(s): J00 - Acute nasopharyngitis [common cold] Is this a current diagnosis for this admission?: Yes Plan: Resolved. Continue flonase. Chloraseptic spray as needed. Encourage p.o. fluids. - Time Time Spent with patient: Less than 15 minutes Medications reviewed and adjusted accordingly: Yes Anticipated discharge: Other - [facility] Within: when bed available
[2019-05-02] MEDS: ATORVASTATIN CALCIUM 40 MG TABLET PO SCH (21:58)
[2019-05-03] MEDS: DIVALPROEX SODIUM 250 MG TAB.SR.24H PO SCH (09:06)
[2019-05-03] MEDS: FENOFIBRATE NANOCRYSTALLIZED 145 MG TABLET PO SCH (09:06)
[2019-05-03] MEDS: DOCUSATE SODIUM 100 MG CAPSULE PO SCH ×2 (09:06→17:23)
[2019-05-03] MEDS: RISPERIDONE 0.25 MG TABLET PO SCH ×2 (09:06→17:23)
[2019-05-03] MEDS: FLUTICASONE NASAL SPRAY 50 MCG/SPRY 120 SPRAY/16 GM NASL SCH (09:07)
--- NOTE | 2019-05-03 10:47 | PDOC PROGRESS REPORT ---
Subjective Progress Note for:: 05/03/19 Subjective:: Patient is a 58-year-old male with a past medical history significant for prior CVA, vascular dementia, Hypertension, hyperlipidemia, who was admitted 03/27/2019 for WAQAS. The patient was seen on morning rounds. H he was found resting in bed, comfortably, on room air having just completed his breakfast. He tells me that he is feeling well today. He denies questions or concerns. He further denies headache, chest pain, shortness of breath, cough, and abdominal discomfort, and constipation. He appears to be comfortable and not in any acute distress. ROS is otherwise negative; somewhat limited secondary to baseline mental status. No concerns per nursing. Reason For Visit: ALTERED MENTAL STATUS,ATAXIA, CVA HYPERTENSION Physical Exam Vital Signs: Temp Pulse Resp BP Pulse Ox 98.1 F 54 L 20 112/66 97 05/03/19 03:44 05/03/19 03:44 05/03/19 03:44 05/03/19 03:44 05/03/19 03:44 Intake & Output 05/02/19 05/03/19 05/04/19 06:59 06:59 06:59 Intake Total 2040 840 Output Total 300 Balance 1740 840 Weight 70 kg General appearance: PRESENT: no acute distress, cooperative, well-developed, well-nourished Head exam: PRESENT: atraumatic, normocephalic Eye exam: PRESENT: conjunctiva pink, EOMI, PERRLA. ABSENT: scleral icterus Ear exam: PRESENT: normal external ear exam Mouth exam: PRESENT: moist, tongue midline Neck exam: ABSENT: carotid bruit, JVD, lymphadenopathy, thyromegaly Respiratory exam: PRESENT: clear to auscultation jackie, symmetrical, unlabored. ABSENT: rales, rhonchi, wheezes Cardiovascular exam: PRESENT: RRR. ABSENT: diastolic murmur, rubs, systolic murmur Pulses: PRESENT: normal dorsalis pedis pul Vascular exam: PRESENT: normal capillary refill GI/Abdominal exam: PRESENT: normal bowel sounds, soft. ABSENT: distended, guarding, mass, organolmegaly, rebound, tenderness Rectal exam: PRESENT: deferred Extremities exam: PRESENT: full ROM. ABSENT: calf tenderness, clubbing, pedal edema Musculoskeletal exam: PRESENT: ambulatory Neurological exam: PRESENT: alert, awake, oriented to person, oriented to place, CN II-XII grossly intact, other - At baseline mental status. ABSENT: oriented to time, oriented to situation, motor sensory deficit Psychiatric exam: PRESENT: appropriate affect, normal mood. ABSENT: homicidal ideation, suicidal ideation Skin exam: PRESENT: dry, intact, warm. ABSENT: cyanosis, rash Results Laboratory Results: 04/27/19 05:39 04/27/19 05:39 03/27/19 03/27/19 16:32 16:32 Creatine Kinase 54 L CK-MB (CK-2) < 0.22 Impressions: Brain MRI with MRA 03/27/19 00:00 IMPRESSION: Diminutive appearance of right vertebral artery, incompletely assessed. Otherwise no significant vascular abnormalities CAROTID STENOSIS REFERENCE USING NASCET CRITERIA: % ICA stenosis = (1 - narrowest ICA diameter/diameter of distal cervical ICA) x 100. Mild - <50% stenosis. Moderate - 50-69% stenosis. Severe - 70-94% stenosis. Near occlusion - 95-99% stenosis. Occluded - 100% stenosis. Head MRI 03/27/19 00:00 IMPRESSION: No acute intracranial findings. Carotid Doppler Study 03/30/19 00:00 IMPRESSION: 50 to 69% diameter narrowing by velocity criteria right proximal ICA No flow significant stenosis left carotid bifurcation Antegrade pulsatile vertebral artery flow bilaterally, left vertebral artery is dominant Head CT 04/12/19 11:13 IMPRESSION: Chronic ischemic changes. EVIDENCE OF ACUTE STROKE: NO. Assessment and Plan - Diagnosis (1) Encephalopathy Is this a current diagnosis for this admission?: Yes Plan: Resolved; now at new baseline. Some improvement noted this week; now orientated to place and self, ambulatory, and conversational though with continued confusion. Acute metabolic encephalopathy secondary to acute renal failure complicated by vascular dementia. Patient's sister reported baseline confusion to previous provider. Exacerbated by hospitalization Mental health consultation reviewed; medication recommendations have been implemented. Depakote has been increased to 500 mg p.o. every 12. Continue Risperdal 0.25 mg twice daily and clonidine 0.1 mg transdermal patch per mental health recommendations. Agnieszka aldridge acute agitation; none required in >5 days We will avoid benzodiazepines (2) Vascular dementia Is this a current diagnosis for this admission?: Yes Plan: Supportive care; remaining management as above. (3) Hypertension Is this a current diagnosis for this admission?: Yes Plan: Normotensive blood pressures. Continue low dose amlodipine Continue clonidine patch for behavioral disturbance; monitor for effect on blood pressure. Currently on a regular diet. (4) History of CVA (cerebrovascular accident) Is this a current diagnosis for this admission?: Yes Plan: Continue aspirin and statin therapy. Managed blood pressures with home medication regiment. (5) Acute renal failure Qualifiers: Acute renal failure type: unspecified Qualified Code(s): N17.9 - Acute kid john failure, unspecified Is this a current diagnosis for this admission?: Yes Plan: Resolved. Patient was admitted with a creatinine of 3.61, now 1.13. Patient does have adequate p.o. intake. Encourage p.o. fluids. We will avoid nephrotoxic medications as able. We will monitor with intermittent chemistries. (6) Rhinitis Qualifiers: Rhinitis type: acute Qualified Code(s): J00 - Acute nasopharyngitis [common cold] Is this a current diagnosis for this admission?: Yes Plan: Resolved. Continue flonase. Chloraseptic spray as needed. Encourage p.o. fluids. - Time Time Spent with patient: Less than 15 minutes Medications reviewed and adjusted accordingly: Yes Anticipated discharge: Other - [facility] Within: when bed available
[2019-05-03] MEDS: ATORVASTATIN CALCIUM 40 MG TABLET PO SCH (21:04)
[2019-05-03] MEDS ORDERED: DIVALPROEX SODIUM 250 MG TAB.SR.24H PO SCH (22:00)
[2019-05-04] MEDS: RISPERIDONE 0.25 MG TABLET PO SCH ×2 (08:35→15:38)
[2019-05-04] MEDS: DIVALPROEX SODIUM 500 MG TAB.SR.24H PO SCH ×2 (10:12→21:21)
[2019-05-04] MEDS: FENOFIBRATE NANOCRYSTALLIZED 145 MG TABLET PO SCH (10:12)
[2019-05-04] MEDS: DOCUSATE SODIUM 100 MG CAPSULE PO SCH ×2 (10:13→18:26)
[2019-05-04] MEDS: FLUTICASONE NASAL SPRAY 50 MCG/SPRY 120 SPRAY/16 GM NASL SCH (10:13)
[2019-05-04] MEDS: ASPIRIN 81 MG TABLET, CHEWABLE PO SCH (13:54)
--- NOTE | 2019-05-04 14:11 | PDOC PROGRESS REPORT ---
Subjective Progress Note for:: 05/04/19 Subjective:: Patient is a 58-year-old male with a past medical history significant for prior CVA, vascular dementia, Hypertension, hyperlipidemia, who was admitted 03/27/2019 for WAQAS. The patient was seen on morning rounds. H he was found resting in a recliner, comfortably, on room air. He tells me that he is feeling well today. He denies questions or concerns. He further denies headache, chest pain, shortness of breath, cough, and abdominal discomfort, and constipation. He appears to be comfortable and not in any acute distress. ROS is otherwise negative; somewhat limited secondary to baseline mental status. No concerns per nursing. Reason For Visit: ALTERED MENTAL STATUS,ATAXIA, CVA HYPERTENSION Physical Exam Vital Signs: Temp Pulse Resp BP Pulse Ox 98.3 F 56 L 14 96/53 L 100 05/04/19 07:24 05/04/19 08:41 05/04/19 07:24 05/04/19 08:41 05/04/19 07:24 Intake & Output 05/03/19 05/04/19 05/05/19 06:59 06:59 06:59 Intake Total 840 720 Balance 840 720 Weight 70 kg 68.9 kg General appearance: PRESENT: no acute distress, cooperative, well-developed, well-nourished Head exam: PRESENT: atraumatic, normocephalic Eye exam: PRESENT: conjunctiva pink, EOMI, PERRLA. ABSENT: scleral icterus Ear exam: PRESENT: normal external ear exam Mouth exam: PRESENT: moist, tongue midline Neck exam: ABSENT: carotid bruit, JVD, lymphadenopathy, thyromegaly Respiratory exam: PRESENT: clear to auscultation jackie, symmetrical, unlabored. ABSENT: rales, rhonchi, wheezes Cardiovascular exam: PRESENT: RRR. ABSENT: diastolic murmur, rubs, systolic murmur Pulses: PRESENT: normal dorsalis pedis pul Vascular exam: PRESENT: normal capillary refill GI/Abdominal exam: PRESENT: normal bowel sounds, soft. ABSENT: distended, guarding, mass, organolmegaly, rebound, tenderness Rectal exam: PRESENT: deferred Extremities exam: PRESENT: full ROM. ABSENT: calf tenderness, clubbing, pedal edema Musculoskeletal exam: PRESENT: ambulatory Neurological exam: PRESENT: alert, awake, oriented to person, oriented to place, CN II-XII grossly intact, other - Pleasantly confused; at baseline. ABSENT: oriented to time, oriented to situation, motor sensory deficit Psychiatric exam: PRESENT: appropriate affect, normal mood. ABSENT: homicidal ideation, suicidal ideation Skin exam: PRESENT: dry, intact, warm. ABSENT: cyanosis, rash Results Laboratory Results: 04/27/19 05:39 04/27/19 05:39 03/27/19 03/27/19 16:32 16:32 Creatine Kinase 54 L CK-MB (CK-2) < 0.22 Impressions: Brain MRI with MRA 03/27/19 00:00 IMPRESSION: Diminutive appearance of right vertebral artery, incompletely assessed. Otherwise no significant vascular abnormalities CAROTID STENOSIS REFERENCE USING NASCET CRITERIA: % ICA stenosis = (1 - narrowest ICA diameter/diameter of distal cervical ICA) x 100. Mild - <50% stenosis. Moderate - 50-69% stenosis. Severe - 70-94% stenosis. Near occlusion - 95-99% stenosis. Occluded - 100% stenosis. Head MRI 03/27/19 00:00 IMPRESSION: No acute intracranial findings. Carotid Doppler Study 03/30/19 00:00 IMPRESSION: 50 to 69% diameter narrowing by velocity criteria right proximal ICA No flow significant stenosis left carotid bifurcation Antegrade pulsatile vertebral artery flow bilaterally, left vertebral artery is dominant Head CT 04/12/19 11:13 IMPRESSION: Chronic ischemic changes. EVIDENCE OF ACUTE STROKE: NO. Assessment and Plan - Diagnosis (1) Encephalopathy Is this a current diagnosis for this admission?: Yes Plan: Resolved; now at new baseline. Some improvement noted this week; now orientated to place and self, ambulatory, and conversational though with continued confusion. Acute metabolic encephalopathy secondary to acute renal failure complicated by vascular dementia. Patient's sister reported baseline confusion to previous provider. Exacerbated by hospitalization Mental health consultation reviewed; medication recommendations have been implemented. Depakote has been increased to 500 mg p.o. every 12. Continue Risperdal 0.25 mg twice daily and clonidine 0.1 mg transdermal patch per mental health recommendations. Agnieszka aldridge acute agitation; none required in >5 days We will avoid benzodiazepines (2) Vascular dementia Is this a current diagnosis for this admission?: Yes Plan: Supportive care; remaining management as above. (3) Hypertension Is this a current diagnosis for this admission?: Yes Plan: Normotensive blood pressures. Continue clonidine patch for behavioral disturbance; monitor for effect on blood pressure. Currently on a regular diet. (4) History of CVA (cerebrovascular accident) Is this a current diagnosis for this admission?: Yes Plan: Continue aspirin and statin therapy. Managed blood pressures with home medication regiment. (5) Acute renal failure Qualifiers: Acute renal failure type: unspecified Qualified Code(s): N17.9 - Acute kidney failure, unspecified Is this a current diagnosis for this admission?: Yes Plan: Resolved. Patient was admitted with a creatinine of 3.61, now 1.13. Patient does have adequate p.o. intake. Encourage p.o. fluids. We will avoid nephrotoxic medications as able. We will monitor with intermittent chemistries. (6) Rhinitis Qualifiers: Rhinitis type: acute Qualified Code(s): J00 - Acute nasopharyngitis [common cold] Is this a current diagnosis for this admission?: Yes Plan: Resolved. Continue flonase. Chloraseptic spray as needed. Encourage p.o. fluids. - Time Time Spent with patient: Less than 15 minutes Medications reviewed and adjusted accordingly: Yes Anticipated discharge: Other - [facility] Within: when bed available
[2019-05-04] MEDS: ATORVASTATIN CALCIUM 40 MG TABLET PO SCH (21:21)
[2019-05-05] MEDS ORDERED: INFLUENZA QUAD (6MOS+) 2019-20 VAC 0.5 ML SYR IM ONE (06:19)
[2019-05-05] MEDS: RISPERIDONE 0.25 MG TABLET PO SCH ×2 (08:42→15:31)
--- NOTE | 2019-05-05 09:27 | PDOC PROGRESS REPORT ---
Subjective Progress Note for:: 05/05/19 Subjective:: March 29, 2019-patient is confused will not answer questions at this time. Remains in four-point restraints March 30, 2019-patient remains confused only oriented to self. Only in two- point restraints at this time 04/21/2019-no complaints at this time 04/22/2019-no complaints this a.m. eating breakfast 04/23/2019-no complaints this a.m. 2018-no complaints at this time 04/25/2019-no complaints. Patient remains pleasantly confused 04/26/2019-no complaints at this time 04/27/2019-no complaints this a.m. 05/05/2019-no complaints Reason For Visit: ALTERED MENTAL STATUS,ATAXIA, CVA HYPERTENSION Physical Exam Vital Signs: Temp Pulse Resp BP Pulse Ox 98.1 F 58 L 16 140/47 H 98 05/05/19 00:09 05/05/19 04:18 05/05/19 04:18 05/05/19 04:18 05/05/19 04:18 Intake & Output 05/04/19 05/05/19 05/06/19 06:59 06:59 06:59 Intake Total 720 510 0 Balance 720 510 0 Weight 68.9 kg 64.7 kg General appearance: PRESENT: no acute distress, well-developed, well-nourished Neck exam: ABSENT: carotid bruit, JVD, lymphadenopathy, thyromegaly Cardiovascular exam: PRESENT: RRR. ABSENT: diastolic murmur, rubs, systolic murmur Pulses: PRESENT: normal dorsalis pedis pul GI/Abdominal exam: PRESENT: normal bowel sounds, soft. ABSENT: distended, guarding, mass, organolmegaly, rebound, tenderness Extremities exam: PRESENT: full ROM. ABSENT: calf tenderness, clubbing, pedal edema Neurological exam: PRESENT: alert, awake, other - Pleasantly confused Psychiatric exam: PRESENT: appropriate affect, normal mood, other - Pleasantly confused. ABSENT: homicidal ideation, suicidal ideation Results Laboratory Results: 04/27/19 05:39 04/27/19 05:39 03/27/19 03/27/19 16:32 16:32 Creatine Kinase 54 L CK-MB (CK-2) < 0.22 Impressions: Brain MRI with MRA 03/27/19 00:00 IMPRESSION: Diminutive appearance of right vertebral artery, incompletely assessed. Otherwise no significant vascular abnormalities CAROTID STENOSIS REFERENCE USING NASCET CRITERIA: % ICA stenosis = (1 - narrowest ICA diameter/diameter of distal cervical ICA) x 100. Mild - <50% stenosis. Moderate - 50-69% stenosis. Severe - 70-94% stenosis. Near occlusion - 95-99% stenosis. Occluded - 100% stenosis. Head MRI 03/27/19 00:00 IMPRESSION: No acute intracranial findings. Carotid Doppler Study 03/30/19 00:00 IMPRESSION: 50 to 69% diameter narrowing by velocity criteria right proximal ICA No flow significant stenosis left carotid bifurcation Antegrade pulsatile vertebral artery flow bilaterally, left vertebral artery is dominant Head CT 04/12/19 11:13 IMPRESSION: Chronic ischemic changes. EVIDENCE OF ACUTE STROKE: NO. Assessment and Plan - Diagnosis (1) Encephalopathy Is this a current diagnosis for this admission?: Yes (2) Vascular dementia Is this a current diagnosis for this admission?: Yes (3) Hypertension Is this a current diagnosis for this admission?: Yes (4) Acute renal failure Qualifiers: Acute renal failure type: unspecified Qualified Code(s): N17.9 - Acute kidney failure, unspecified Is this a current diagnosis for this admission?: Yes (5) Rhinitis Qualifiers: Rhinitis type: acute Qualified Code(s): J00 - Acute nasopharyngitis [common cold] Is this a current diagnosis for this admission?: Yes
[2019-05-05] MEDS: DIVALPROEX SODIUM 500 MG TAB.SR.24H PO SCH ×2 (10:17→22:30)
[2019-05-05] MEDS: FENOFIBRATE NANOCRYSTALLIZED 145 MG TABLET PO SCH (10:18)
[2019-05-05] MEDS: ASPIRIN 81 MG TABLET, CHEWABLE PO SCH (10:18)
[2019-05-05] MEDS: DOCUSATE SODIUM 100 MG CAPSULE PO SCH ×2 (10:18→17:15)
[2019-05-05] MEDS: CLONIDINE 0.1 MG/24 HR PATCH.TDWK TD SCH (10:21)
[2019-05-05] MEDS: FLUTICASONE NASAL SPRAY 50 MCG/SPRY 120 SPRAY/16 GM NASL SCH (10:22)
[2019-05-05] MEDS ORDERED: TUBERCULIN,PURIF.PROT.DERIV. 5 TU/0.1 ML TEST 1 ML VIAL ID ONE (14:00)
[2019-05-05] MEDS: ATORVASTATIN CALCIUM 40 MG TABLET PO SCH (22:30)
--- NOTE | 2019-05-06 09:16 | PDOC PROGRESS REPORT ---
Subjective Progress Note for:: 05/06/19 Subjective:: March 29, 2019-patient is confused will not answer questions at this time. Remains in four-point restraints March 30, 2019-patient remains confused only oriented to self. Only in two- point restraints at this time 04/21/2019-no complaints at this time 04/22/2019-no complaints this a.m. eating breakfast 04/23/2019-no complaints this a.m. 2018-no complaints at this time 04/25/2019-no complaints. Patient remains pleasantly confused 04/26/2019-no complaints at this time 04/27/2019-no complaints this a.m. 05/05/2019-no complaints 05/2019-no complaints this a.m. Reason For Visit: ALTERED MENTAL STATUS,ATAXIA, CVA HYPERTENSION Physical Exam Vital Signs: Temp Pulse Resp BP Pulse Ox 98.3 F 60 16 109/64 100 05/05/19 20:01 05/05/19 20:01 05/05/19 20:01 05/05/19 20:01 05/05/19 20:01 Intake & Output 05/05/19 05/06/19 05/07/19 06:59 06:59 06:59 Intake Total 510 1747 Balance 510 1747 Weight 64 kg General appearance: PRESENT: no acute distress, well-developed, well-nourished Head exam: PRESENT: atraumatic, normocephalic Eye exam: PRESENT: conjunctiva pink, EOMI, PERRLA. ABSENT: scleral icterus Ear exam: PRESENT: normal external ear exam Mouth exam: PRESENT: moist, tongue midline Neck exam: ABSENT: carotid bruit, JVD, lymphadenopathy, thyromegaly Respiratory exam: PRESENT: clear to auscultation jackie. ABSENT: rales, rhonchi, wheezes Cardiovascular exam: PRESENT: RRR. ABSENT: diastolic murmur, rubs, systolic murmur Pulses: PRESENT: normal dorsalis pedis pul Vascular exam: PRESENT: normal capillary refill GI/Abdominal exam: PRESENT: normal bowel sounds, soft. ABSENT: distended, guarding, mass, organolmegaly, rebound, tenderness Rectal exam: PRESENT: deferred Extremities exam: PRESENT: full ROM. ABSENT: calf tenderness, clubbing, pedal edema Neurological exam: PRESENT: awake, other - Pleasantly confused. ABSENT: motor sensory deficit Psychiatric exam: PRESENT: appropriate affect, normal mood, other - Pleasantly confused. ABSENT: homicidal ideation, suicidal ideation Skin exam: PRESENT: dry, intact, warm. ABSENT: cyanosis, rash Results Laboratory Results: 04/27/19 05:39 04/27/19 05:39 03/27/19 03/27/19 16:32 16:32 Creatine Kinase 54 L CK-MB (CK-2) < 0.22 Impressions: Brain MRI with MRA 03/27/19 00:00 IMPRESSION: Diminutive appearance of right vertebral artery, incompletely assessed. Otherwise no significant vascular abnormalities CAROTID STENOSIS REFERENCE USING NASCET CRITERIA: % ICA stenosis = (1 - narrowest ICA diameter/diameter of distal cervical ICA) x 100. Mild - <50% stenosis. Moderate - 50-69% stenosis. Severe - 70-94% stenosis. Near occlusion - 95-99% stenosis. Occluded - 100% stenosis. Head MRI 03/27/19 00:00 IMPRESSION: No acute intracranial findings. Carotid Doppler Study 03/30/19 00:00 IMPRESSION: 50 to 69% diameter narrowing by velocity criteria right proximal ICA No flow significant stenosis left carotid bifurcation Antegrade pulsatile vertebral artery flow bilaterally, left vertebral artery is dominant Head CT 04/12/19 11:13 IMPRESSION: Chronic ischemic changes. EVIDENCE OF ACUTE STROKE: NO. Assessment and Plan - Diagnosis (1) Encephalopathy Is this a current diagnosis for this admission?: Yes (2) Vascular dementia Is this a current diagnosis for this admission?: Yes (3) Hypertension Is this a current diagnosis for this admission?: Yes (4) Acute renal failure Qualifiers: Acute renal failure type: unspecified Qualified Code(s): N17.9 - Acute kidney failure, unspecified Is this a current diagnosis for this admission?: Yes (5) Rhinitis Qualifiers: Rhinitis type: acute Qualified Code(s): J00 - Acute nasopharyngitis [common cold] Is this a current diagnosis for this admission?: Yes - Plan Summary Summary: 05/06/2019- Encephalopathy-stable at this time continue to follow Vascular dementia-most likely baseline stable Hypertension stable Acute renal failure stable Rhinitis stable
[2019-05-06] MEDS: FENOFIBRATE NANOCRYSTALLIZED 145 MG TABLET PO SCH (09:27)
[2019-05-06] MEDS: ASPIRIN 81 MG TABLET, CHEWABLE PO SCH (09:28)
[2019-05-06] MEDS: DOCUSATE SODIUM 100 MG CAPSULE PO SCH ×2 (09:28→18:08)
[2019-05-06] MEDS: DIVALPROEX SODIUM 500 MG TAB.SR.24H PO SCH ×2 (09:28→21:05)
[2019-05-06] MEDS: FLUTICASONE NASAL SPRAY 50 MCG/SPRY 120 SPRAY/16 GM NASL SCH (09:29)
[2019-05-06] MEDS: RISPERIDONE 0.25 MG TABLET PO SCH ×2 (09:29→18:08)
[2019-05-07] MEDS: RISPERIDONE 0.25 MG TABLET PO SCH ×2 (08:36→15:36)
--- NOTE | 2019-05-07 08:56 | PDOC PROGRESS REPORT ---
Subjective Progress Note for:: 05/07/19 Subjective:: March 29, 2019-patient is confused will not answer questions at this time. Remains in four-point restraints March 30, 2019-patient remains confused only oriented to self. Only in two- point restraints at this time 04/21/2019-no complaints at this time 04/22/2019-no complaints this a.m. eating breakfast 04/23/2019-no complaints this a.m. 2018-no complaints at this time 04/25/2019-no complaints. Patient remains pleasantly confused 04/26/2019-no complaints at this time 04/27/2019-no complaints this a.m. 05/05/2019-no complaints 05/2019-no complaints this a.m. 05/07/2019-no complaints Reason For Visit: ALTERED MENTAL STATUS,ATAXIA, CVA HYPERTENSION Physical Exam Vital Signs: Temp Pulse Resp BP Pulse Ox 98.2 F 85 16 115/68 99 05/06/19 19:46 05/06/19 19:46 05/06/19 19:46 05/06/19 19:46 05/06/19 19:46 Intake & Output 05/06/19 05/07/19 05/08/19 06:59 06:59 06:59 Intake Total 1747 1144 Balance 1747 1144 Weight 64 kg 67.2 kg Results Laboratory Results: 04/27/19 05:39 04/27/19 05:39 03/27/19 03/27/19 16:32 16:32 Creatine Kinase 54 L CK-MB (CK-2) < 0.22 Impressions: Brain MRI with MRA 03/27/19 00:00 IMPRESSION: Diminutive appearance of right vertebral artery, incompletely assessed. Otherwise no significant vascular abnormalities CAROTID STENOSIS REFERENCE USING NASCET CRITERIA: % ICA stenosis = (1 - narrowest ICA diameter/diameter of distal cervical ICA) x 100. Mild - <50% stenosis. Moderate - 50-69% stenosis. Severe - 70-94% stenosis. Near occlusion - 95-99% stenosis. Occluded - 100% stenosis. Head MRI 03/27/19 00:00 IMPRESSION: No acute intracranial findings. Carotid Doppler Study 03/30/19 00:00 IMPRESSION: 50 to 69% diameter narrowing by velocity criteria right proximal ICA No flow significant stenosis left carotid bifurcation Antegrade pulsatile vertebral artery flow bilaterally, left vertebral artery is dominant Head CT 04/12/19 11:13 IMPRESSION: Chronic ischemic changes. EVIDENCE OF ACUTE STROKE: NO. Assessment and Plan - Diagnosis (1) Encephalopathy Is this a current diagnosis for this admission?: Yes (2) Vascular dementia Is this a current diagnosis for this admission?: Yes (3) Hypertension Is this a current diagnosis for this admission?: Yes (4) Acute renal failure Qualifiers: Acute renal failure type: unspecified Qualified Code(s): N17.9 - Acute kidney failure, unspecified Is this a current diagnosis for this admission?: Yes (5) Rhinitis Qualifiers: Rhinitis type: acute Qualified Code(s): J00 - Acute nasopharyngitis [common cold] Is this a current diagnosis for this admission?: Yes - Plan Summary Summary: 05/06/2019- Encephalopathy-stable at this time continue to follow Vascular dementia-most likely baseline stable Hypertension stable Acute renal failure stable Rhinitis stable 05/07/2019- Encephalopathy-stable Vascular dementia-Baseline, stable Hypertension-stable Acute renal failure-stable Rhinitis-stable
[2019-05-07] MEDS: FENOFIBRATE NANOCRYSTALLIZED 145 MG TABLET PO SCH (09:31)
[2019-05-07] MEDS: DOCUSATE SODIUM 100 MG CAPSULE PO SCH ×2 (09:32→17:09)
[2019-05-07] MEDS: DIVALPROEX SODIUM 500 MG TAB.SR.24H PO SCH ×2 (09:32→23:00)
[2019-05-07] MEDS: ASPIRIN 81 MG TABLET, CHEWABLE PO SCH (09:32)
[2019-05-07] MEDS: FLUTICASONE NASAL SPRAY 50 MCG/SPRY 120 SPRAY/16 GM NASL SCH (09:33)
--- NOTE | 2019-05-08 08:47 | PDOC PROGRESS REPORT ---
Subjective Progress Note for:: 05/08/19 Subjective:: March 29, 2019-patient is confused will not answer questions at this time. Remains in four-point restraints March 30, 2019-patient remains confused only oriented to self. Only in two- point restraints at this time 04/21/2019-no complaints at this time 04/22/2019-no complaints this a.m. eating breakfast 04/23/2019-no complaints this a.m. 2018-no complaints at this time 04/25/2019-no complaints. Patient remains pleasantly confused 04/26/2019-no complaints at this time 04/27/2019-no complaints this a.m. 05/05/2019-no complaints 05/2019-no complaints this a.m. 05/07/2019-no complaints 05/08/2019-no complaints this a.m. Reason For Visit: ALTERED MENTAL STATUS,ATAXIA, CVA HYPERTENSION Physical Exam Vital Signs: Temp Pulse Resp BP Pulse Ox 98.2 F 67 18 103/54 L 97 05/08/19 07:15 05/08/19 07:15 05/08/19 07:15 05/08/19 07:15 05/08/19 07:15 Intake & Output 05/07/19 05/08/19 05/09/19 06:59 06:59 06:59 Intake Total 1144 1422 Balance 1144 1422 Weight 67.2 kg 64.6 kg General appearance: PRESENT: no acute distress, well-developed, well-nourished Neck exam: ABSENT: carotid bruit, JVD, lymphadenopathy, thyromegaly Respiratory exam: PRESENT: clear to auscultation jackie. ABSENT: rales, rhonchi, wheezes Cardiovascular exam: PRESENT: RRR. ABSENT: diastolic murmur, rubs, systolic murmur Pulses: PRESENT: normal dorsalis pedis pul Vascular exam: PRESENT: normal capillary refill GI/Abdominal exam: PRESENT: normal bowel sounds, soft. ABSENT: distended, guarding, mass, organolmegaly, rebound, tenderness Extremities exam: PRESENT: full ROM. ABSENT: calf tenderness, clubbing, pedal edema Neurological exam: PRESENT: alert, awake, other - Pleasantly confused Psychiatric exam: PRESENT: appropriate affect, normal mood, other - Pleasantly confused. ABSENT: homicidal ideation, suicidal ideation Skin exam: PRESENT: dry, intact, warm. ABSENT: cyanosis, rash Results Laboratory Results: 04/27/19 05:39 04/27/19 05:39 03/27/19 03/27/19 16:32 16:32 Creatine Kinase 54 L CK-MB (CK-2) < 0.22 Impressions: Brain MRI with MRA 03/27/19 00:00 IMPRESSION: Diminutive appearance of right vertebral artery, incompletely assessed. Otherwise no significant vascular abnormalities CAROTID STENOSIS REFERENCE USING NASCET CRITERIA: % ICA stenosis = (1 - narrowest ICA diameter/diameter of distal cervical ICA) x 100. Mild - <50% stenosis. Moderate - 50-69% stenosis. Severe - 70-94% stenosis. Near occlusion - 95-99% stenosis. Occluded - 100% stenosis. Head MRI 03/27/19 00:00 IMPRESSION: No acute intracranial findings. Carotid Doppler Study 03/30/19 00:00 IMPRESSION: 50 to 69% diameter narrowing by velocity criteria right proximal ICA No flow significant stenosis left carotid bifurcation Antegrade pulsatile vertebral artery flow bilaterally, left vertebral artery is dominant Head CT 04/12/19 11:13 IMPRESSION: Chronic ischemic changes. EVIDENCE OF ACUTE STROKE: NO. Assessment and Plan - Diagnosis (1) Encephalopathy Is this a current diagnosis for this admission?: Yes (2) Vascular dementia Is this a current diagnosis for this admission?: Yes (3) Hypertension Is this a current diagnosis for this admission?: Yes (4) Acute renal failure Qualifiers: Acute renal failure type: unspecified Qualified Code(s): N17.9 - Acute kidney failure, unspecified Is this a current diagnosis for this admission?: Yes (5) Rhinitis Qualifiers: Rhinitis type: acute Qualified Code(s): J00 - Acute nasopharyngitis [common cold] Is this a current diagnosis for this admission?: Yes - Plan Summary Summary: 05/06/2019- Encephalopathy-stable at this time continue to follow Vascular dementia-most likely baseline stable Hypertension stable Acute renal failure stable Rhinitis stable 05/07/2019- Encephalopathy-stable Vascular dementia-Baseline, stable Hypertension-stable Acute renal failure-stable Rhinitis-stable 05/08/2019- encephalopathy stable continue to follow Vascular dementia stable Hypertension-stable Acute renal failure-stable repeat BMP in a.m. Rhinitis stable
[2019-05-08] MEDS: FENOFIBRATE NANOCRYSTALLIZED 145 MG TABLET PO SCH (09:38)
[2019-05-08] MEDS: ASPIRIN 81 MG TABLET, CHEWABLE PO SCH (09:38)
[2019-05-08] MEDS: DIVALPROEX SODIUM 500 MG TAB.SR.24H PO SCH ×2 (09:38→21:25)
[2019-05-08] MEDS: DOCUSATE SODIUM 100 MG CAPSULE PO SCH ×2 (09:38→17:07)
[2019-05-08] MEDS: FLUTICASONE NASAL SPRAY 50 MCG/SPRY 120 SPRAY/16 GM NASL SCH (09:39)
[2019-05-08] MEDS: RISPERIDONE 0.25 MG TABLET PO SCH ×2 (09:40→15:35)
[2019-05-09 06:48] LABS: HEMATOCRIT 35.5 % (37.9-51.0); HEMOGLOBIN 11.7 g/dL (13.5-17.0); MEAN CORPUSCULAR HEMOGLOBIN 30.2 pg (27.0-33.4); MEAN CORPUSCULAR HGB CONC 33.1 g/dL (32.0-36.0); MEAN CORPUSCULAR VOLUME 91 fl (80-97); PLATELET COUNT 358 10^3/uL (150-450); RED BLOOD COUNT 3.89 10^6/uL (4.35-5.55); RED CELL DISTRIBUTION WIDTH 14.9 % (11.5-14.0); WHITE BLOOD COUNT 8.3 10^3/uL (4.0-10.5)
[2019-05-09 07:12] LABS: ANION GAP 10 (5-19); BLOOD UREA NITROGEN 32 mg/dL (7-20); CALCIUM 9.8 mg/dL (8.4-10.2); CARBON DIOXIDE 30 mmol/L (22-30); CHLORIDE 98 mmol/L (98-107); GLUCOSE 87 mg/dL (75-110); POTASSIUM 5.3 mmol/L (3.6-5.0)
[2019-05-09] MEDS ORDERED: SODIUM POLYSTYRENE SULFONATE 15 GM/60 ML PO ONE (08:57)
--- NOTE | 2019-05-09 08:59 | PDOC PROGRESS REPORT ---
Subjective Progress Note for:: 05/09/19 Subjective:: March 29, 2019-patient is confused will not answer questions at this time. Remains in four-point restraints March 30, 2019-patient remains confused only oriented to self. Only in two- point restraints at this time 04/21/2019-no complaints at this time 04/22/2019-no complaints this a.m. eating breakfast 04/23/2019-no complaints this a.m. 2018-no complaints at this time 04/25/2019-no complaints. Patient remains pleasantly confused 04/26/2019-no complaints at this time 04/27/2019-no complaints this a.m. 05/05/2019-no complaints 05/2019-no complaints this a.m. 05/07/2019-no complaints 05/08/2019-no complaints this a.m. 05/09/2019-no complaints Reason For Visit: ALTERED MENTAL STATUS,ATAXIA, CVA HYPERTENSION Physical Exam Vital Signs: Temp Pulse Resp BP Pulse Ox 98.5 F 55 L 18 119/59 L 100 05/09/19 00:00 05/09/19 00:00 05/09/19 00:00 05/09/19 00:00 05/09/19 00:00 Intake & Output 05/08/19 05/09/19 05/10/19 06:59 06:59 06:59 Intake Total 1422 1155 Balance 1422 1155 Weight 64.6 kg General appearance: PRESENT: no acute distress, well-developed, well-nourished Neck exam: ABSENT: carotid bruit, JVD, lymphadenopathy, thyromegaly Respiratory exam: PRESENT: clear to auscultation jackie. ABSENT: rales, rhonchi, wheezes Cardiovascular exam: PRESENT: RRR. ABSENT: diastolic murmur, rubs, systolic murmur Pulses: PRESENT: normal dorsalis pedis pul Vascular exam: PRESENT: normal capillary refill GI/Abdominal exam: PRESENT: normal bowel sounds, soft. ABSENT: distended, guarding, mass, organolmegaly, rebound, tenderness Extremities exam: PRESENT: full ROM. ABSENT: calf tenderness, clubbing, pedal edema Neurological exam: PRESENT: awake, other - Pleasantly confused Psychiatric exam: PRESENT: appropriate affect, normal mood, other - Pleasantly confused Skin exam: PRESENT: dry, intact, warm. ABSENT: cyanosis, rash Results Laboratory Results: 05/09/19 06:12 05/09/19 06:12 05/09/19 05/09/19 06:12 06:12 WBC 8.3 RBC 3.89 L Hgb 11.7 L Hct 35.5 L MCV 91 MCH 30.2 MCHC 33.1 RDW 14.9 H Plt Count 358 Sodium 138.2 Potassium 5.3 H Chloride 98 Carbon Dioxide 30 Anion Gap 10 BUN 32 H Creatinine 1.12 Est GFR ( Amer) > 60 Glucose 87 Calcium 9.8 03/27/19 03/27/19 16:32 16:32 Creatine Kinase 54 L CK-MB (CK-2) < 0.22 Impressions: Brain MRI with MRA 03/27/19 00:00 IMPRESSION: Diminutive appearance of right vertebral artery, incompletely assessed. Otherwise no significant vascular abnormalities CAROTID STENOSIS REFERENCE USING NASCET CRITERIA: % ICA stenosis = (1 - narrowest ICA diameter/diameter of distal cervical ICA) x 100. Mild - <50% stenosis. Moderate - 50-69% stenosis. Severe - 70-94% stenosis. Near occlusion - 95-99% stenosis. Occluded - 100% stenosis. Head MRI 03/27/19 00:00 IMPRESSION: No acute intracranial findings. Carotid Doppler Study 03/30/19 00:00 IMPRESSION: 50 to 69% diameter narrowing by velocity criteria right proximal ICA No flow significant stenosis left carotid bifurcation Antegrade pulsatile vertebral artery flow bilaterally, left vertebral artery is dominant Head CT 04/12/19 11:13 IMPRESSION: Chronic ischemic changes. EVIDENCE OF ACUTE STROKE: NO. Assessment and Plan - Diagnosis (1) Encephalopathy Is this a current diagnosis for this admission?: Yes (2) Vascular dementia Is this a current diagnosis for this admission?: Yes (3) Hypertension Is this a current diagnosis for this admission?: Yes (4) Acute renal failure Qualifiers: Acute renal failure type: unspecified Qualified Code(s): N17.9 - Acute kidney failure, unspecified Is this a current diagnosis for this admission?: Yes (5) Rhinitis Qualifiers: Rhinitis type: acute Qualified Code(s): J00 - Acute nasopharyngitis [common cold] Is this a current diagnosis for this admission?: Yes - Plan Summary Summary: 05/06/2019- Encephalopathy-stable at this time continue to follow Vascular dementia-most likely baseline stable Hypertension stable Acute renal failure stable Rhinitis stable 05/07/2019- Encephalopathy-stable Vascular dementia-Baseline, stable Hypertension-stable Acute renal failure-stable Rhinitis-stable 05/08/2019- encephalopathy stable continue to follow Vascular dementia stable Hypertension-stable Acute renal failure-stable repeat BMP in a.m. Rhinitis stable 05/09/2019- encephalopathy stable continue to follow Vascular dementia stable Hypertension-stable Acute renal failure-stable repeat BMP in a.m. Rhinitis stable Hyperkalemia-potassium 5.3. Will give 15 g of Kayexalate p.o. times 1 repeat BMP in a.m. - Time Time Spent with patient: 15-24 minutes
[2019-05-09] MEDS: FENOFIBRATE NANOCRYSTALLIZED 145 MG TABLET PO SCH (10:28)
[2019-05-09] MEDS: ASPIRIN 81 MG TABLET, CHEWABLE PO SCH (10:28)
[2019-05-09] MEDS: DIVALPROEX SODIUM 500 MG TAB.SR.24H PO SCH ×2 (10:28→22:04)
[2019-05-09] MEDS: DOCUSATE SODIUM 100 MG CAPSULE PO SCH ×2 (10:28→17:27)
[2019-05-09] MEDS: FLUTICASONE NASAL SPRAY 50 MCG/SPRY 120 SPRAY/16 GM NASL SCH (10:29)
[2019-05-09] MEDS: RISPERIDONE 0.25 MG TABLET PO SCH ×2 (10:31→16:20)
[2019-05-10 06:23] LABS: ANION GAP 9 (5-19); BLOOD UREA NITROGEN 30 mg/dL (7-20); CALCIUM 9.2 mg/dL (8.4-10.2); CARBON DIOXIDE 24 mmol/L (22-30); CHLORIDE 105 mmol/L (98-107); GLUCOSE 85 mg/dL (75-110)
[2019-05-10 06:39] LABS: POTASSIUM 4.3 mmol/L (3.6-5.0)
--- NOTE | 2019-05-10 08:23 | PDOC PROGRESS REPORT ---
Subjective Progress Note for:: 05/10/19 Subjective:: March 29, 2019-patient is confused will not answer questions at this time. Remains in four-point restraints March 30, 2019-patient remains confused only oriented to self. Only in two- point restraints at this time 04/21/2019-no complaints at this time 04/22/2019-no complaints this a.m. eating breakfast 04/23/2019-no complaints this a.m. 2018-no complaints at this time 04/25/2019-no complaints. Patient remains pleasantly confused 04/26/2019-no complaints at this time 04/27/2019-no complaints this a.m. 05/05/2019-no complaints 05/2019-no complaints this a.m. 05/07/2019-no complaints 05/08/2019-no complaints this a.m. 05/09/2019-no complaints 05/10/2019-no complaints at this time. Reason For Visit: ALTERED MENTAL STATUS,ATAXIA, CVA HYPERTENSION Physical Exam Vital Signs: Temp Pulse Resp BP Pulse Ox 98.3 F 75 16 113/69 100 05/09/19 23:45 05/09/19 23:45 05/09/19 23:45 05/09/19 23:45 05/09/19 23:45 Intake & Output 05/09/19 05/10/19 05/11/19 06:59 06:59 06:59 Intake Total 1155 1347 Balance 1155 1347 Weight 65.6 kg General appearance: PRESENT: no acute distress, well-developed, well-nourished Neck exam: ABSENT: carotid bruit, JVD, lymphadenopathy, thyromegaly Respiratory exam: PRESENT: clear to auscultation jackie. ABSENT: rales, rhonchi, wheezes Cardiovascular exam: PRESENT: RRR. ABSENT: diastolic murmur, rubs, systolic murmur Pulses: PRESENT: normal dorsalis pedis pul Vascular exam: PRESENT: normal capillary refill GI/Abdominal exam: PRESENT: normal bowel sounds, soft. ABSENT: distended, guarding, mass, organolmegaly, rebound, tenderness Extremities exam: PRESENT: full ROM. ABSENT: calf tenderness, clubbing, pedal edema Neurological exam: PRESENT: alert, awake, oriented to person, oriented to place, oriented to time, oriented to situation, CN II-XII grossly intact. ABSENT: motor sensory deficit Psychiatric exam: PRESENT: appropriate affect, normal mood. ABSENT: homicidal ideation, suicidal ideation Skin exam: PRESENT: dry, intact, warm. ABSENT: cyanosis, rash Results Laboratory Results: 05/09/19 06:12 05/10/19 05:34 05/10/19 05:34 Sodium 138.2 Potassium 4.3 D Chloride 105 Carbon Dioxide 24 Anion Gap 9 BUN 30 H Creatinine 1.09 Est GFR ( Amer) > 60 Glucose 85 Calcium 9.2 03/27/19 03/27/19 16:32 16:32 Creatine Kinase 54 L CK-MB (CK-2) < 0.22 Impressions: Brain MRI with MRA 03/27/19 00:00 IMPRESSION: Diminutive appearance of right vertebral artery, incompletely assessed. Otherwise no significant vascular abnormalities CAROTID STENOSIS REFERENCE USING NASCET CRITERIA: % ICA stenosis = (1 - narrowest ICA diameter/diameter of distal cervical ICA) x 100. Mild - <50% stenosis. Moderate - 50-69% stenosis. Severe - 70-94% stenosis. Near occlusion - 95-99% stenosis. Occluded - 100% stenosis. Head MRI 03/27/19 00:00 IMPRESSION: No acute intracranial findings. Carotid Doppler Study 03/30/19 00:00 IMPRESSION: 50 to 69% diameter narrowing by velocity criteria right proximal ICA No flow significant stenosis left carotid bifurcation Antegrade pulsatile vertebral artery flow bilaterally, left vertebral artery is dominant Head CT 04/12/19 11:13 IMPRESSION: Chronic ischemic changes. EVIDENCE OF ACUTE STROKE: NO. Assessment and Plan - Diagnosis (1) Encephalopathy Is this a current diagnosis for this admission?: Yes (2) Vascular dementia Is this a current diagnosis for this admission?: Yes (3) Hypertension Is this a current diagnosis for this admission?: Yes (4) Acute renal failure Qualifiers: Acute renal failure type: unspecified Qualified Code(s): N17.9 - Acute kidney failure, unspecified Is this a current diagnosis for this admission?: Yes (5) Rhinitis Qualifiers: Rhinitis type: acute Qualified Code(s): J00 - Acute nasopharyngitis [common cold] Is this a current diagnosis for this admission?: Yes - Plan Summary Summary: 05/06/2019- Encephalopathy-stable at this time continue to follow Vascular dementia-most likely baseline stable Hypertension stable Acute renal failure stable Rhinitis stable 05/07/2019- Encephalopathy-stable Vascular dementia-Baseline, stable Hypertension-stable Acute renal failure-stable Rhinitis-stable 05/08/2019- encephalopathy stable continue to follow Vascular dementia stable Hypertension-stable Acute renal failure-stable repeat BMP in a.m. Rhinitis stable 05/09/2019- encephalopathy stable continue to follow Vascular dementia stable Hypertension-stable Acute renal failure-stable repeat BMP in a.m. Rhinitis stable Hyperkalemia-potassium 5.3. Will give 15 g of Kayexalate p.o. times 1 repeat BMP in a.m. 05/10/2019 encephalopathy stable continue to follow Vascular dementia stable Hypertension-stable Acute renal failure-stable repeat BMP in a.m. Rhinitis stable Hyperkalemia-improved. Continue to follow. - Time Time Spent with patient: 15-24 minutes
[2019-05-10] MEDS: DOCUSATE SODIUM 100 MG CAPSULE PO SCH ×2 (09:15→17:46)
[2019-05-10] MEDS: FENOFIBRATE NANOCRYSTALLIZED 145 MG TABLET PO SCH (09:16)
[2019-05-10] MEDS: RISPERIDONE 0.25 MG TABLET PO SCH ×2 (09:16→17:46)
[2019-05-10] MEDS: FLUTICASONE NASAL SPRAY 50 MCG/SPRY 120 SPRAY/16 GM NASL SCH (09:16)
[2019-05-10] MEDS: DIVALPROEX SODIUM 500 MG TAB.SR.24H PO SCH ×2 (09:16→22:12)
[2019-05-10] MEDS: ASPIRIN 81 MG TABLET, CHEWABLE PO SCH (09:16)
[2019-05-11] MEDS: RISPERIDONE 0.25 MG TABLET PO SCH ×2 (08:08→17:34)
--- NOTE | 2019-05-11 08:27 | PDOC PROGRESS REPORT ---
Subjective Progress Note for:: 05/11/19 Subjective:: March 29, 2019-patient is confused will not answer questions at this time. Remains in four-point restraints March 30, 2019-patient remains confused only oriented to self. Only in two- point restraints at this time 04/21/2019-no complaints at this time 04/22/2019-no complaints this a.m. eating breakfast 04/23/2019-no complaints this a.m. 2018-no complaints at this time 04/25/2019-no complaints. Patient remains pleasantly confused 04/26/2019-no complaints at this time 04/27/2019-no complaints this a.m. 05/05/2019-no complaints 05/2019-no complaints this a.m. 05/07/2019-no complaints 05/08/2019-no complaints this a.m. 05/09/2019-no complaints 05/10/2019-no complaints at this time. 05/11/2019-no complaints at this time. Reason For Visit: ALTERED MENTAL STATUS,ATAXIA, CVA HYPERTENSION Physical Exam Vital Signs: Temp Pulse Resp BP Pulse Ox 98.3 F 66 14 110/56 L 98 05/10/19 20:10 05/10/19 20:10 05/10/19 20:10 05/10/19 20:10 05/10/19 20:10 Intake & Output 05/10/19 05/11/19 05/12/19 06:59 06:59 06:59 Intake Total 1347 1464 Balance 1347 1464 Weight 65.6 kg General appearance: PRESENT: no acute distress, well-developed, well-nourished Head exam: PRESENT: atraumatic, normocephalic Neck exam: ABSENT: carotid bruit, JVD, lymphadenopathy, thyromegaly Respiratory exam: PRESENT: clear to auscultation jackie. ABSENT: rales, rhonchi, wheezes Cardiovascular exam: PRESENT: RRR. ABSENT: diastolic murmur, rubs, systolic murmur Pulses: PRESENT: normal dorsalis pedis pul Vascular exam: PRESENT: normal capillary refill GI/Abdominal exam: PRESENT: normal bowel sounds, soft. ABSENT: distended, guarding, mass, organolmegaly, rebound, tenderness Extremities exam: PRESENT: full ROM. ABSENT: calf tenderness, clubbing, pedal edema Neurological exam: PRESENT: alert, awake, oriented to person Psychiatric exam: PRESENT: other - Pleasantly confused Skin exam: PRESENT: dry, intact, warm. ABSENT: cyanosis, rash Results Laboratory Results: 05/09/19 06:12 05/10/19 05:34 03/27/19 03/27/19 16:32 16:32 Creatine Kinase 54 L CK-MB (CK-2) < 0.22 Impressions: Brain MRI with MRA 03/27/19 00:00 IMPRESSION: Diminutive appearance of right vertebral artery, incompletely assessed. Otherwise no significant vascular abnormalities CAROTID STENOSIS REFERENCE USING NASCET CRITERIA: % ICA stenosis = (1 - narrowest ICA diameter/diameter of distal cervical ICA) x 100. Mild - <50% stenosis. Moderate - 50-69% stenosis. Severe - 70-94% stenosis. Near occlusion - 95-99% stenosis. Occluded - 100% stenosis. Head MRI 03/27/19 00:00 IMPRESSION: No acute intracranial findings. Carotid Doppler Study 03/30/19 00:00 IMPRESSION: 50 to 69% diameter narrowing by velocity criteria right proximal ICA No flow significant stenosis left carotid bifurcation Antegrade pulsatile vertebral artery flow bilaterally, left vertebral artery is dominant Head CT 04/12/19 11:13 IMPRESSION: Chronic ischemic changes. EVIDENCE OF ACUTE STROKE: NO. Assessment and Plan - Diagnosis (1) Encephalopathy Is this a current diagnosis for this admission?: Yes (2) Vascular dementia Is this a current diagnosis for this admission?: Yes (3) Hypertension Is this a current diagnosis for this admission?: Yes (4) Acute renal failure Qualifiers: Acute renal failure type: unspecified Qualified Code(s): N17.9 - Acute kidney failure, unspecified Is this a current diagnosis for this admission?: Yes (5) Rhinitis Qualifiers: Rhinitis type: acute Qualified Code(s): J00 - Acute nasopharyngitis [common cold] Is this a current diagnosis for this admission?: Yes - Plan Summary Summary: 05/06/2019- Encephalopathy-stable at this time continue to follow Vascular dementia-most likely baseline stable Hypertension stable Acute renal failure stable Rhinitis stable 05/07/2019- Encephalopathy-stable Vascular dementia-Baseline, stable Hypertension-stable Acute renal failure-stable Rhinitis-stable 05/08/2019- encephalopathy stable continue to follow Vascular dementia stable Hypertension-stable Acute renal failure-stable repeat BMP in a.m. Rhinitis stable 05/09/2019- encephalopathy stable continue to follow Vascular dementia stable Hypertension-stable Acute renal failure-stable repeat BMP in a.m. Rhinitis stable Hyperkalemia-potassium 5.3. Will give 15 g of Kayexalate p.o. times 1 repeat BMP in a.m. 05/10/2019 encephalopathy stable continue to follow Vascular dementia stable Hypertension-stable Acute renal failure-stable repeat BMP in a.m. Rhinitis stable Hyperkalemia-improved. Continue to follow. 05/11/2019- encephalopathy stable continue to follow Vascular dementia stable Hypertension-stable Acute renal failure-stable repeat BMP in a.m. Rhinitis stable Hyperkalemia-improved. Continue to follow. - Time Time Spent with patient: 15-24 minutes
[2019-05-11] MEDS: DOCUSATE SODIUM 100 MG CAPSULE PO SCH ×2 (10:13→17:34)
[2019-05-11] MEDS: ASPIRIN 81 MG TABLET, CHEWABLE PO SCH (10:13)
[2019-05-11] MEDS: DIVALPROEX SODIUM 500 MG TAB.SR.24H PO SCH ×2 (10:13→21:08)
[2019-05-11] MEDS: FENOFIBRATE NANOCRYSTALLIZED 145 MG TABLET PO SCH (10:13)
[2019-05-11] MEDS: FLUTICASONE NASAL SPRAY 50 MCG/SPRY 120 SPRAY/16 GM NASL SCH (10:14)
[2019-05-12] MEDS: RISPERIDONE 0.25 MG TABLET PO SCH ×2 (08:23→15:29)
[2019-05-12] MEDS: DOCUSATE SODIUM 100 MG CAPSULE PO SCH ×2 (09:34→17:41)
[2019-05-12] MEDS: FENOFIBRATE NANOCRYSTALLIZED 145 MG TABLET PO SCH (09:34)
[2019-05-12] MEDS: DIVALPROEX SODIUM 500 MG TAB.SR.24H PO SCH ×2 (09:34→21:27)
[2019-05-12] MEDS: ASPIRIN 81 MG TABLET, CHEWABLE PO SCH (09:34)
[2019-05-12] MEDS: FLUTICASONE NASAL SPRAY 50 MCG/SPRY 120 SPRAY/16 GM NASL SCH (09:35)
[2019-05-12] MEDS: CLONIDINE 0.1 MG/24 HR PATCH.TDWK TD SCH (09:35)
--- NOTE | 2019-05-12 19:04 | PDOC PROGRESS REPORT ---
Subjective Progress Note for:: 05/12/19 Subjective:: 05/12/2019. No acute events overnight. Patient comfortably resting in bed, denies any fever, chills, nausea, vomiting, diarrhea, constipation or any urinary symptoms. Patient p.o. tolerant, ambulatory, having normal bowel and bladder movement. Patient is pending transfer to assisted living. Reason For Visit: ALTERED MENTAL STATUS,ATAXIA, CVA HYPERTENSION Physical Exam Vital Signs: Temp Pulse Resp BP Pulse Ox 98.3 F 47 L 16 100/55 L 96 05/12/19 07:04 05/12/19 07:04 05/12/19 07:04 05/12/19 07:04 05/12/19 07:04 Intake & Output 05/11/19 05/12/19 05/13/19 06:59 06:59 06:59 Intake Total 1464 360 480 Balance 1464 360 480 Weight 66.9 kg General appearance: PRESENT: no acute distress, well-developed, well-nourished Head exam: PRESENT: atraumatic, normocephalic Eye exam: PRESENT: conjunctiva pink, EOMI, PERRLA. ABSENT: scleral icterus Ear exam: PRESENT: normal external ear exam Mouth exam: PRESENT: moist, tongue midline Neck exam: ABSENT: carotid bruit, JVD, lymphadenopathy, thyromegaly Respiratory exam: PRESENT: clear to auscultation jackie. ABSENT: rales, rhonchi, wheezes Cardiovascular exam: PRESENT: RRR. ABSENT: diastolic murmur, rubs, systolic murmur Pulses: PRESENT: normal dorsalis pedis pul Vascular exam: PRESENT: normal capillary refill GI/Abdominal exam: PRESENT: normal bowel sounds, soft. ABSENT: distended, guarding, mass, organolmegaly, rebound, tenderness Rectal exam: PRESENT: deferred Extremities exam: PRESENT: full ROM. ABSENT: calf tenderness, clubbing, pedal edema Neurological exam: PRESENT: alert, awake, oriented to person, oriented to place, CN II-XII grossly intact. ABSENT: motor sensory deficit Psychiatric exam: PRESENT: appropriate affect, normal mood. ABSENT: homicidal ideation, suicidal ideation Skin exam: PRESENT: dry, intact, warm. ABSENT: cyanosis, rash Results Laboratory Results: 05/09/19 06:12 05/10/19 05:34 03/27/19 03/27/19 16:32 16:32 Creatine Kinase 54 L CK-MB (CK-2) < 0.22 Impressions: Brain MRI with MRA 03/27/19 00:00 IMPRESSION: Diminutive appearance of right vertebral artery, incompletely assessed. Otherwise no significant vascular abnormalities CAROTID STENOSIS REFERENCE USING NASCET CRITERIA: % ICA stenosis = (1 - narrowest ICA diameter/diameter of distal cervical ICA) x 100. Mild - <50% stenosis. Moderate - 50-69% stenosis. Severe - 70-94% stenosis. Near occlusion - 95-99% stenosis. Occluded - 100% stenosis. Head MRI 03/27/19 00:00 IMPRESSION: No acute intracranial findings. Carotid Doppler Study 03/30/19 00:00 IMPRESSION: 50 to 69% diameter narrowing by velocity criteria right proximal ICA No flow significant stenosis left carotid bifurcation Antegrade pulsatile vertebral artery flow bilaterally, left vertebral artery is dominant Head CT 04/12/19 11:13 IMPRESSION: Chronic ischemic changes. EVIDENCE OF ACUTE STROKE: NO. Assessment and Plan - Diagnosis (1) Encephalopathy Is this a current diagnosis for this admission?: Yes Plan: Resolved. Back at baseline. Patient alert oriented x3, ambulatory, normal bowel and bladder movement. Patient pending transfer to rehab. Continue Depakote 500 p.o. twice daily. Risperdal 0.25 mg twice daily. Clonidine transdermal daily. Avoid benzos if possible. (2) Acute renal failure Qualifiers: Acute renal failure type: unspecified Qualified Code(s): N17.9 - Acute kidney failure, unspecified Is this a current diagnosis for this admission?: Yes Plan: Resolved. Encourage p.o. fluids. Avoid nephrotoxic meds. CMP on 05/10/2019 WNL. (3) Hypertension Is this a current diagnosis for this admission?: Yes Plan: Euvolemic. Normotensive. On clonidine patch for behavioral disturbance (4) Vascular dementia Is this a current diagnosis for this admission?: Yes Plan: Supportive care; remaining management as above. - Plan Summary Summary: 05/06/2019- Encephalopathy-stable at this time continue to follow Vascular dementia-most likely baseline stable Hypertension stable Acute renal failure stable Rhinitis stable 05/07/2019- Encephalopathy-stable Vascular dementia-Baseline, stable Hypertension-stable Acute renal failure-stable Rhinitis-stable 05/08/2019- encephalopathy stable continue to follow Vascular dementia stable Hypertension-stable Acute renal failure-stable repeat BMP in a.m. Rhinitis stable 05/09/2019- encephalopathy stable continue to follow Vascular dementia stable Hypertension-stable Acute renal failure-stable repeat BMP in a.m. Rhinitis stable Hyperkalemia-potassium 5.3. Will give 15 g of Kayexalate p.o. times 1 repeat BMP in a.m. 05/10/2019 encephalopathy stable continue to follow Vascular dementia stable Hypertension-stable Acute renal failure-stable repeat BMP in a.m. Rhinitis stable Hyperkalemia-improved. Continue to follow. 05/11/2019- encephalopathy stable continue to follow Vascular dementia stable Hypertension-stable Acute renal failure-stable repeat BMP in a.m. Rhinitis stable Hyperkalemia-improved. Continue to follow.
[2019-05-13] MEDS: RISPERIDONE 0.25 MG TABLET PO SCH ×2 (08:22→17:36)
[2019-05-13 09:00] LABS: ABSOLUTE BASOPHILS # (AUTO) 0.1 10^3/uL (0.0-0.2); ABSOLUTE EOSINOPHILS # (AUTO) 0.3 10^3/uL (0.0-0.6); ABSOLUTE LYMPHOCYTES (AUTO) 2.3 10^3/uL (0.5-4.7); ABSOLUTE MONOCYTES (AUTO) 0.7 10^3/uL (0.1-1.4); ABSOLUTE NEUT (AUTO) 4.3 10^3/uL (1.7-8.2); BASOPHILS % (AUTO) 0.9 % (0-2); EOSINOPHILS % (AUTO) 3.5 % (0-6); HEMATOCRIT 33.1 % (37.9-51.0); HEMOGLOBIN 11.1 g/dL (13.5-17.0); LYMPHOCYTES % (AUTO) 30.3 % (13-45); MEAN CORPUSCULAR HEMOGLOBIN 30.8 pg (27.0-33.4); MEAN CORPUSCULAR HGB CONC 33.6 g/dL (32.0-36.0); MEAN CORPUSCULAR VOLUME 92 fl (80-97); MONOCYTES % (AUTO) 9.4 % (3-13); PLATELET COUNT 314 10^3/uL (150-450); RED BLOOD COUNT 3.62 10^6/uL (4.35-5.55); RED CELL DISTRIBUTION WIDTH 14.9 % (11.5-14.0); SEGMENTED NEUTROPHILS % (AUTO) 55.9 % (42-78); TOTAL CELLS COUNTED % (AUTO) 100 %; WHITE BLOOD COUNT 7.7 10^3/uL (4.0-10.5)
[2019-05-13 09:17] LABS: ALBUMIN 3.7 g/dL (3.5-5.0); ALKALINE PHOSPHATASE 44 U/L (38-126); ANION GAP 11 (5-19); ASPARTATE AMINO TRANSFERASE 37 U/L (17-59); BILIRUBIN,DIRECT 0.1 mg/dL (0.0-0.4); BILIRUBIN,TOTAL 0.3 mg/dL (0.2-1.3); BLOOD UREA NITROGEN 34 mg/dL (7-20); CALCIUM 9.3 mg/dL (8.4-10.2); CARBON DIOXIDE 25 mmol/L (22-30); CHLORIDE 103 mmol/L (98-107); GLUCOSE 139 mg/dL (75-110); POTASSIUM 4.2 mmol/L (3.6-5.0); TOTAL PROTEIN 7.2 g/dL (6.3-8.2)
--- NOTE | 2019-05-13 11:01 | PDOC PROGRESS REPORT ---
Subjective Progress Note for:: 05/13/19 Subjective:: Patient is comfortable in the chair communicating okay. Not in distress. No acute events in the last 24 hours. Afebrile. Reason For Visit: ALTERED MENTAL STATUS,ATAXIA, CVA HYPERTENSION Physical Exam Vital Signs: Temp Pulse Resp BP Pulse Ox 97.5 F 54 L 20 100/57 L 97 05/13/19 07:10 05/13/19 07:10 05/13/19 07:10 05/13/19 07:10 05/13/19 07:10 Intake & Output 05/12/19 05/13/19 05/14/19 06:59 06:59 06:59 Intake Total 360 1005 Balance 360 1005 Weight 66.9 kg 66.5 kg General appearance: PRESENT: no acute distress, cooperative Head exam: PRESENT: atraumatic Eye exam: PRESENT: PERRLA Mouth exam: PRESENT: moist, tongue midline Teeth exam: PRESENT: poor dentation Neck exam: ABSENT: carotid bruit, JVD, lymphadenopathy, thyromegaly Respiratory exam: PRESENT: decreased breath sounds Pulses: PRESENT: normal dorsalis pedis pul GI/Abdominal exam: PRESENT: normal bowel sounds, soft. ABSENT: distended, guar ding, mass, organolmegaly, rebound, tenderness Rectal exam: PRESENT: deferred Extremities exam: PRESENT: full ROM. ABSENT: calf tenderness, clubbing, pedal edema Neurological exam: PRESENT: alert, awake, oriented to person, oriented to place, oriented to time, oriented to situation, CN II-XII grossly intact. ABSENT: motor sensory deficit Psychiatric exam: PRESENT: appropriate affect, normal mood. ABSENT: homicidal ideation, suicidal ideation Results Laboratory Results: 05/13/19 08:46 05/13/19 08:46 05/13/19 05/13/19 08:46 08:46 WBC 7.7 RBC 3.62 L Hgb 11.1 L Hct 33.1 L MCV 92 MCH 30.8 MCHC 33.6 RDW 14.9 H Plt Count 314 Seg Neutrophils % 55.9 Sodium 138.9 Potassium 4.2 Chloride 103 Carbon Dioxide 25 Anion Gap 11 BUN 34 H Creatinine 1.31 H Est GFR ( Amer) > 60 Glucose 139 H Calcium 9.3 Magnesium 1.6 Total Bilirubin 0.3 AST 37 Alkaline Phosphatase 44 Total Protein 7.2 Albumin 3.7 03/27/19 03/27/19 16:32 16:32 Creatine Kinase 54 L CK-MB (CK-2) < 0.22 Impressions: Brain MRI with MRA 03/27/19 00:00 IMPRESSION: Diminutive appearance of right vertebral artery, incompletely assessed. Otherwise no significant vascular abnormalities CAROTID STENOSIS REFERENCE USING NASCET CRITERIA: % ICA stenosis = (1 - narrowest ICA diameter/diameter of distal cervical ICA) x 100. Mild - <50% stenosis. Moderate - 50-69% stenosis. Severe - 70-94% stenosis. Near occlusion - 95-99% stenosis. Occluded - 100% stenosis. Head MRI 03/27/19 00:00 IMPRESSION: No acute intracranial findings. Carotid Doppler Study 03/30/19 00:00 IMPRESSION: 50 to 69% diameter narrowing by velocity criteria right proximal ICA No flow significant stenosis left carotid bifurcation Antegrade pulsatile vertebral artery flow bilaterally, left vertebral artery is dominant Head CT 04/12/19 11:13 IMPRESSION: Chronic ischemic changes. EVIDENCE OF ACUTE STROKE: NO. Assessment and Plan - Plan Summary Summary: 05/06/2019- Encephalopathy-stable at this time continue to follow Vascular dementia-most likely baseline stable Hypertension stable Acute renal failure stable Rhinitis stable 05/07/2019- Encephalopathy-stable Vascular dementia-Baseline, stable Hypertension-stable Acute renal failure-stable Rhinitis-stable 05/08/2019- encephalopathy stable continue to follow Vascular dementia stable Hypertension-stable Acute renal failure-stable repeat BMP in a.m. Rhinitis stable 05/09/2019- encephalopathy stable continue to follow Vascular dementia stable Hypertension-stable Acute renal failure-stable repeat BMP in a.m. Rhinitis stable Hyperkalemia-potassium 5.3. Will give 15 g of Kayexalate p.o. times 1 repeat BMP in a.m. 05/10/2019 encephalopathy stable continue to follow Vascular dementia stable Hypertension-stable Acute renal failure-stable repeat BMP in a.m. Rhinitis stable Hyperkalemia-improved. Continue to follow. 05/11/2019- encephalopathy stable continue to follow 05/13/2019-patient alert awake communicating well. Admitted with acute encephalopathy which was resolved. altered mental status/acute encephalopathy most likely secondary to renal failure. Vascular dementia stable Hypertension-stable 05/13/2019-patient blood pressure today is 111/66. Stable. Acute renal failure-stable repeat BMP in a.m. 05/13/2019-since admission creatinine is 3.6 and today's creatinine is 1.3. Acute kidney injury due to prerenal causes resolved. Rhinitis stable Hyperkalemia-improved. Continue to follow.
[2019-05-13] MEDS: FENOFIBRATE NANOCRYSTALLIZED 145 MG TABLET PO SCH (11:03)
[2019-05-13] MEDS: CYANOCOBALAMIN (VITAMIN B-12) 1,000 MCG TABLET PO SCH (11:03)
[2019-05-13] MEDS: DIVALPROEX SODIUM 500 MG TAB.SR.24H PO SCH ×2 (11:03→23:08)
[2019-05-13] MEDS: ASPIRIN 81 MG TABLET, CHEWABLE PO SCH (11:04)
[2019-05-13] MEDS: DOCUSATE SODIUM 100 MG CAPSULE PO SCH ×2 (11:04→17:36)
[2019-05-13] MEDS: FLUTICASONE NASAL SPRAY 50 MCG/SPRY 120 SPRAY/16 GM NASL SCH (11:18)
[2019-05-14] MEDS: DIVALPROEX SODIUM 500 MG TAB.SR.24H PO SCH ×2 (07:27→09:20)
[2019-05-14] MEDS: FENOFIBRATE NANOCRYSTALLIZED 145 MG TABLET PO SCH (09:20)
[2019-05-14] MEDS: DOCUSATE SODIUM 100 MG CAPSULE PO SCH (09:20)
[2019-05-14] MEDS: CYANOCOBALAMIN (VITAMIN B-12) 1,000 MCG TABLET PO SCH (09:20)
[2019-05-14] MEDS: ASPIRIN 81 MG TABLET, CHEWABLE PO SCH (09:20)
[2019-05-14] MEDS: FLUTICASONE NASAL SPRAY 50 MCG/SPRY 120 SPRAY/16 GM NASL SCH (09:20)
[2019-05-14] MEDS: RISPERIDONE 0.25 MG TABLET PO SCH (09:22)
--- NOTE | 2019-05-14 09:29 | PDOC TRANSFER SUMMARY ---
Impression - Admit/DC Date/PCP Admission Date/Primary Care Provider: 03/27/19 18:28 MANISH POLLARD MD Discharge Date: 05/14/19 - Discharge Diagnosis (1) Acute renal failure Is this a current diagnosis for this admission?: Yes (2) Dehydration Is this a current diagnosis for this admission?: Yes (3) Encephalopathy Is this a current diagnosis for this admission?: Yes (4) Hypertension Is this a current diagnosis for this admission?: Yes (5) Rhinitis Is this a current diagnosis for this admission?: Yes (6) Vascular dementia Is this a current diagnosis for this admission?: No - Assessment Summary: 05/06/2019- Encephalopathy-stable at this time continue to follow Vascular dementia-most likely baseline stable Hypertension stable Acute renal failure stable Rhinitis stable 05/07/2019- Encephalopathy-stable Vascular dementia-Baseline, stable Hypertension-stable Acute renal failure-stable Rhinitis-stable 05/08/2019- encephalopathy stable continue to follow Vascular dementia stable Hypertension-stable Acute renal failure-stable repeat BMP in a.m. Rhinitis stable 05/09/2019- encephalopathy stable continue to follow Vascular dementia stable Hypertension-stable Acute renal failure-stable repeat BMP in a.m. Rhinitis stable Hyperkalemia-potassium 5.3. Will give 15 g of Kayexalate p.o. times 1 repeat BMP in a.m. 05/10/2019 encephalopathy stable continue to follow Vascular dementia stable Hypertension-stable Acute renal failure-stable repeat BMP in a.m. Rhinitis stable Hyperkalemia-improved. Continue to follow. 05/11/2019- encephalopathy stable continue to follow 05/13/2019-patient alert awake communicating well. Admitted with acute encephalopathy which was resolved. altered mental status/acute encephalopathy most likely secondary to renal failure. 05/2019-patient admitted with acute encephalopathy which was resolved. Patient is comfortable in the chair eating his request. Communicating well. Cooperative. Vascular dementia stable Hypertension-stable 05/13/2019-patient blood pressure today is 111/66. Stable. 05/14/2019-blood pressure today is 90/40. Plan is to discontinue amlodipine and to continue clonidine patch because of the psychiatric issues. Acute renal failure-stable repeat BMP in a.m. 05/13/2019-since admission creatinine is 3.6 and today's creatinine is 1.3. Acute kidney injury due to prerenal causes resolved. 05/14/2019-patient admitted with acute renal failure at the time of admission creatinine was 3.6 latest creatinine is 1.3 he acute kidney injury is resolved. Rhinitis stable Hyperkalemia-improved. Continue to follow. 05/14/2019-latest serum potassium is 4.3 and hyperkalemia is resolved. - Additional Information Resuscitation Status: Full Code Discharge Diet: Regular Discharge Activity: Activity As Tolerated, Balance Activity w/Rest Referrals: MANISH POLLARD MD [Primary Care Provider] - Prescriptions: Clonidine [Catapres-Tts 1 (0.1 mg/24 Hr) Transderm Patch] 1 each TD Tu@10 #4 patch.tdwk Divalproex Sodium [Depakote ER 250 mg Tablet] 500 mg PO Q12 #60 tab.sr.24h Erythromycin Base [E-Mycin 0.5% Oph Ointment 3.5 gm] 1 applic OD Q6 #1 tube Atorvastatin Calcium [Lipitor 40 mg Tablet] 40 mg PO QHS #30 tablet Famotidine [Pepcid 20 mg Tablet] 20 mg PO Q12 #60 tablet Risperidone [Risperdal 0.25 mg Tablet] 0.25 mg PO BID@0800,1600 #60 tablet Fenofibrate Nanocrystallized [Tricor 145 mg Tablet] 145 mg PO DAILY #30 tablet Home Medications: Aspirin [Ecotrin 81 mg EC Tablet] 81 mg PO DAILY 03/27/19 Cyanocobalamin (Vitamin B-12) [Vitamin B-12 1000 mcg Tablet] 1,000 mcg PO DAILY 03/27/19 Acetaminophen [Tylenol 325 mg Tablet] 650 mg PO Q4HP PRN tablet 04/17/19 Aspirin [Ecotrin 81 mg EC Tablet] 81 mg PO QHS tabec 04/17/19 Atorvastatin Calcium [Lipitor 40 mg Tablet] 40 mg PO QHS #30 tablet 04/17/19 Clonidine [Catapres-Tts 1 (0.1 mg/24 Hr) Transderm Patch] 1 each TD Tu@10 #4 patch.tdwk 04/17/19 Divalproex Sodium [Depakote ER 250 mg Tablet] 500 mg PO Q12 #60 tab.sr.24h 04/17/19 Docusate Sodium [Colace 100 mg Capsule] 100 mg PO DAILY capsule 04/17/19 Erythromycin Base [E-Mycin 0.5% Oph Ointment 3.5 gm] 1 applic OD Q6 #1 tube 04/17/19 Famotidine [Pepcid 20 mg Tablet] 20 mg PO Q12 #60 tablet 04/17/19 Fenofibrate Nanocrystallized [Tricor 145 mg Tablet] 145 mg PO DAILY #30 tablet 04/17/19 Risperidone [Risperdal 0.25 mg Tablet] 0.25 mg PO BID@0800,1600 #60 tablet 04/17/19 Aspirin [Aspirin 81 mg Chewable Tablet] 81 mg PO DAILY tab.chew 05/14/19 Bisacodyl [Dulcolax 10 mg Supp.rect] 10 mg GA DAILYP PRN supp.rect 05/14/19 Divalproex Sodium [Depakote ER 500 mg Tab.sr] 500 mg PO Q12 tab.sr.24h 05/14/19 Fenofibrate Nanocrystallized [Tricor 145 mg Tablet] 145 mg PO DAILY tablet 05/14/19 Fluticasone Propionate [Flonase Nasal Allred 50 Mcg/Allred 16 gm] 2 spray NASL DAILY spray.pump 05/14/19 Ziprasidone HCl [Geodon] 10 mg IM Q6HP PRN capsule 05/14/19 History of Present Illiness History of Present Illness: DONALD GOMES is a 58 year old male 58 year old male who for the last week now has felt lightheaded and "off- balance". he has also been shaky and confused according to his sister. Patient is also felt weaker in the last week. Patient had a CVA about 6 years ago that left him with weakness in his left lower extremity. Patient is also had some dysarthria with his speech, but that seems to be worse in the last week as well according to his sister On his admission labs his BUN is elevated at 51 creatinine 3.61 Hospital Course Hospital Course: 05/14/[id number]-old male admitted with acute encephalopathy, acute renal failure and a vascular dementia. Acute renal failure is resolved vascular dementia stable, acute encephalopathy is resolved and patient mental status at his base line. Psych evaluation was done during the hospital stay, patient got a bed in [facility] Physical Exam Vital Signs: Temp Pulse Resp BP Pulse Ox 97.9 F 50 L 18 112/65 97 05/14/19 07:33 05/14/19 07:33 05/14/19 07:33 05/14/19 07:33 05/14/19 07:33 Intake & Output 05/13/19 05/14/19 05/15/19 06:59 06:59 06:59 Intake Total 1005 480 Balance 1005 480 Weight 66.5 kg 68.1 kg General appearance: PRESENT: no acute distress, cooperative, thin Head exam: PRESENT: atraumatic Eye exam: PRESENT: PERRLA Mouth exam: PRESENT: moist, tongue midline Teeth exam: PRESENT: poor dentation Neck exam: ABSENT: carotid bruit, JVD, lymphadenopathy, thyromegaly Respiratory exam: PRESENT: decreased breath sounds Cardiovascular exam: PRESENT: RRR. ABSENT: diastolic murmur, rubs, systolic murmur GI/Abdominal exam: PRESENT: normal bowel sounds, soft. ABSENT: distended, guarding, mass, organolmegaly, rebound, tenderness Rectal exam: PRESENT: deferred Extremities exam: PRESENT: full ROM. ABSENT: calf tenderness, clubbing, pedal edema Neurological exam: PRESENT: alert, awake, oriented to person, oriented to place, oriented to time, oriented to situation, CN II-XII grossly intact. ABSENT: motor sensory deficit Psychiatric exam: PRESENT: appropriate affect, normal mood. ABSENT: homicidal ideation, suicidal ideation Results Laboratory Results: WBC 7.7 10^3/uL (4.0-10.5) 05/13/19 08:46 RBC 3.62 10^6/uL (4.35-5.55) L 05/13/19 08:46 Hgb 11.1 g/dL (13.5-17.0) L 05/13/19 08:46 Hct 33.1 % (37.9-51.0) L 05/13/19 08:46 MCV 92 fl (80-97) 05/13/19 08:46 MCH 30.8 pg (27.0-33.4) 05/13/19 08:46 MCHC 33.6 g/dL (32.0-36.0) 05/13/19 08:46 RDW 14.9 % (11.5-14.0) H 05/13/19 08:46 Plt Count 314 10^3/uL (150-450) 05/13/19 08:46 Lymph % (Auto) 30.3 % (13-45) 05/13/19 08:46 [place] % (Auto) 9.4 % (3-13) 05/13/19 08:46 Eos % (Auto) 3.5 % (0-6) 05/13/19 08:46 Baso % (Auto) 0.9 % (0-2) 05/13/19 08:46 Absolute Neuts (auto) 4.3 10^3/uL (1.7-8.2) 05/13/19 08:46 Absolute Lymphs (auto) 2.3 10^3/uL (0.5-4.7) 05/13/19 08:46 Absolute Monos (auto) 0.7 10^3/uL (0.1-1.4) 05/13/19 08:46 Absolute Eos (auto) 0.3 10^3/uL (0.0-0.6) 05/13/19 08:46 Absolute Basos (auto) 0.1 10^3/uL (0.0-0.2) 05/13/19 08:46 Seg Neutrophils % 55.9 % (42-78) 05/13/19 08:46 PT 15.6 SEC (11.4-15.4) H 03/27/19 20:11 INR 1.24 03/27/19 20:11 APTT 25.9 SEC (23.5-35.8) 03/28/19 06:30 Sodium 138.9 mmol/L (137-145) 05/13/19 08:46 Potassium 4.2 mmol/L (3.6-5.0) 05/13/19 08:46 Chloride 103 mmol/L (98-107) 05/13/19 08:46 Carbon Dioxide 25 mmol/L (22-30) 05/13/19 08:46 Anion Gap 11 (5-19) 05/13/19 08:46 BUN 34 mg/dL (7-20) H 05/13/19 08:46 Creatinine 1.31 mg/dL (0.52-1.25) H 05/13/19 08:46 Est GFR ( Amer) > 60 (>60) 05/13/19 08:46 Est GFR (MDRD) Non-Af 56 (>60) L 05/13/19 08:46 Glucose 139 mg/dL (75-110) H 05/13/19 08:46 POC Glucose 95 mg/dL (70-110) 04/01/19 12:07 Calcium 9.3 mg/dL (8.4-10.2) 05/13/19 08:46 Phosphorus 4.1 mg/dL (2.5-4.5) 03/28/19 06:30 Magnesium 1.6 mg/dL (1.6-2.3) 05/13/19 08:46 Total Bilirubin 0.3 mg/dL (0.2-1.3) 05/13/19 08:46 Direct Bilirubin 0.1 mg/dL (0.0-0.4) 05/13/19 08:46 Neonat Total Bilirubin Not Reportable 05/13/19 08:46 Neonat Direct Bilirubin Not Reportable 05/13/19 08:46 Neonat Indirect Bili Not Reportable 05/13/19 08:46 AST 37 U/L (17-59) 05/13/19 08:46 ALT 33 U/L (<50) 05/13/19 08:46 Alkaline Phosphatase 44 U/L (38-126) 05/13/19 08:46 Ammonia < 8.7 umol/L (9-33) L 03/27/19 20:11 Creatine Kinase 54 U/L (55-170) L 03/27/19 16:32 CK-MB (CK-2) < 0.22 ng/mL (<4.55) 03/27/19 16:32 Total Protein 7.2 g/dL (6.3-8.2) 05/13/19 08:46 Albumin 3.7 g/dL (3.5-5.0) 05/13/19 08:46 Globulin 3.0 g/dL (2.2-3.9) 03/29/19 03:23 Alb/Glob Ratio Alt Meth 1.2 (0.7-1.7) 03/29/19 03:23 Mcslj-9-Leclfpgrz 0.2 g/dL (0.0-0.4) 03/29/19 03:23 Zkowz-5-Jagpspjcs 0.5 g/dL (0.4-1.0) 03/29/19 03:23 Beta Globulins 0.9 g/dL (0.7-1.3) 03/29/19 03:23 Gamma Globulins 1.3 g/dL (0.4-1.8) 03/29/19 03:23 M-Salvador 1.1 g/dL (Not Observ) H 03/29/19 03:23 Triglycerides 118 mg/dL (<150) 03/28/19 06:30 Cholesterol 118.82 mg/dL (0-200) 03/28/19 06:30 LDL Cholesterol Direct 70 mg/dL (<100) 03/28/19 06:30 VLDL Cholesterol 24.0 mg/dL (10-31) 03/28/19 06:30 HDL Cholesterol 31 mg/dL (>40) L 03/28/19 06:30 Vitamin B12 957.0 pg/mL (239-931) H 03/29/19 03:23 Folate 6.10 ng/mL (>2.76) 04/03/19 11:38 TSH 0.46 uIU/mL (0.47-4.68) L 03/27/19 16:32 Free T4 1.19 ng/dL (0.78-2.19) 03/29/19 03:23 Free T3 pg/mL 2.98 pg/mL (2.77-5.27) 03/31/19 18:07 Immunoglobulin A 134 mg/dL (90-386) 03/29/19 03:23 Immunoglobulin G 1489 mg/dL (700-1600) 03/29/19 03:23 Immunoglobulin M 26 mg/dL (20-172) 03/29/19 03:23 Serum Immunofixation Comment (.) 03/29/19 03:23 Immunofixation Note Comment (.) 03/29/19 03:23 Urine Color YELLOW 03/28/19 20:55 Urine Appearance CLEAR 03/28/19 20:55 Urine pH 5.0 (5.0-9.0) 03/28/19 20:55 Ur Specific [place] 1.016 03/28/19 20:55 Urine Protein NEGATIVE mg/dL (NEGATIVE) 03/28/19 20:55 Urine Glucose (UA) NEGATIVE mg/dL (NEGATIVE) 03/28/19 20:55 Urine Ketones NEGATIVE mg/dL (NEGATIVE) 03/28/19 20:55 Urine Blood NEGATIVE (NEGATIVE) 03/28/19 20:55 Urine Nitrite NEGATIVE (NEGATIVE) 03/28/19 20:55 Urine Bilirubin NEGATIVE (NEGATIVE) 03/28/19 20:55 Urine Urobilinogen NEGATIVE mg/dL (<2.0) 03/28/19 20:55 Ur Leukocyte Esterase NEGATIVE (NEGATIVE) 03/28/19 20:55 Urine WBC (Auto) 2 /HPF 03/28/19 20:55 Urine RBC (Auto) 2 /HPF 03/28/19 20:55 U Hyaline Cast (Auto) 1 /LPF 03/28/19 20:55 Squamous Epi Cells Auto 1 /HPF 03/28/19 20:55 Urine Mucus (Auto) RARE /LPF 03/28/19 20:55 Urine Creatinine 127.6 mg/dL (22-328) 03/28/19 20:55 Urine Sodium 161 mmol/L (30-90) H 03/28/19 20:55 Urine Ascorbic Acid NEGATIVE (NEGATIVE) 03/28/19 20:55 Urine Opiates Screen NEGATIVE 03/28/19 20:55 Urine Methadone Screen NEGATIVE 03/28/19 20:55 Ur Barbiturates Screen NEGATIVE 03/28/19 20:55 Ur Phencyclidine Scrn NEGATIVE 03/28/19 20:55 Ur Amphetamines Screen NEGATIVE 03/28/19 20:55 U Benzodiazepines Scrn NEGATIVE 03/28/19 20:55 Urine Cocaine Screen NEGATIVE 03/28/19 20:55 U Marijuana (THC) Screen NEGATIVE 03/28/19 20:55 Serum Alcohol < 10 mg/dL (NONE DETECTED) 03/27/19 12:31 Arsenic 5 ug/L (2-23) 03/29/19 09:53 Lead None Detected ug/dL (0-4) 03/29/19 09:53 Mercury None Detected ug/L (0.0-14.9) 03/29/19 09:53 Albumin (HEATHER) 3.4 g/dL (2.9-4.4) 03/29/19 03:23 HIV 1&2 Antibody NEGATIVE (NEGATIVE) 03/29/19 03:23 03/27/19 16:32 CK-MB (CK-2) < 0.22 Impressions: Brain MRI with MRA 03/27/19 00:00 IMPRESSION: Diminutive appearance of right vertebral artery, incompletely assessed. Otherwise no significant vascular abnormalities CAROTID STENOSIS REFERENCE USING NASCET CRITERIA: % ICA stenosis = (1 - narrowest ICA diameter/diameter of distal cervical ICA) x 100. Mild - <50% stenosis. Moderate - 50-69% stenosis. Severe - 70-94% stenosis. Near occlusion - 95-99% stenosis. Occluded - 100% stenosis. Head MRI 03/27/19 00:00 IMPRESSION: No acute intracranial findings. Head CT 03/27/19 16:05 IMPRESSION: MILD CHRONIC CHANGES OF ATROPHY AND MICROVASCULAR ISCHEMIA. NO ACUTE PROCESS. EVIDENCE OF ACUTE STROKE: NO. Carotid Doppler Study 03/30/19 00:00 IMPRESSION: 50 to 69% diameter narrowing by velocity criteria right proximal ICA No flow significant stenosis left carotid bifurcation Antegrade pulsatile vertebral artery flow bilaterally, left vertebral artery is dominant Head CT 04/12/19 11:13 IMPRESSION: Chronic ischemic changes. EVIDENCE OF ACUTE STROKE: NO. Plan Plan of Treatment: Patient is going to the [facility] today for long-term care. Time Spent: Greater than 30 Minutes Stroke Is this a Stroke Patient?: No Acute Heart Failure - Is this a Heart Failure Patient?: No
[2019-05-14 12:53] VITALS: BP 107/50
== END 2019-05-14 16:11 | DRG 682 ==
LOC: ER 15:56 → EH 18:28 → 3W 03-28 00:15 → ICU 03-28 18:32 → 3N 04-01 20:50 → 3S 04-09 13:45 → 4W 04-17 00:30 → 3W 04-17 18:01 → 3N 04-18 20:00 → 3W 04-21 02:58
PROVIDERS: ADMIT Hospitalist; ATTEND Hospitalist
DX: N17.9 Acute kidney failure, unspecified (principal); G93.41 Metabolic encephalopathy; I69.954 Hemiplegia and hemiparesis following unspecified cerebrovascular disease affecting left non-dominant side; F01.50 Vascular dementia, unspecified severity, without behavioral disturbance, psychotic disturbance, mood disturbance, and anxiety; E86.0 Dehydration; I10 Essential (primary) hypertension; E87.5 Hyperkalemia; E78.5 Hyperlipidemia, unspecified; R41.0 Disorientation, unspecified; E05.90 Thyrotoxicosis, unspecified without thyrotoxic crisis or storm; F10.20 Alcohol dependence, uncomplicated; J00 Acute nasopharyngitis [common cold]; F17.210 Nicotine dependence, cigarettes, uncomplicated; E78.00 Pure hypercholesterolemia, unspecified; Z78.1 Physical restraint status; Z23 Encounter for immunization; Z79.899 Other long term (current) drug therapy; Z79.82 Long term (current) use of aspirin
CPT/HCPCS: 36415; 70450; 70544; 70551; 80048; 80053; 80061; 80307; 81001; 82140; 82175; 82550; 82553; 82570; 82607; 82746; 82962; 83655; 83735; 83825; 84100; 84132; 84300; 84439; 84443; 84481; 85025; 85027; 85610; 85730; 86320; 86701; 90686; 93005; 93010; 93880; 99291; J1630; J1650; J2060; J3230; J3480; J3486; J3490; J7030